=== PATIENT | male | born 1950 | race Caucasian/White ===

== ENCOUNTER 2016-12-24 16:57 | Outpatient (CLI) | payer MEDICARE, BC ==
[~2016-12-24] VITALS: Ht 182.9 cm; Wt 68.1 kg
[~2016-12-24 16:57] MED LIST: ACHD5005 PO; AMOX500C2 PO; AMT10T PO; ASP81TEC PO; ATRV10T PO; BIMA2.5D3 OS; BRIM5DRO12 OS; BUDE3CAP5 PO; CARB10DR OP; CARB10DR OS; CHOL100011 PO; CLD600T PO; CPR500T PO; CYAN100053 IJ; CYAN100053 INJ; DCS100C; DIAZ-345 PO; ENDOCORT PO; FLC1T; FLC1T PO; FNT25TD; FOLI1TAB24 PO; FOLI1TAB6 PO; HCTZ12.5T PO; HYDR-229 PO; HYDR-2890 PO; HYDR-3063 PO; HYDR-31; HYDR25TA4 PO; HYOS0.1283 SL; KCL20TCR PO; KETO-22 PO; LORA0.5T PO; MAGN400C PO; METH2.5T PO; METO100T2 PO; METR500T PO; MSL250CCR; MSL250CCR PO; MTP50T PO; MTX2.5T; MULT-608 PO; MULT-974 PO; NORVASC; OLME20TA5; OLME20TA5 PO; OLME40TA14; OMEP20TA2 PO; ONDA4TAB8 PO; ONDAN4ODT PO; PENTASA; PENTASA 500 MG PO; PHEN100T17; PHEN200T27 PO; POTA99TA25 PO; PRED20TA PO; PREG50C PO; PRX10T; PYRI100T59 PO; SERT100T PO; SERT50TA2 PO; SERT50TA9 PO; SUMA100T2 PO; Terazosin Hcl PO; VALTREX; VERA100C4 PO; VERA240C2 PO; VERA240T98 PO; ZLP10T; ZLP5T PO; ZOLP10TA5 PO; ZOLP5TAB6 PO; [UNRECOGNIZED DRUG - OTHER]
--- OUTSIDE RECORDS SUMMARY | 2016-12-24 17:01 | XMS REPORT ---
Author Author FELICIA CERVANTES Organization [employer] Address Unknown Phone Unavailable Care Team Providers Care Electronic Prepress Technician Name Role Phone FELICIA CERVANTES CP Unavailable Allergies, Adverse Reactions, Alerts Substance Reaction Event Type raglan Info Not Available Non Drug Allergy Problems Problem Type Condition Code Onset Dates Condition Status Assessment Dental caries K02.9 Active Assessment Dental examination Z01.20 Active Medications Medication Code System Code Instructions Start Date End Date Status Dosage Restasis [facility] [address]-78 not defined Lumigan [facility] [address]-80 not defined Verapamil HCl [facility] [address]-15 not defined Dexilant [facility] [address]-85 not defined Folic Acid [facility] [address]-18 not defined Alphagan P [facility] [id number] not defined Benicar [facility] [id number] not defined Procedures Procedure Coding System Code Date INTRAORL-PERIAPICAL 1 FILM 44613 CPT-4 D0220 June 04, 2016 EXTRAC ERUPTED TOOTH/EXPOSED ROOT CPT-4 D7140 June 04, 2016 LTD ORAL EVALUATION - PROBLEM FOCUS CPT-4 D0140 June 04, 2016 Vital Signs Date/Time: June 04, 2016 Blood Pressure Diastolic 63 mmHg Blood Pressure Systolic 117 mmHg Results No Known Results Summary Purpose [employer] Submission
[2016-12-24 17:20] VITALS: BP 158/93
[2016-12-24 17:45] LABS: BILIRUBIN,URINE NEGATIVE (NEGATIVE); KETONES,URINE 1+ (NEGATIVE); LEUKOCYTE ESTERASE ,URINE 1+ (NEGATIVE); NITRITE,URINE NEGATIVE (NEGATIVE); PH,URINE 5 (5-9); PROTEIN,URINE 3+ (NEGATIVE); UROBILINOGEN,URINE NORMAL (NORMAL)
[2016-12-24] MEDS ORDERED: NS IV 1000 ML 1,000 ML ONE (17:46)
[2016-12-24] MEDS ORDERED: NS IV 1000 ML 1,000 ML IV NR (18:00)
[2016-12-24] MEDS ORDERED: ONDANSETRON 4 MG/2 ML (SDV) Z0FRAN IV PRN (18:00)
[2016-12-24 18:25] LABS: HYALINE CASTS, URINE >50 /LPF
== END 2016-12-24 19:15 | disposition home or self-care (01) ==
LOC: 4THo 16:57 → SDC 19:15
PROVIDERS: ATTEND Nurse Practitioner Family
DX: E86.0 Dehydration (principal); K50.90 Crohn's disease, unspecified, without complications
CPT/HCPCS: 81000; 87088; 96365; 96374

== ENCOUNTER 2017-02-22 00:36 | Observation (INO) | payer MEDICARE, BC ==
[~2017-02-22] VITALS: Ht 177.8 cm; Wt 69.2 kg
[2017-02-22] VITALS (13 sets, daily range): BP systolic 127–152; BP diastolic 69–90
[2017-02-22 00:50] LABS: BASOPHILS % (AUTO) 0 % (0-10); EOSINOPHILS # (AUTO) 0.1 10^3/uL (0.0-0.3); EOSINOPHILS % (AUTO) 1 % (0-10); LYMPHOCYTES # (AUTO) 1.7 X 10^3 (1.0-4.0); LYMPHOCYTES % (AUTO) 21 % (12-44); MEAN CORPUSCULAR HEMOGLOBIN 32 PG (25-34); MEAN CORPUSCULAR HGB CONC 34 G/DL (32-36); MEAN CORPUSCULAR VOLUME 95 FL (80-99); MEAN PLATELET VOLUME 10.3 FL (7.4-10.4); MONOCYTES # (AUTO) 1.1 X 10^3 (0.0-1.0); MONOCYTES % (AUTO) 14 % (0-12); NEUTROPHILS % (AUTO) 64 % (42-75); PLATELET COUNT 152 10^3/uL (130-400); RED BLOOD COUNT 3.66 10^6/uL (4.35-5.85); RED CELL DISTRIBUTION WIDTH 13.1 % (10.0-14.5); WHITE BLOOD COUNT 7.8 10^3/uL (4.3-11.0)
[2017-02-22 01:00] LABS: INR 1.1 (0.8-1.4); PROTHROMBIN TIME PATIENT 13.6 SEC (12.2-14.7)
[2017-02-22 01:09] LABS: ALANINE AMINOTRANSFERASE 42 U/L (0-55); ALBUMIN 3.3 G/DL (3.2-4.5); ANION GAP 9 MMOL/L (5-14); ASPARTATE AMINO TRANSFERASE 45 U/L (5-34); BILIRUBIN,TOTAL 0.6 MG/DL (0.1-1.0); BLOOD UREA NITROGEN 22 MG/DL (7-18); BUN/CREATININE RATIO 14; CALCIUM 8.4 MG/DL (8.5-10.1); CARBON DIOXIDE 21 MMOL/L (21-32); CHLORIDE 109 MMOL/L (98-107); CREATININE SERUM 1.58 MG/DL (0.60-1.30); GFR ESTIMATED 44; GLUCOSE 111 MG/DL (70-105); SODIUM 139 MMOL/L (135-145); TOTAL PROTEIN 6.2 G/DL (6.4-8.2)
[2017-02-22 01:15] LABS: TROPONIN I < 0.30 NG/ML (<0.30)
[2017-02-22] MEDS ORDERED: NALOXONE 0.4 MG/ML 1 ML (NARCAN) VIAL IV ONE (01:15)
[2017-02-22] MEDS ORDERED: NS IV 1000 ML 1,000 ML IV ONE (01:31)
[2017-02-22] MEDS ORDERED: NALOXONE 2 MG/2 ML (NARCAN) SYR IV ONE (01:45)
--- NOTE | 2017-02-22 02:03 | ED Neurological Problem ---
General Chief Complaint: Neuro-Stroke Like Symptoms Stated Complaint: POSS STROKE Nursing Triage Note: BROUGHT IN BY [facility] FOR ALTERED MENTAL STATUS. LAST KNOWN WELL TIME PER FAMILY 2330. EMS REPORTS FAMILY STATED PT UNABLE TO WALK ET. CONFUSED AT APPROX. 0015. PT REPORTS FALLING APPROX. 3 DAYS AGO FROM STANDING POSITION. Nursing Sepsis Screen: No Definite Risk Source: patient, family, EMS Exam Limitations: clinical condition History of Present Illness Time seen by provider: 00:38 Initial Comments This 66-year-old man is brought to the emergency room via EMS for reasons of altered mental status. EMS initially reported last known well time was at 23: 30. However, when his provided further history she stated he actually started becoming less responsive at 19:00. Stroke activation had been paged upon his arrival. EMS reported fingerstick blood sugar was 190. They also report his mental status has improved somewhat since they arrived at the house. Patient denied pain but he is grabbing his neck and head. His reports he has been having left-sided neck pain. Patient is normally ambulatory and talkative at baseline. Patient eventually admits to taking multiple types of narcotic pain medications in addition to Ambien and benzodiazepines. NIH stroke score was 3 as obtained by nursing staff. No focal deficits were found on exam. Patient also reportedly had a fall a few days ago. He cannot remember if he struck his head. Allergies and Home Medications Allergies Coded Allergies: adalimumab (Verified Allergy, Unknown, 03/07/14) infliximab (Verified Allergy, Unknown, NEAR , 03/07/14) meloxicam (Unverified Allergy, Unknown, 12/24/16) metoclopramide (Verified Allergy, Unknown, 03/07/14) aspirin (Verified Adverse Reaction, Unknown, 03/07/14) Was told by his physician not to take it due to his Crohn's disease. Home Medications Alprazolam 0.5 Mg Tablet, 1 TAB PO TID, #90 (Reported) Bimatoprost 2.5 Ml Drops, 1 DROP OS HS, (Reported) Brimonidine Tartrate 10 Ml Drops, 1 DROP OS BID, (Reported) Cholecalciferol 1,000 Unit Capsule, 1,000 UNIT PO DAILY, (Reported) Cyanocobalamin 1,000 Mcg/Ml Vial, 1,000 MCG INJ MONTHLY , (Reported) Cyanocobalamin 1,000 Mcg/Ml Inj, 1, #2 (Reported) Folic Acid 1 Mg Tablet, 2 MG PO DAILY, (Reported) TAKES 2 (1MG) TABLETS Folic Acid/Mv,Fe,Other Min 1 Each Tablet, 1 TAB PO DAILY, (Reported) Hydrocodone Bit/Acetaminophen 1 Each Tablet, 1-2 EACH PO Q6H PRN for PAIN, ( Reported) Hyoscyamine Sulfate 0.125 Mg Tab.subl, 1-2 TAB SL Q4H, #15 Prescribed by: CHIRAG PONCE on 03/21/162149 Lorazepam 0.5 Mg Tablet, 0.5 MG PO Q8H PRN for ANXIETY, (Reported) Olmesartan Medoxomil 20 Mg Tablet, 40 MG PO DAILY, (Reported) Omeprazole 20 Mg Tablet.dr, 20 MG PO DAILY, (Reported) Ondansetron 4 Mg Tab.rapdis, 4 MG PO Q4H, #10 Prescribed by: CHIRAG PONCE on 03/21/162149 Oxycodone HCl 30 Mg Tab.er.12h, 1 TAB PO BID, #60 (Reported) Prednisone 20 Mg Tablet, 20 MG PO DAILY, #10 Prescribed by: AMISHA RIGGS on 12/27/14 0712 Sertraline Hcl 50 Mg Tablet, 50 MG PO DAILY, (Reported) Verapamil Hcl 240 Mg Tablet.sa, 240 MG PO DAILY, (Reported) Zolpidem Tartrate 10 Mg Tablet, 5-10 MG PO HS, (Reported) TAKES 1/2 TO 1 (10MG) TABLET [Terazosin Hcl] 2 MG CAP, 2 MG PO HS, #30 Prescribed by: AMISHA RIGGS on 12/27/1412 Constitutional: see HPI Eyes: No Symptoms Reported Ears, Nose, Mouth, Throat: no symptoms reported Respiratory: no symptoms reported Cardiovascular: no symptoms reported Gastrointestinal: no symptoms reported Genitourinary: no symptoms reported Musculoskeletal: see HPI Skin: no symptoms reported Psychiatric/Neurological: See HPI Endocrine: No Symptoms Reported Past Ltbtsaf-Zfbxmx-Mwuzwg Hx Patient Social History Alcohol Use: Denies Use Recreational Drug Use: No Smoking Status: Never a Smoker Recent Foreign Travel: No Contact w/Someone Who Travel: No Recent Infectious Disease Expo: No Recent Hopitalizations: No Immunizations Up To Date Tetanus Booster (TDap): Unknown Date of Pneumonia Vaccine: Nov 26, 2009 Date of Influenza Vaccine: Aug 24, 2016 Seasonal Allergies Seasonal Allergies: No Surgeries HX Surgeries: Yes (HEART CATH, 2015, ESWL AND STONEBASKETING, L KNEE SCOPE X2 ) Surgeries: Abdominal (bowel resection), Eye Surgery, Gallbladder Respiratory Hx Respiratory Disorders: No Cardiovascular Hx Cardiac Disorders: Yes Cardiac Disorders: Hypertension Neurological Hx Neurological Disorders: Yes (STROKE LAST 12/2014) Neurological Disorders: Stroke, TIA Reproductive System Hx Reproductive Disorders: No Sexually Transmitted Disease: No Genitourinary Hx Genitourinary Disorders: Yes Genitourinary Disorders: Kidney Stones Gastrointestinal Hx Gastrointestinal Disorders: Yes (HEARTBURN) Gastrointestinal Disorders: Crohns Disease, Ulcer Musculoskeletal Hx Musculoskeletal Disorders: Yes Musculoskeletal Disorders: Arthritis Endocrine Hx 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) HEENT HX ENT Disorders: Yes HEENT Disorders: Cataract, Glaucoma Hearing Impairment: Denies Cancer Hx Cancer: No Psychosocial Hx Psychiatric Problems: Yes Behavioral Health Disorders: Sleep Difficulties, Anxiety Integumentary HX Skin/Integumentary Disorder: No Blood Transfusions Hx Blood Disorders: No Adverse Reaction to a Blood Tr: No Family Medical History Family Medial History: Family history: Cardiovascular disease 03 FATHER 03 MOTHER 09 BROTHER 09 BROTHER 09 BROTHER 09 BROTHER Family history: Coronary thrombosis 09 BROTHER 09 BROTHER 09 BROTHER 09 BROTHER Family history: Diabetes mellitus 03 FATHER Family history: Hypertension 09 SISTER History of - respiratory disease 03 MOTHER Myocardial infarction 09 BROTHER 09 BROTHER 09 BROTHER 09 BROTHER Physical Exam Vital Signs Vital Sign - Last 12Hours 02/22/17 00:45 Temp 98.5 Pulse 81 Resp 13 B/P (MAP) 123/80 Pulse Ox 97 O2 Delivery Room Air FiO2 97 Capillary Refill : Less Than 3 Seconds General Appearance: WD/WN, no apparent distress, other (hypersomnolent) HEENT: PERRL/EOMI, normal ENT inspection, pharynx normal Neck: normal inspection, tender lateral (left) Respiratory: lungs clear, normal breath sounds, no respiratory distress, no accessory muscle use Cardiovascular: regular rate, rhythm, no edema, no murmur Gastrointestinal: normal bowel sounds, non tender, soft Extremities: normal inspection, no pedal edema Neurologic/Psychiatric: 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 Hypersomnolent.) Crainal Nerves: normal hearing, PERRL, other (sluggish speech) Motor/Sensory: no motor deficit, no sensory deficit Skin: normal color, warm/dry Stroke NIH Stroke Scale Assessment Select: Initial Level of Consciousness: 1=Aroused by mild stimuli Level of Consciousness-Questio: 1=Answers one question LOC Commands: 0=Performs both tasks Gaze: 1=Partial Gaze Palsy Visual Machado: 0=No visual loss Facial Movement (Facial Paresi: 0=Normal symmetrical mnt Motor Function-Arms Right: 0=No drift Motor Function-Arms Left: 0=No drift Motor Function-Legs Right: 0=No drift Motor Function-Legs Left: 0=No drift Limb Ataxia: 0=Absent Sensory: 0=Normal:no loss Best Language: 0=No aphasia Dysarthria: 0=Normal Extinction & Inattention: 0=No abnormality NIH Stroke Scale Score: 3 Stroke Thrombolytic Exclusion Age 18 or Over: Yes Progress/Results/Core Measures Results/Orders Lab Results Laboratory Tests Test 02/22/17 00:45 Range/Units White Blood Count 7.8 4.3-11.0 10^3/uL Red Blood Count 3.66 L 4.35-5.85 10^6/uL Hemoglobin 11.7 L 13.3-17.7 G/DL Hematocrit 35 L 40-54 % Mean Corpuscular Volume 95 80-99 FL Mean Corpuscular Hemoglobin 32 25-34 PG Mean Corpuscular Hemoglobin Concent 34 32-36 G/DL Red Cell Distribution Width 13.1 10.0-14.5 % Platelet Count 152 130-400 10^3/uL Mean Platelet Volume 10.3 7.4-10.4 FL Neutrophils (%) (Auto) 64 42-75 % Lymphocytes (%) (Auto) 21 12-44 % Monocytes (%) (Auto) 14 H 0-12 % Eosinophils (%) (Auto) 1 0-10 % Basophils (%) (Auto) 0 0-10 % Neutrophils # (Auto) 5.0 1.8-7.8 X 10^3 Lymphocytes # (Auto) 1.7 1.0-4.0 X 10^3 Monocytes # (Auto) 1.1 H 0.0-1.0 X 10^3 Eosinophils # (Auto) 0.1 0.0-0.3 10^3/uL Basophils # (Auto) 0.0 0.0-0.1 10^3/uL Prothrombin Time 13.6 12.2-14.7 SEC INR Comment 1.1 0.8-1.4 Activated Partial Thromboplast Time 29 24-35 SEC D-Dimer 1.09 H 0.00-0.49 UG/ML Sodium Level 139 135-145 MMOL/L Potassium Level 4.0 3.6-5.0 MMOL/L Chloride Level 109 H 98-107 MMOL/L Carbon Dioxide Level 21 21-32 MMOL/L Anion Gap 9 5-14 MMOL/L Blood Urea Nitrogen 22 H 7-18 MG/DL Creatinine 1.58 H 0.60-1.30 MG/DL Estimat Glomerular Filtration Rate 44 BUN/Creatinine Ratio 14 Glucose Level 111 H 70-105 MG/DL Calcium Level 8.4 L 8.5-10.1 MG/DL Total Bilirubin 0.6 0.1-1.0 MG/DL Aspartate Amino Transf (AST/SGOT) 45 H 5-34 U/L Alanine Aminotransferase (ALT/SGPT) 42 0-55 U/L Alkaline Phosphatase 96 40-136 U/L Troponin I < 0.30 <0.30 NG/ML Total Protein 6.2 L 6.4-8.2 G/DL Albumin 3.3 3.2-4.5 G/DL My Orders Orders - KADEEM COTTON MD Cbc With Automated Diff (02/22/17 00:42) Protime With Inr (02/22/17 00:42) Partial Thromboplastin Time (02/22/17 00:42) Comprehensive Metabolic Panel (02/22/17 00:42) Fibrin Degradation Products (02/22/17 00:42) Troponin I (02/22/17 00:42) Ua Culture If Indicated (02/22/17 00:42) Chest 1 View, Ap/Pa Only (02/22/17 00:42) Ekg Tracing (02/22/17 00:42) Accucheck Stat ONCE (02/22/17 00:42) Saline Lock/Iv-Start (02/22/17 00:42) Saline Lock/Iv-Start (02/22/17 00:42) Vital Signs-Stroke Q1H (02/22/17 00:42) Ct Head Wo-R/O Stroke (02/22/17 00:42) O2 (02/22/17 00:42) Intake & Output 06,14,22 (02/22/17 00:42) Monitor-Rhythm Ecg Trace Only (02/22/17 00:42) Dysphagia Screening Tool (02/22/17 00:42) Naloxone Injection (Narcan Injection) (02/22/17 01:15) Ns Iv 1000 Ml (Sodium Chloride 0.9%) (02/22/17 01:31) Naloxone Injection (Narcan Injection) (02/22/17 01:45) Medications Given in ED Current Medications Medications Dose Ordered Sig/Chinedu Route Start Time Stop Time Status Last Admin Dose Admin Naloxone HCl 0.4 mg ONCE ONCE IV 02/22/17 01:15 02/22/17 01:16 DC 02/22/17 01:15 0.4 MG Naloxone HCl 1 mg ONCE ONCE IV 02/22/17 01:45 02/22/17 01:46 DC 02/22/17 01:35 1 MG Sodium Chloride 1,000 ml @ 0 mls/hr Q0M ONCE IV 02/22/17 01:31 02/22/17 01:32 DC 02/22/17 01:35 0 MLS/HR Vital Signs/I&O Vital Sign - Last 12Hours 02/22/17 02/22/17 02/22/17 00:45 00:45 01:17 Temp 98.5 Pulse 81 88 Resp 13 24 B/P (MAP) 123/80 144/82 Pulse Ox 97 100 O2 Delivery Room Air Room Air FiO2 97 Blood Pressure Mean: 94 Progress Note : Progress Note Stroke activation was paged out. However, patient was not a TPA candidate due to time of onset being greater than 4.5 hours. He also is lacking definite focal neurologic deficits that would suggest stroke. Patient's medication history suggests this hypersomnolence is related to narcotic overdose or other medication effects. Patient was given Narcan 0.4 mg with slight improvement. An additional 1 mg was administered and patient suddenly developed narcotic withdraw. He became agitated and started hallucinating. ECG Initial ECG Impression Date: Feb 22, 2017 Initial ECG Impression Time: 01:07 Initial ECG Rate: 82 Initial ECG Rhythm: Normal Sinus Initial ECG Intervals: Normal Initial ECG Impression: Normal Comment Normal sinus rhythm with no ST elevation or depression. No abnormal intervals or axis deviation. Diagnostic Imaging Diagonstic Imaging: Xray Plain Films/CT/US/NM/MRI: chest Comments Chest x-ray viewed by me. Report not yet available. No acute abnormalities appreciated. Diagonstic Imaging: CT Plain Films/CT/US/NM/MRI: head Comments CT head viewed by me and discussed with the radiologist. Stat Rad report reviewed. No evidence of acute intracranial abnormalities. Departure Communication Time/Spoke to Admitting Phy: 02:00 Communication Case reviewed with Dr. Mustafa who is agreeable to admission for observation. Impression Impression: Primary Impression: Narcotic overdose Qualified Codes: T40.601A - Poisoning by unspecified narcotics, accidental ( unintentional), initial encounter Additional Impressions: Altered mental status Qualified Codes: R41.82 - Altered mental status, unspecified Renal insufficiency Disposition: ADMITTED INPATIENT Condition: Stable Departure-Patient Inst. Referrals: RED HERNDON MD (PCP/Family) Primary Care Physician KADEEM COTTON MD Feb 22, 2017 02:03
[2017-02-22] MEDS ORDERED: CNC1KV (02:17)
[2017-02-22] MEDS ORDERED: OXYC30TA77 PO (02:17)
[2017-02-22] MEDS ORDERED: ALPR0.5T7 PO (02:17)
[2017-02-22] MEDS ORDERED: ONDANSETRON 4 MG/2 ML (SDV) Z0FRAN IVP PRN (04:30)
[2017-02-22] MEDS ORDERED: NS IV 1000 ML 1,000 ML IV SCH (04:30)
[2017-02-22] MEDS ORDERED: NALOXONE 0.4 MG/ML 1 ML (NARCAN) VIAL IV PRN (05:00)
[2017-02-22] MEDS ORDERED: CATHETER FLUSH 10 ML SYR IV PRN (05:15)
[2017-02-22] MEDS ORDERED: POTASSIUM CL 10MEQ/50ML IVPB 50 ML IV SCH (06:00)
[2017-02-22] MEDS ORDERED: CATHETER FLUSH 10 ML SYR IV SCH (06:00)
[2017-02-22] MEDS ORDERED: KCL 20 MEQ TAB (K-DUR) PO SCH (06:00)
[2017-02-22] MEDS ORDERED: MAGNESIUM 1 GM/100 ML IVPB 100 ML IV SCH (06:00)
[2017-02-22 06:22] LABS: BASOPHILS % (AUTO) 0 % (0-10); EOSINOPHILS % (AUTO) 0 % (0-10); LYMPHOCYTES # (AUTO) 0.9 X 10^3 (1.0-4.0); LYMPHOCYTES % (AUTO) 15 % (12-44); MEAN CORPUSCULAR HEMOGLOBIN 32 PG (25-34); MEAN CORPUSCULAR HGB CONC 33 G/DL (32-36); MEAN CORPUSCULAR VOLUME 96 FL (80-99); MEAN PLATELET VOLUME 10.3 FL (7.4-10.4); MONOCYTES # (AUTO) 0.6 X 10^3 (0.0-1.0); MONOCYTES % (AUTO) 9 % (0-12); NEUTROPHILS # (AUTO) 4.9 X 10^3 (1.8-7.8); NEUTROPHILS % (AUTO) 76 % (42-75); PLATELET COUNT 120 10^3/uL (130-400); RED BLOOD COUNT 2.95 10^6/uL (4.35-5.85); RED CELL DISTRIBUTION WIDTH 12.9 % (10.0-14.5); WHITE BLOOD COUNT 6.5 10^3/uL (4.3-11.0)
--- NOTE | 2017-02-22 06:25 | Diagnostic Imaging Report ---
INDICATION: Weakness. Comparison is made with prior examination from 03/21/16. FINDINGS: There is mild prominence of the ventricles and sulci. There is mild chronic microvascular ischemic disease. There is no hydrocephalus. There is no midline shift. There is no intracranial mass, hemorrhage or extra-axial fluid collection. Sinuses and mastoid air cells are clear. IMPRESSION: No acute intracranial abnormality. Atrophy and mild chronic microvascular ischemic disease Dictated by: Dictated on workstation # [id number]
[2017-02-22 07:03] LABS: ALANINE AMINOTRANSFERASE 29 U/L (0-55); ALBUMIN 2.4 G/DL (3.2-4.5); ANION GAP 6 MMOL/L (5-14); ASPARTATE AMINO TRANSFERASE 31 U/L (5-34); BILIRUBIN,TOTAL 0.5 MG/DL (0.1-1.0); BLOOD UREA NITROGEN 15 MG/DL (7-18); BUN/CREATININE RATIO 15; CALCIUM 6.7 MG/DL (8.5-10.1); CARBON DIOXIDE 17 MMOL/L (21-32); CHLORIDE 117 MMOL/L (98-107); CREATININE SERUM 0.98 MG/DL (0.60-1.30); GFR ESTIMATED > 60; GLUCOSE 113 MG/DL (70-105); MAGNESIUM 1.5 MG/DL (1.8-2.4); PHOSPHORUS 1.9 MG/DL (2.3-4.7); POTASSIUM 3.4 MMOL/L (3.6-5.0); SODIUM 140 MMOL/L (135-145); TOTAL PROTEIN 4.6 G/DL (6.4-8.2)
[2017-02-22] MEDS: POTASSIUM CL 10MEQ/50ML IVPB 50 ML IV SCH ×2 (07:55→08:48)
[2017-02-22] MEDS: MAGNESIUM 1 GM/100 ML IVPB 100 ML IV SCH ×2 (07:55→08:48)
--- NOTE | 2017-02-22 08:25 | Diagnostic Imaging Report ---
INDICATION: Weakness. COMPARISON: March 21, 2016 TECHNIQUE: A single frontal radiograph of the chest dated February 22, 2017. FINDINGS: The cardiac silhouette is within normal limits. No significant pulmonary vascular congestion. Surgical changes are noted at the expected location of the GE junction. Additional surgical clips are seen within the right upper quadrant of the abdomen. The lungs are clear of focal pulmonary opacity. No pleural effusion. No pneumothorax. Mild elevation of the left hemidiaphragm. Mild patient rotation is present. No acute osseous abnormality. IMPRESSION: Postsurgical and chronic findings, as described above, without acute cardiopulmonary abnormality. Dictated by: Dictated on workstation # [id number]
[2017-02-22] MEDS ORDERED: KETOROLAC 30 MG/ML VIAL IVP NR (10:42)
[2017-02-22] MEDS ORDERED: CYCLOBENZAPRINE 10 MG (FLEXERIL) TAB PO NR (10:43)
--- NOTE | 2017-02-22 10:48 | Short Stay Summary ---
History of Present Illness History of Present Illness Reason for visit/HPI PT IS A 66 Y/O MALE WHO IS KNOWN TO ME FROM CLINIC. THE PATIENT REPORTS THAT HE HAS BEEN WORKING IN THE YARD, LIFTING BAGS OF CONCRETE - AND THINKS THAT HE MAY HAVE TWISTED HIS KNEE CAUSING PAIN IN THE KNEE ON THE RIGHT. HE ALSO REPORTS THAT HE HAS HAD A STIFF NECK FOR ABOUT 2-3 DAYS - WORSE ON LEFT THAN RIGHT. THE PATIENT REPORTS THAT HE TOOK TWO BENADRYL LAST NIGHT, TWO HYDROCODONE, HIS USUAL OXYCONTIN AND AN AMBIEN TO "HELP ME GET TO SLEEP" BECAUSE THE PAIN HIS HIS NECK WAS TOO INTENSE TO ALLOW HIM TO GET COMFORTABLE TO GO TO SLEEP. HE DENIES INTENTIONAL OVERDOSE OF MEDICATIONS Date of Admission Feb 22, 2017 at 02:02 Date of Discharge Attending Physician Red Becerra MD Admitting Physician Red Becerra MD Consult Allergies and Home Medications Allergies Coded Allergies: adalimumab (Verified Allergy, Unknown, 03/07/14) infliximab (Verified Allergy, Unknown, NEAR , 03/07/14) meloxicam (Unverified Allergy, Unknown, 12/24/16) metoclopramide (Verified Allergy, Unknown, 03/07/14) aspirin (Verified Adverse Reaction, Unknown, 03/07/14) Was told by his physician not to take it due to his Crohn's disease. Home Medications Alprazolam 0.5 Mg Tablet, 1 TAB PO TID, #90 (Reported) Bimatoprost 2.5 Ml Drops, 1 DROP OS HS, (Reported) Brimonidine Tartrate 10 Ml Drops, 1 DROP OS BID, (Reported) Cholecalciferol 1,000 Unit Capsule, 1,000 UNIT PO DAILY, (Reported) Cyanocobalamin 1,000 Mcg/Ml Vial, 1,000 MCG INJ MONTHLY , (Reported) Cyanocobalamin 1,000 Mcg/Ml Inj, 1, #2 (Reported) Folic Acid 1 Mg Tablet, 2 MG PO DAILY, (Reported) TAKES 2 (1MG) TABLETS Folic Acid/Mv,Fe,Other Min 1 Each Tablet, 1 TAB PO DAILY, (Reported) Hydrocodone Bit/Acetaminophen 1 Each Tablet, 1-2 EACH PO Q6H PRN for PAIN, ( Reported) Hyoscyamine Sulfate 0.125 Mg Tab.subl, 1-2 TAB SL Q4H, #15 Prescribed by: CHIRAG PONCE on 03/21/162149 Lorazepam 0.5 Mg Tablet, 0.5 MG PO Q8H PRN for ANXIETY, (Reported) Olmesartan Medoxomil 20 Mg Tablet, 40 MG PO DAILY, (Reported) Omeprazole 20 Mg Tablet.dr, 20 MG PO DAILY, (Reported) Ondansetron 4 Mg Tab.rapdis, 4 MG PO Q4H, #10 Prescribed by: CHIRAG PONCE on 03/21/162149 Oxycodone HCl 30 Mg Tab.er.12h, 1 TAB PO BID, #60 (Reported) Prednisone 20 Mg Tablet, 20 MG PO DAILY, #10 Prescribed by: AMISHA RIGGS on 12/27/1412 Sertraline Hcl 50 Mg Tablet, 50 MG PO DAILY, (Reported) Verapamil Hcl 240 Mg Tablet.sa, 240 MG PO DAILY, (Reported) Zolpidem Tartrate 10 Mg Tablet, 5-10 MG PO HS, (Reported) TAKES 1/2 TO 1 (10MG) TABLET [Terazosin Hcl] 2 MG CAP, 2 MG PO HS, #30 Prescribed by: AMISHA RIGGS on 12/27/1412 Past Xefaxoj-Zuhuhb-Allbaq Hx Patient Social History Marrital Status: Living Status: LIVES AT HOME WITH Employed/Student: retired Alcohol Use: Denies Use Recreational Drug Use: No Smoking Status: Never a Smoker Physical Abuse Screen: No Sexual Abuse: No Recent Foreign Travel: No Contact w/other who traveled: No Recent Hopitalizations: No Recent Infectious Disease Expo: No Immunizations Up To Date Tetanus Booster (TDap): Unknown Date of Pneumonia Vaccine: Nov 26, 2009 Date of Influenza Vaccine: Aug 24, 2016 Seasonal Allergies Seasonal Allergies: No Surgeries HX Surgeries: Yes (HEART CATH, 2015, ESWL AND STONEBASKETING, L KNEE SCOPE X2 ) Surgeries: Abdominal (bowel resection), Eye Surgery, Gallbladder Respiratory Hx Respiratory Disorders: No Cardiovascular Hx Cardiovascular Disorders: Yes Cardiac Disorders: Hypertension Neurological Hx Neurological Disorders: Yes (STROKE LAST 12/2014) Neurological Disorders: Stroke, TIA Reproductive System Hx Reproductive Disorders: No Sexually Transmitted Disease: No Genitourinary Hx Genitourinary Disorders: Yes Genitourinary Disorders: Kidney Stones Gastrointestinal Hx Gastrointestinal Disorders: Yes (HEARTBURN) Gastrointestinal Disorders: Gastroesophageal Reflux, Crohns Disease, Ulcer Musculoskeletal Hx Musculoskeletal Disorders: Yes Musculoskeletal Disorders: Arthritis Endocrine Hx 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) HEENT HX ENT Disorders: Yes HEENT Disorders: Cataract, Glaucoma Loss of Vision: Denies Hearing Impairment: Denies Cancer Hx Cancer: No Psychosocial Hx Psychiatric Problems: Yes Behavioral Health Disorders: Sleep Difficulties, Anxiety Integumentary HX Skin/Integumentary Disorder: No Blood Transfusions Hx Blood Disorders: No Adverse Reaction to a Blood Tr: No Reviewed Nursing Assessment Reviewed/Agree w Nursing PMH: Yes Family Medical History Significant Family History: Heart Disease, COPD, Diabetes, Hypertension Family Hx: Family history: Cardiovascular disease 03 FATHER 03 MOTHER 09 BROTHER 09 BROTHER 09 BROTHER 09 BROTHER Family history: Coronary thrombosis 09 BROTHER 09 BROTHER 09 BROTHER 09 BROTHER Family history: Diabetes mellitus 03 FATHER Family history: Hypertension 09 SISTER History of - respiratory disease 03 MOTHER Myocardial infarction 09 BROTHER 09 BROTHER 09 BROTHER 09 BROTHER Constitutional: no symptoms reported, No fever, No malaise, No weakness EENTM: No hoarseness, No throat swelling Respiratory: No cough, No dyspnea on exertion, No short of breath Cardiovascular: No chest pain, No palpitations Gastrointestinal: No abdominal pain, No constipation, No diarrhea, No nausea, No vomiting Genitourinary: no symptoms reported Musculoskeletal: joint pain (RIGHT KNEE), joint swelling (RIGHT KNEE), neck pain (STIFF NECK ON RIGHT AND LEFT, WORSE ON LEFT) Skin: No lesions Psychiatric/Neurological: Anxiety, Denies Depressed Physical Exam Vital Signs Vital Sign - Last 12Hours 02/22/17 00:45 Temp 98.5 Pulse 81 Resp 13 B/P (MAP) 123/80 Pulse Ox 97 O2 Delivery Room Air FiO2 97 Capillary Refill : Less Than 3 Seconds General Appearance: No Apparent Distress, WD/WN Eyes: Bilateral Eye EOMI, Bilateral Eye Normal Inspection, Bilateral Eye PERRL HEENT: PERRL/EOMI, Pharynx Normal Neck: Limited Range of Motion (DECREASED ROM WITH TENDERNESS ON LEFT AT SCALENES) Respiratory: Chest Non Tender, Lungs Clear, Normal Breath Sounds, No Accessory Muscle Use, No Respiratory Distress Cardiovascular: Regular Rate, Rhythm, No Edema, No Gallop, Normal Peripheral Pulses Gastrointestinal: Normal Bowel Sounds, No Organomegaly, No Pulsatile Mass, Non Tender, Soft Rectal: Deferred Back: Normal Inspection Extremity: Normal Capillary Refill, Normal Inspection, No Calf Tenderness, No Pedal Edema, Other (SWELLING OF RIGHT KNEE - EFFUSION AROUND ENTIRE KNEE ON RIGHT, NO ERYTHEMA) Neurologic/Psychiatric: Alert, Oriented x3, No Motor/Sensory Deficits, Normal Mood/Affect, vegetable farmworker II-XII Norm as Tested Skin: Normal Color, Warm/Dry Lymphatic: No Adenopathy Clinical Quality Measures DVT/VTE Risk/Contraindication: Risk Factor Score Per Nursin RFS Level Per Nursing on Admit: 2=Moderate Contraindications-Pharm: Other *list below* Contraindications-Mechi: Other *list below* Other: PT BEING DISCHARGED TO HOME, NO NEED FOR SCD'S OR LOVENOX DUE TO SHORT STAY Stroke: Date of last known well: Feb 21, 2017 Short Stay Diagnosis Discharge Diagnosis-Short Stay Admission Diagnosis: ACCIDENTAL MEDICATION OVERDOSE SEVERE NECK PAIN ON LEFT RIGHT KNEE EFFUSION CHRONIC ANXIETY HYPERTENSION CHRONIC OSTEOARTHRITIS Final Discharge Diagnosis: ACCIDENTAL MEDICATION OVERDOSE SEVERE NECK PAIN ON LEFT RIGHT KNEE EFFUSION CHRONIC ANXIETY HYPERTENSION CHRONIC OSTEOARTHRITIS Conclusion Labs Laboratory Tests 02/22/17 00:45: White Blood Count 7.8, Red Blood Count 3.66L, Hemoglobin 11.7L, Hematocrit 35L, Mean Corpuscular Volume 95, Mean Corpuscular Hemoglobin 32, Mean Corpuscular Hemoglobin Concent 34, Red Cell Distribution Width 13.1, Platelet Count 152, Mean Platelet Volume 10.3, Neutrophils (%) (Auto) 64, Lymphocytes (%) (Auto) 21 , Monocytes (%) (Auto) 14H, Eosinophils (%) (Auto) 1, Basophils (%) (Auto) 0, Neutrophils # (Auto) 5.0, Lymphocytes # (Auto) 1.7, Monocytes # (Auto) 1.1H, Eosinophils # (Auto) 0.1, Basophils # (Auto) 0.0, Prothrombin Time 13.6, INR Comment 1.1, Activated Partial Thromboplast Time 29, D-Dimer 1.09H, Sodium Level 139, Potassium Level 4.0, Chloride Level 109H, Carbon Dioxide Level 21, Anion Gap 9, Blood Urea Nitrogen 22H, Creatinine 1.58H, Estimat Glomerular Filtration Rate 44, BUN/Creatinine Ratio 14, Glucose Level 111H, Calcium Level 8.4L, Total Bilirubin 0.6, Aspartate Amino Transf (AST/SGOT) 45H, Alanine Aminotransferase (ALT/SGPT) 42, Alkaline Phosphatase 96, Troponin I < 0.30, Total Protein 6.2L, Albumin 3.3 02/22/17 06:14: White Blood Count 6.5, Red Blood Count 2.95L, Hemoglobin 9.3#L, Hematocrit 28L, Mean Corpuscular Volume 96, Mean Corpuscular Hemoglobin 32, Mean Corpuscular Hemoglobin Concent 33, Red Cell Distribution Width 12.9, Platelet Count 120L, Mean Platelet Volume 10.3, Neutrophils (%) (Auto) 76H, Lymphocytes (%) (Auto) 15 , Monocytes (%) (Auto) 9, Eosinophils (%) (Auto) 0, Basophils (%) (Auto) 0, Neutrophils # (Auto) 4.9, Lymphocytes # (Auto) 0.9L, Monocytes # (Auto) 0.6, Eosinophils # (Auto) 0.0, Basophils # (Auto) 0.0, Sodium Level 140, Potassium Level 3.4L, Chloride Level 117H, Carbon Dioxide Level 17L, Anion Gap 6, Blood Urea Nitrogen 15, Creatinine 0.98, Estimat Glomerular Filtration Rate > 60, BUN/ Creatinine Ratio 15, Glucose Level 113H, Calcium Level 6.7L, Total Bilirubin 0.5 , Aspartate Amino Transf (AST/SGOT) 31, Alanine Aminotransferase (ALT/SGPT) 29, Alkaline Phosphatase 72, Total Protein 4.6L, Albumin 2.4L, Phosphorus Level 1.9L , Magnesium Level 1.5L Conclusion/Plan ACCIDENTAL MEDICATION OVERDOSE SEVERE NECK PAIN ON LEFT RIGHT KNEE EFFUSION CHRONIC ANXIETY HYPERTENSION CHRONIC OSTEOARTHRITIS PT ADMITTED TO THE HOSPITAL AFTER [facility] DOSING IN THE EMERGENCY DEPT - PT HAS CHRONIC ARTHRITIS PAIN THAT HE TAKES PREDNISONE FOR INSTEAD OF ANTI- INFLAMMATORIES DUE TO HX OF ALLERGY TO NSAID. DOSE OF IV STEROID X 1, RESUME HOME STEROID. NECK PAIN AND KNEE PAIN LED TO PT TAKING EXTRA MEDICATION LAST NIGHT - SPECIFICALLY BENADRYL, HYDROCODONE AND AMBIEN WHICH CAUSED CONFUSION. PT CAME TO AFTER NARCAN. - WE WILL TREAT HIS NECK PAIN WITH STEROID AND A DOSE OF MUSCLE RELAXER. MONITOR SYMPTOMS, DISCHARGE TO HOME. KNEE EFFUSION - MELISSA-WRAP, USE HOME STEROIDS. - AVOID HEAVY ACTIVITY OVER THE NEXT WEEK - PT TO NOT LIFT/CARRY THE CONCRETE BAGS THEY WEIGH ABOUT 50 POUNDS EACH. CHRONIC ANXIETY - RESUME HOME MEDS HTN - RESUME HOME MEDS CHRONIC OA - ON STEROIDS CHRONICALLY - RESUME HOME STEROID - ONE TIME DOSE OF STEROID IN HOSPITAL. PT HAS APPT ON FRIDAY AT THE OFFICE - TO KEEP APPT, MAY NEED TO SEE ORTHOPEDIC SURGEON FOR KNEE INFLAMMATION IF IT DOES NOT IMPROVE WITH REST AND STEROID. RED BECERRA MD Feb 22, 2017 10:48
[2017-02-22] MEDS ORDERED: methylPREDNISolone 125 MG (Solu-MEDROL) VIAL IV NR (10:55)
[2017-02-22] MEDS ORDERED: CYCL5TAB PO (11:09)
--- NOTE | 2017-02-22 11:11 | Discharge Inst-Complex ---
PDI Med Rec & Follow Up Appt. New Medications: Cyclobenzaprine HCl (Cyclobenzaprine HCl) 5 Mg Tablet 5 MG PO BID PRN for MUSCLE SPASMS, #10 TAB Continued Medications: Alprazolam (Alprazolam) 0.5 Mg Tablet 1 TAB PO TID, #90 Bimatoprost (Lumigan) 2.5 Ml Drops 1 DROP OS HS Brimonidine Tartrate (Alphagan P) 10 Ml Drops 1 DROP OS BID Cholecalciferol (Vitamin D3) 1,000 Unit Capsule 1000 UNIT PO DAILY Cyanocobalamin (Cyanocobalamin) 1,000 Mcg/Ml Vial 1000 MCG INJ MONTHLY Cyanocobalamin (Cyanocobalamin Injection) 1,000 Mcg/Ml Inj 1, #2 Folic Acid (Folic Acid) 1 Mg Tablet 2 MG PO DAILY TAKES 2 (1MG) TABLETS Folic Acid/Mv,Fe,Other Min (Centrum Complete Multivit Tab) 1 Each Tablet 1 TAB PO DAILY Hydrocodone Bit/Acetaminophen (Hydrocodon-Acetaminophn 10-325) 1 Each Tablet 1-2 EACH PO Q6H PRN for PAIN, TAB Hyoscyamine Sulfate (Levsin-Sl) 0.125 Mg Tab.subl 1-2 TAB SL Q4H for Abdominal Pain, #15 TAB Lorazepam (Ativan) 0.5 Mg Tablet 0.5 MG PO Q8H PRN for ANXIETY, TAB Olmesartan Medoxomil (Benicar) 20 Mg Tablet 40 MG PO DAILY Omeprazole (Omeprazole) 20 Mg Tablet.dr 20 MG PO DAILY Ondansetron (Zofran Odt) 4 Mg Tab.rapdis 4 MG PO Q4H for Nausea/Vomiting, #10 TAB Oxycodone HCl (Oxycontin) 30 Mg Tab.er.12h 1 TAB PO BID, #60 Prednisone (Prednisone) 20 Mg Tablet 20 MG PO DAILY, #10 TAB Sertraline Hcl (Sertraline Hcl) 50 Mg Tablet 50 MG PO DAILY Verapamil Hcl (Verapamil Er) 240 Mg Tablet.sa 240 MG PO DAILY [Terazosin Hcl] () 2 MG CAP 2 MG PO HS, #30 CAP Discontinued Medications: Zolpidem Tartrate (Zolpidem Tartrate) 10 Mg Tablet 5-10 MG PO HS TAKES 1/2 TO 1 (10MG) TABLET Prescription: Transmitted to Pharmacy Activity, Diet and PDI Resume Normal Activity: No (DO NOT LIFT MORE THAN 25 POUNDS) Discharge Diet: Regular Diet Driving Instructions: No Driving for 24 Hours Symptoms to Reoprt to : Appetite Changes, Fever Over 101 Degrees F, Pain/ Pressure in Chest, Shortness of Breath For Problems or Questions: Contact Your Physician, Go to Emergency Room RED HERNDON MD Feb 22, 2017 11:11
--- OUTSIDE RECORDS SUMMARY | 2017-03-18 09:07 | XMS REPORT ---
Author Author FELICIA CERVANTES Organization [employer] Address Unknown Phone Unavailable Care Team Providers Care Investigation Manager Name Role Phone FELICIA CERVANTES CP Unavailable Allergies, Adverse Reactions, Alerts Substance Reaction Event Type raglan Info Not Available Non Drug Allergy Problems Problem Type Condition Code Onset Dates Condition Status Assessment Dental caries K02.9 Active Assessment Dental examination Z01.20 Active Medications Medication Code System Code Instructions Start Date End Date Status Dosage Restasis [facility] [id number] not defined Lumigan FOR[facility] NAMED [facility] [id number] not defined Verapamil HCl FOR[facility] NAMED [facility] [id number] not defined Dexilant FOR[facility] NAMED [facility] [id number] not defined Folic Acid FORMER[facility] NAMED [facility] [id number] not defined Alphagan P FORMER[facility] NAMED [facility] [id number] not defined Benicar FORMER[facility] NAMED [facility] [id number] not defined Procedures Procedure Coding System Code Date INTRAORL-PERIAPICAL 1 FILM 53316 CPT-4 D0220 June 04, 2016 EXTRAC ERUPTED TOOTH/EXPOSED ROOT CPT-4 D7140 June 04, 2016 LTD ORAL EVALUATION - PROBLEM FOCUS CPT-4 D0140 June 04, 2016 Vital Signs Date/Time: June 04, 2016 Blood Pressure Diastolic 63 mmHg Blood Pressure Systolic 117 mmHg Results No Known Results Summary Purpose [employer] Submission
--- OUTSIDE RECORDS SUMMARY | 2017-03-18 09:08 | XMS REPORT ---
Author Author FELICIA CERVANTES Organization [employer] Address Unknown Phone Unavailable Care Team Providers Care Residue Furnace Operator Name Role Phone FELICIA CERVANTES Unavailable Allergies, Adverse Reactions, Alerts Substance Reaction Event Type raglan Info Not Available Non Drug Allergy Problems Problem Type Condition Code Onset Dates Condition Status Assessment Dental examination Z01.20 Active Medications Medication Code System Code Instructions Start Date End Date Status Dosage Dalia [facility] [place] [id number] not defined Procedures Procedure Coding System Code Date TX COMPS - UNUSUL CIRCUMSTANCES RPT CPT-4 D9930 June 12, 2016 Vital Signs Date/Time: June 12, 2016 Blood Pressure Diastolic 78 mmHg Blood Pressure Systolic 130 mmHg Results No Known Results Summary Purpose [employer] Submission
--- OUTSIDE RECORDS SUMMARY | 2017-03-18 09:09 | XMS REPORT | Continuity of Care Document ---
Author Author [facility] Organization [facility] Address Unknown Phone Unavailable Allergies Active Description Code Type Severity Reaction Onset Reported/Identified Relationship to Patient Clinical Status Yes adalimumab [id number] Drug Allergy Unknown N/A 03/07/2014 Yes aspirin [id number] Drug Allergy Unknown N/A 03/07/2014 Yes infliximab [id number] Drug Allergy Unknown NEAR 03/07/2014 Yes metoclopramide [id number] Drug Allergy Unknown N/A 03/07/2014 Yes meloxicam [id number] Drug Allergy Unknown N/A 12/24/2016 Medications Problems Date Dx Coded Attending Type Code Diagnosis Diagnosed By 09/25/2009 Ot 592.0 05/17/2011 Ot 250.00 DIAB CORAZON WO COMPL, TYPE II OR UNSPEC TY 05/17/2011 Ot 263.9 PROTEIN-LAURA MALNUTR NOS 05/17/2011 Ot 266.2 B-COMPLEX DEFIC NEC 05/17/2011 Ot 276.51 DEHYDRATION 05/17/2011 Ot 346.90 MIGRAINE UNSPECIFIED W/O INTRACT MGRN W/ 05/17/2011 Ot 365.9 GLAUCOMA NOS 05/17/2011 Ot 401.9 HYPERTENSION NOS 05/17/2011 Ot 555.9 REGIONAL ENTERITIS NOS 05/17/2011 Ot 560.9 INTESTINAL OBSTRUCT NOS 05/17/2011 Ot 565.1 ANAL FISTULA 05/17/2011 Ot 733.00 OSTEOPOROSIS NOS 05/17/2011 Ot V12.79 PERSONAL HISTORY OTH SPEC DIGESTIVE SYST 06/30/2011 Ot 592.0 CALCULUS OF KIDNEY 10/21/2011 Ot 041.04 STREPTOCOCCUS INFECTION NOS, GROUP D (EN 10/21/2011 Ot 041.49 OTHER AND UNSPECIFIED ESCHERICHIA COLI [ 10/21/2011 Ot 346.90 MIGRAINE UNSPECIFIED W/O INTRACT MGRN W/ 10/21/2011 Ot 365.9 GLAUCOMA NOS 10/21/2011 Ot 401.9 HYPERTENSION NOS 10/21/2011 Ot 555.9 REGIONAL ENTERITIS NOS 10/21/2011 Ot 566 ANAL RECTAL ABSCESS 10/21/2011 Ot V58.69 OTH MED,LT,CURRENT USE 10/24/2011 Ot 555.9 REGIONAL ENTERITIS NOS 10/24/2011 Ot 787.91 DIARRHEA 10/24/2011 Ot V58.69 OTH MED,LT,CURRENT USE 02/03/2012 Ot 724.5 BACKACHE NOS 02/03/2012 Ot V57.1 PHYSICAL THERAPY NEC 03/06/2012 Ot 592.0 CALCULUS OF KIDNEY 03/06/2012 Ot 789.00 ABDOMINAL PAIN, UNSPECIFIED SITE 11/27/2012 Ot 250.00 DIAB CORAZON WO COMPL, TYPE II OR UNSPEC TY 11/27/2012 Ot 275.2 DIS MAGNESIUM METABOLISM 11/27/2012 Ot 401.9 HYPERTENSION NOS 11/27/2012 Ot 555.9 REGIONAL ENTERITIS NOS 11/27/2012 Ot 584.9 ACUTE RENAL FAILURE, UNSPECIFIED 11/27/2012 Ot 590.80 PYELONEPHRITIS NOS 11/27/2012 Ot 591 HYDRONEPHROSIS 11/27/2012 Ot 592.0 CALCULUS OF KIDNEY 11/27/2012 Ot 592.1 CALCULUS OF URETER 11/27/2012 Ot 733.00 OSTEOPOROSIS NOS 03/05/2014 LAMONT CHIANG MD Ot 300.00 ANXIETY STATE NOS 03/05/2014 LAMONT CHIANG MD Ot 365.9 GLAUCOMA NOS 03/05/2014 LAMONT CHIANG MD Ot 366.9 CATARACT NOS 03/05/2014 LAMONT CHIANG MD Ot 403.90 HYPTNSV CHR KID DIS, UNSPEC, W CHR KD ST 03/05/2014 LAMONT CHIANG MD Ot 426.11 ATRIOVENT BLOCK-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 03/05/2014 LAMONT CHIANG MD Ot 555.9 REGIONAL ENTERITIS NOS 03/05/2014 LAMONT CHIANG MD Ot 585.3 CHRONIC KIDNEY DISEASE, STAGE III (MODER 03/05/2014 LAMONT CHIANG MD Ot 780.2 SYNCOPE AND COLLAPSE 03/05/2014 LAMONT CHIANG MD Ot 780.52 INSOMNIA, UNSPECIFIED 03/05/2014 LAMONT CHIANG MD Ot 780.79 OTH MALAISE FATIGUE 03/05/2014 LAMONT CHIANG MD Ot 786.2 COUGH 03/05/2014 LAMONT CHIANG MD Ot 786.59 CHEST PAIN NEC 03/05/2014 LAMONT CHIANG MD Ot V13.01 PERSONAL HISTORY OF URINARY CALCULI 03/05/2014 LAMONT CHIANG MD Ot V17.3 FAM HX-ISCHEM HEART DIS 03/05/2014 LAMONT CHIANG MD Ot V58.69 OTH MED,LT,CURRENT USE 03/10/2014 AMISHA RIGGS MD Ot 298.9 PSYCHOSIS NOS 03/10/2014 AMISHA RIGGS MD Ot 300.00 ANXIETY STATE NOS 03/10/2014 AMISHA RIGGS MD Ot 311 DEPRESSIVE DISORDER NEC 03/10/2014 AMISHA RIGGS MD Ot 346.90 MIGRAINE UNSPECIFIED W/O INTRACT MGRN W/ 03/10/2014 AMISHA RIGGS MD Ot 401.9 HYPERTENSION NOS 03/10/2014 AMISHA RIGGS MD Ot 434.91 CEREBRAL ART OCCLUSION NOS W CEREBRAL IN 03/10/2014 AMISHA RIGGS MD Ot 555.9 REGIONAL ENTERITIS NOS 03/10/2014 AMISHA RIGGS MD Ot 715.90 OSTEOARTHROS NOS-UNSPEC 03/10/2014 AMISHA RIGGS MD Ot 780.1 HALLUCINATIONS 03/10/2014 AMISHA RIGGS MD Ot 782.0 SKIN SENSATION DISTURB 03/10/2014 AMISHA RIGGS MD Ot 785.0 TACHYCARDIA NOS 03/10/2014 AMISHA RIGGS MD Ot V12.71 PERSONAL HISTORY OF PEPTIC ULCER DISEASE 03/10/2014 AMISHA RIGGS MD Ot V58.69 OTH MED,LT,CURRENT USE 05/11/2014 AMISHA RIGGS MD Ot 434.91 CEREBRAL ART OCCLUSION NOS W CEREBRAL IN 05/11/2014 AMISHA RIGGS MD Ot V57.1 PHYSICAL THERAPY NEC 05/11/2014 AMISHA RIGGS MD Ot V57.21 ENCOUNTER FOR OCCUPATIONAL THERAPY 12/27/2014 AMISHA RIGGS MD Ot 276.51 DEHYDRATION 12/27/2014 AMISHA RIGGS MD Ot 311 DEPRESSIVE DISORDER NEC 12/27/2014 AMISHA RIGGS MD Ot 338.29 OTHER CHRONIC PAIN 12/27/2014 AMISHA RIGGS MD Ot 365.9 GLAUCOMA NOS 12/27/2014 AMISHA RIGGS MD Ot 401.9 HYPERTENSION NOS 12/27/2014 AMISHA RIGGS MD Ot 437.8 CEREBROVASC DISEASE NEC 12/27/2014 AMISHA RIGGS MD Ot 555.0 REG ENTERITIS, SM INTEST 12/27/2014 AMISHA RIGGS MD Ot 564.00 UNSPEC CONSTIPATION 12/27/2014 AMISHA RIGGS MD Ot 592.0 CALCULUS OF KIDNEY 12/27/2014 AMISHA RIGGS MD Ot 721.0 CERVICAL SPONDYLOSIS 12/27/2014 AMISHA RIGGS MD Ot 780.52 INSOMNIA, UNSPECIFIED 12/27/2014 AMISHA RIGGS MD Ot 787.20 DYSPHAGIA, UNSPECIFIED 12/27/2014 AMISHA RIGGS MD Ot V12.54 PERSONAL HX OF TIA, CEREBRAL INFARCTION 12/27/2014 AMISHA RIGGS MD Ot V12.71 PERSONAL HISTORY OF PEPTIC ULCER DISEASE 01/16/2015 Ot 592.1 01/16/2015 Ot V67.09 01/16/2015 Ot 555.9 01/16/2015 Ot 733.00 01/16/2015 Ot V82.81 01/16/2015 Ot 719.05 01/16/2015 Ot 722.10 01/16/2015 Ot 826.0 01/16/2015 Ot E000.8 01/16/2015 Ot E030 01/16/2015 Ot E849.0 01/16/2015 Ot E928.9 01/16/2015 Ot 555.0 01/16/2015 Ot 565.1 01/16/2015 Ot 592.0 01/16/2015 Ot 555.9 01/16/2015 Ot 566 01/16/2015 Ot 592.0 01/16/2015 Ot 789.09 01/16/2015 AMISHA RIGGS MD Ot 401.9 01/16/2015 AMISHA RIGGS MD Ot 424.0 01/16/2015 AMISHA RIGGS MD Ot 443.9 01/16/2015 AMISHA RIGGS MD Ot 786.50 01/16/2015 AMISHA RIGGS MD Ot 401.1 01/16/2015 ONEIL KEANE, AMISHA Kennedy Ot 555.9 01/16/2015 ONEIL KEANE, AMISHA Kennedy Ot 787.01 01/16/2015 ONEIL KEANE, AMISHA M Ot 729.5 01/16/2015 ONEIL KEANE, AMISHA M Ot 924.20 01/16/2015 ONEIL KEANE, AMISHA Kennedy Ot E928.9 03/16/2015 Ot 555.9 03/16/2015 Ot 733.00 03/16/2015 Ot V82.81 03/16/2015 Ot 719.05 03/16/2015 Ot 722.10 03/16/2015 Ot 826.0 03/16/2015 Ot E000.8 03/16/2015 Ot E030 03/16/2015 Ot E849.0 03/16/2015 Ot E928.9 03/16/2015 Ot 555.0 03/16/2015 Ot 565.1 03/16/2015 Ot 592.0 03/16/2015 Ot 555.9 03/16/2015 Ot 566 03/16/2015 Ot 592.0 03/16/2015 Ot 789.09 03/16/2015 ONEIL KEANE, AMISHA Kennedy Ot 401.9 03/16/2015 ONEIL KEANE, AMISHA M Ot 424.0 03/16/2015 ONEIL KEANE, AMISHA M Ot 443.9 03/16/2015 ONEIL KEANE, AMISHA M Ot 786.50 03/16/2015 ONEIL KEANE, AMISHA M Ot 401.1 03/16/2015 ONEIL KEANE, AMISHA M Ot 555.9 03/16/2015 ONEIL KEANE, AMISHA M Ot 787.01 03/16/2015 ONEIL KEANE, AMISHA M Ot 729.5 03/16/2015 ONEIL KEANE, AMISHA M Ot 924.20 03/16/2015 ONEIL KEANE, AMISHA Kennedy Ot E928.9 03/16/2015 Ot 780.60 04/22/2015 ONEIL KEANE, AMISHA M Ot 719.45 04/22/2015 ONEIL KEANE, AMISHA M Ot 719.46 05/20/2015 ONEIL KEANE, AMISHA Kennedy Ot 719.45 05/20/2015 ONEIL KEANE, AMISHA M Ot 719.46 12/03/2015 Ot 555.9 12/03/2015 Ot 566 12/03/2015 Ot 592.0 12/03/2015 Ot 789.09 12/03/2015 ONEIL KEANE, AMISHA Kennedy Ot 401.9 12/03/2015 ONEIL KEANE, AMISHA M Ot 424.0 12/03/2015 ONEIL KEANE, AMISHA M Ot 443.9 12/03/2015 ONEIL KEANE, AMISHA M Ot 786.50 12/03/2015 ONEIL KEANE, AMISHA M Ot 401.1 12/03/2015 ONEIL KEANE, AMISHA M Ot 555.9 12/03/2015 ONEIL KEANE, AMISHA Kennedy Ot 787.01 12/03/2015 ONEIL KEANE, AMISHA Kennedy Ot 729.5 12/03/2015 ONEIL KEANE, AMISHA M Ot 924.20 12/03/2015 ONEIL KEANE, AMISHA M Ot E928.9 12/03/2015 Ot 780.60 12/03/2015 ONEIL KEANE, AMISHA Kennedy Ot 719.45 12/03/2015 ONEIL KEANE, AMISHA Kennedy Ot 719.46 01/01/2016 MICHELLE KEANE, MELISA Lozano Ot R10.11 01/10/2016 MELISA MARTINEZ MD Ot R10.11 03/13/2016 Ot 555.9 REGIONAL ENTERITIS NOS 03/13/2016 Ot 566 ANAL RECTAL ABSCESS 03/13/2016 Ot 592.0 CALCULUS OF KIDNEY 03/13/2016 Ot 789.09 ABDOMINAL PAIN, OTHER SPECIFIED SITE 03/13/2016 ONEIL KEANE, AMISHA Kennedy Ot 401.9 HYPERTENSION NOS 03/13/2016 ONEIL KEANE, AMISHA Kennedy Ot 424.0 MITRAL VALVE DISORDER 03/13/2016 ONEIL KEANE, AMISHA Kennedy Ot 443.9 PERIPH VASCULAR DIS NOS 03/13/2016 ONEIL KEANE, AMISHA Kennedy Ot 786.50 CHEST PAIN NOS 03/13/2016 AMISHA RIGGS MD Ot 401.1 BENIGN HYPERTENSION 03/13/2016 ONEIL KEANE, AMISHA Kennedy Ot 555.9 REGIONAL ENTERITIS NOS 03/13/2016 ONEIL KEANE, AMISHA Kennedy Ot 787.01 NAUSEA WITH VOMITING 03/13/2016 AMISHA RIGGS MD Ot 729.5 PAIN IN LIMB 03/13/2016 AMISHA RIGGS MD Ot 924.20 CONTUSION OF FOOT 03/13/2016 AMISHA RIGGS MD Ot E928.9 ACCIDENT NOS 03/13/2016 Ot 780.60 FEVER, UNSPECIFIED 03/13/2016 AMISHA RIGGS MD Ot 719.45 JOINT PAIN-PELVIS 03/13/2016 AMISHA RIGGS MD Ot 719.46 JOINT PAIN-L/LEG 03/13/2016 MELISA MARTINEZ MD Ot R10.11 RIGHT UPPER QUADRANT PAIN 03/18/2016 Ot 555.9 REGIONAL ENTERITIS NOS 03/18/2016 Ot 566 ANAL RECTAL ABSCESS 03/18/2016 Ot 592.0 CALCULUS OF KIDNEY 03/18/2016 Ot 789.09 ABDOMINAL PAIN, OTHER SPECIFIED SITE 03/18/2016 AMISHA RIGGS MD Ot 401.9 HYPERTENSION NOS 03/18/2016 AMISHA RIGGS MD Ot 424.0 MITRAL VALVE DISORDER 03/18/2016 AMISHA RIGGS MD Ot 443.9 PERIPH VASCULAR DIS NOS 03/18/2016 AMISHA RIGGS MD Ot 786.50 CHEST PAIN NOS 03/18/2016 AMISHA RIGGS MD Ot 401.1 BENIGN HYPERTENSION 03/18/2016 AMISHA RIGGS MD Ot 555.9 REGIONAL ENTERITIS NOS 03/18/2016 AMISHA RIGGS MD Ot 787.01 NAUSEA WITH VOMITING 03/18/2016 AMISHA RIGGS MD Ot 729.5 PAIN IN LIMB 03/18/2016 AMISHA RIGGS MD Ot 924.20 CONTUSION OF FOOT 03/18/2016 AMISHA RIGGS MD Ot E928.9 ACCIDENT NOS 03/18/2016 Ot 780.60 FEVER, UNSPECIFIED 03/18/2016 AMISHA RIGGS MD Ot 719.45 JOINT PAIN-PELVIS 03/18/2016 AMISHA RIGGS MD Ot 719.46 JOINT PAIN-L/LEG 03/18/2016 MELISA MARTINEZ MD Ot R10.11 RIGHT UPPER QUADRANT PAIN 03/19/2016 ASHLEY ASIF APRN Ot R07.81 PLEURODYNIA 03/19/2016 ASHLEY ASIF APRN Ot R07.81 PLEURODYNIA 03/21/2016 KRIS , CHIRAG Mera Ot E83.42 HYPOMAGNESEMIA 03/21/2016 KRIS , CHIRAG Mera Ot K50.90 CROHN'S DISEASE, UNSPECIFIED, WITHOUT CO 03/22/2016 KRIS DO, HCIRAG Mera Ot E83.42 HYPOMAGNESEMIA 03/22/2016 KRIS DO, CHIRAG Mera Ot K50.90 CROHN'S DISEASE, UNSPECIFIED, WITHOUT CO 03/24/2016 KRIS DO, CHIRAG Mera Ot E83.42 HYPOMAGNESEMIA 03/24/2016 KRIS , CHIRAG Mera Ot K50.90 CROHN'S DISEASE, UNSPECIFIED, WITHOUT CO 03/25/2016 Ot 555.9 REGIONAL ENTERITIS NOS 03/25/2016 Ot 566 ANAL RECTAL ABSCESS 03/25/2016 Ot 592.0 CALCULUS OF KIDNEY 03/25/2016 Ot 789.09 ABDOMINAL PAIN, OTHER SPECIFIED SITE 03/25/2016 AMISHA RIGGS MD Ot 401.9 HYPERTENSION NOS 03/25/2016 AMISHA RIGGS MD Ot 424.0 MITRAL VALVE DISORDER 03/25/2016 AMISHA RGIGS MD Ot 443.9 PERIPH VASCULAR DIS NOS 03/25/2016 AMISHA RIGGS MD Ot 786.50 CHEST PAIN NOS 03/25/2016 AMISHA RIGGS MD Ot 401.1 BENIGN HYPERTENSION 03/25/2016 AMISHA RIGGS MD Ot 555.9 REGIONAL ENTERITIS NOS 03/25/2016 AMISHA RIGGS MD Ot 787.01 NAUSEA WITH VOMITING 03/25/2016 AMISHA RIGGS MD Ot 729.5 PAIN IN LIMB 03/25/2016 AMISHA RIGGS MD Ot 924.20 CONTUSION OF FOOT 03/25/2016 AMISHA RIGGS MD Ot E928.9 ACCIDENT NOS 03/25/2016 Ot 780.60 FEVER, UNSPECIFIED 03/25/2016 AMISHA RIGGS MD Ot 719.45 JOINT PAIN-PELVIS 03/25/2016 AMISHA RIGGS MD Ot 719.46 JOINT PAIN-L/LEG 03/25/2016 MICHELLE KEANE, MELISA Lozano Ot R10.11 RIGHT UPPER QUADRANT PAIN 03/25/2016 ASHLEY ASIF APRN Ot R07.81 PLEURODYNIA 03/28/2016 MELISA MARTINEZ MD Ot K86.1 OTHER CHRONIC PANCREATITIS 04/10/2016 ASHLEY ASIF APRN Ot R07.81 PLEURODYNIA 04/16/2016 MELISA MARTINEZ MD Ot K86.1 OTHER CHRONIC PANCREATITIS 04/17/2016 ASHLEY ASIF APRN Ot R07.81 PLEURODYNIA 07/10/2016 Ot 555.9 REGIONAL ENTERITIS NOS 07/10/2016 Ot 566 ANAL RECTAL ABSCESS 07/10/2016 Ot 592.0 CALCULUS OF KIDNEY 07/10/2016 Ot 789.09 ABDOMINAL PAIN, OTHER SPECIFIED SITE 07/10/2016 AMISHA RIGGS MD Ot 401.9 HYPERTENSION NOS 07/10/2016 AMISHA RIGGS MD Ot 424.0 MITRAL VALVE DISORDER 07/10/2016 AMISHA RIGGS MD Ot 443.9 PERIPH VASCULAR DIS NOS 07/10/2016 AMISHA RIGGS MD Ot 786.50 CHEST PAIN NOS 07/10/2016 AMISHA RIGGS MD Ot 401.1 BENIGN HYPERTENSION 07/10/2016 AMISHA RIGGS MD Ot 555.9 REGIONAL ENTERITIS NOS 07/10/2016 AMISHA RIGGS MD Ot 787.01 NAUSEA WITH VOMITING 07/10/2016 AMISHA RIGGS MD Ot 729.5 PAIN IN LIMB 07/10/2016 AMISHA RIGGS MD Ot 924.20 CONTUSION OF FOOT 07/10/2016 AMISHA RIGGS MD Ot E928.9 ACCIDENT NOS 07/10/2016 Ot 780.60 FEVER, UNSPECIFIED 07/10/2016 AMISHA RIGGS MD Ot 719.45 JOINT PAIN-PELVIS 07/10/2016 AMISHA RIGGS MD Ot 719.46 JOINT PAIN-L/LEG 07/10/2016 MELISA MARTINEZ MD Ot R10.11 RIGHT UPPER QUADRANT PAIN 07/10/2016 ASHLEY ASIF APRN Ot R07.81 PLEURODYNIA 07/10/2016 MELISA MARTINEZ MD Ot K86.1 OTHER CHRONIC PANCREATITIS 07/17/2016 Ot 555.9 REGIONAL ENTERITIS NOS 07/17/2016 Ot 566 ANAL RECTAL ABSCESS 07/17/2016 Ot 592.0 CALCULUS OF KIDNEY 07/17/2016 Ot 789.09 ABDOMINAL PAIN, OTHER SPECIFIED SITE 07/17/2016 AMISHA RIGGS MD Ot 401.9 HYPERTENSION NOS 07/17/2016 AMISHA RIGGS MD Ot 424.0 MITRAL VALVE DISORDER 07/17/2016 AMISHA RIGGS MD Ot 443.9 PERIPH VASCULAR DIS NOS 07/17/2016 AMISHA RIGGS MD Ot 786.50 CHEST PAIN NOS 07/17/2016 AMISHA RIGGS MD Ot 401.1 BENIGN HYPERTENSION 07/17/2016 AMISHA RIGGS MD Ot 555.9 REGIONAL ENTERITIS NOS 07/17/2016 AMISHA RIGGS MD Ot 787.01 NAUSEA WITH VOMITING 07/17/2016 AMISHA RIGGS MD Ot 729.5 PAIN IN LIMB 07/17/2016 AMISHA RIGGS MD Ot 924.20 CONTUSION OF FOOT 07/17/2016 AMISHA RIGGS MD Ot E928.9 ACCIDENT NOS 07/17/2016 Ot 780.60 FEVER, UNSPECIFIED 07/17/2016 AMISHA RIGGS MD Ot 719.45 JOINT PAIN-PELVIS 07/17/2016 AMISHA RIGGS MD Ot 719.46 JOINT PAIN-L/LEG 07/17/2016 MELISA MARTINEZ MD Ot R10.11 RIGHT UPPER QUADRANT PAIN 07/17/2016 ASHLEY ASIF APRN Ot R07.81 PLEURODYNIA 07/17/2016 MELISA MARTINEZ MD Ot K86.1 OTHER CHRONIC PANCREATITIS 07/18/2016 Ot 555.9 REGIONAL ENTERITIS NOS 07/18/2016 Ot 566 ANAL RECTAL ABSCESS 07/18/2016 Ot 592.0 CALCULUS OF KIDNEY 07/18/2016 Ot 789.09 ABDOMINAL PAIN, OTHER SPECIFIED SITE 07/18/2016 AMISHA RIGGS MD Ot 401.9 HYPERTENSION NOS 07/18/2016 AMISHA RIGGS MD Ot 424.0 MITRAL VALVE DISORDER 07/18/2016 AMISHA RIGGS MD Ot 443.9 PERIPH VASCULAR DIS NOS 07/18/2016 AMISHA RIGGS MD Ot 786.50 CHEST PAIN NOS 07/18/2016 AMISHA RIGGS MD Ot 401.1 BENIGN HYPERTENSION 07/18/2016 AMISHA RIGGS MD Ot 555.9 REGIONAL ENTERITIS NOS 07/18/2016 AMISHA RIGGS MD Ot 787.01 NAUSEA WITH VOMITING 07/18/2016 AMISHA RIGGS MD Ot 729.5 PAIN IN LIMB 07/18/2016 AMISHA RIGGS MD Ot 924.20 CONTUSION OF FOOT 07/18/2016 AMISHA RIGGS MD Ot E928.9 ACCIDENT NOS 07/18/2016 Ot 780.60 FEVER, UNSPECIFIED 07/18/2016 AMISHA RIGGS MD Ot 719.45 JOINT PAIN-PELVIS 07/18/2016 AMISHA RIGGS MD Ot 719.46 JOINT PAIN-L/LEG 07/18/2016 MELISA MARTINEZ MD Ot R10.11 RIGHT UPPER QUADRANT PAIN 07/18/2016 ASHLEY ASIF APRN Ot R07.81 PLEURODYNIA 07/18/2016 MELISA MARTINEZ MD Ot K86.1 OTHER CHRONIC PANCREATITIS 07/30/2016 Ot 555.9 REGIONAL ENTERITIS NOS 07/30/2016 Ot 566 ANAL RECTAL ABSCESS 07/30/2016 Ot 592.0 CALCULUS OF KIDNEY 07/30/2016 Ot 789.09 ABDOMINAL PAIN, OTHER SPECIFIED SITE 07/30/2016 AMISHA RIGGS MD Ot 401.9 HYPERTENSION NOS 07/30/2016 AMISHA RIGGS MD Ot 424.0 MITRAL VALVE DISORDER 07/30/2016 AMISHA RIGGS MD Ot 443.9 PERIPH VASCULAR DIS NOS 07/30/2016 AMISHA RIGGS MD Ot 786.50 CHEST PAIN NOS 07/30/2016 AMISHA RIGGS MD Ot 401.1 BENIGN HYPERTENSION 07/30/2016 AMISHA RIGGS MD Ot 555.9 REGIONAL ENTERITIS NOS 07/30/2016 AMISHA RIGGS MD Ot 787.01 NAUSEA WITH VOMITING 07/30/2016 AMISHA RIGGS MD Ot 729.5 PAIN IN LIMB 07/30/2016 AMISHA RIGGS MD Ot 924.20 CONTUSION OF FOOT 07/30/2016 AMISHA RIGGS MD Ot E928.9 ACCIDENT NOS 07/30/2016 Ot 780.60 FEVER, UNSPECIFIED 07/30/2016 AMISHA RIGGS MD Ot 719.45 JOINT PAIN-PELVIS 07/30/2016 AMISHA RIGGS MD Ot 719.46 JOINT PAIN-L/LEG 07/30/2016 MELISA MARTINEZ MD Ot R10.11 RIGHT UPPER QUADRANT PAIN 07/30/2016 ASHLEY ASIF APRN Ot R07.81 PLEURODYNIA 07/30/2016 MELISA MARTINEZ MD Ot K86.1 OTHER CHRONIC PANCREATITIS 12/24/2016 Ot 789.09 ABDOMINAL PAIN, OTHER SPECIFIED SITE 12/24/2016 AMISHA RIGGS MD Ot 401.9 HYPERTENSION NOS 12/24/2016 AMISHA RIGGS MD Ot 424.0 MITRAL VALVE DISORDER 12/24/2016 AMISHA RIGGS MD Ot 443.9 PERIPH VASCULAR DIS NOS 12/24/2016 AMISHA RIGGS MD Ot 786.50 CHEST PAIN NOS 12/24/2016 AMISHA RIGGS MD Ot 401.1 BENIGN HYPERTENSION 12/24/2016 AMISHA RIGGS MD Ot 555.9 REGIONAL ENTERITIS NOS 12/24/2016 AMISHA RIGGS MD Ot 787.01 NAUSEA WITH VOMITING 12/24/2016 AMISHA RIGGS MD Ot 729.5 PAIN IN LIMB 12/24/2016 AMISHA RIGGS MD Ot 924.20 CONTUSION OF FOOT 12/24/2016 AMISHA RIGGS MD Ot E928.9 ACCIDENT NOS 12/24/2016 Ot 780.60 FEVER, UNSPECIFIED 12/24/2016 AMISHA RIGGS MD Ot 719.45 JOINT PAIN-PELVIS 12/24/2016 AMISHA RIGGS MD Ot 719.46 JOINT PAIN-L/LEG 12/24/2016 MELISA MARTINEZ MD Ot R10.11 RIGHT UPPER QUADRANT PAIN 12/24/2016 ASHLEY ASIF APRN Ot R07.81 PLEURODYNIA 12/24/2016 MELISA MARTINEZ MD Ot K86.1 OTHER CHRONIC PANCREATITIS 12/24/2016 ASHLEY ASIF APRN Ot E86.0 DEHYDRATION 12/24/2016 ASHLEY ASIF APRN Ot K50.90 CROHN'S DISEASE, UNSPECIFIED, WITHOUT CO 02/22/2017 YANICK KEANE, RED Lozano Ot F41.9 ANXIETY DISORDER, UNSPECIFIED 02/22/2017 RED HERNDON MD Ot I10 ESSENTIAL (PRIMARY) HYPERTENSION 02/22/2017 RED HERNDON MD Ot M19.90 UNSPECIFIED OSTEOARTHRITIS, UNSPECIFIED 02/22/2017 RED HERNDON MD Ot M25.461 EFFUSION, RIGHT KNEE 02/22/2017 RED HERNDON MD Ot M54.2 CERVICALGIA 02/22/2017 RED HERNDON MD Ot N28.9 DISORDER OF KIDNEY AND URETER, UNSPECIFI 02/22/2017 RED HERNDON MD Ot R41.82 ALTERED MENTAL STATUS, UNSPECIFIED 02/22/2017 RED HERNDON MD Ot T40.2X1A POISONING BY OTH OPIOIDS, ACCIDENTAL ( UN 02/22/2017 RED HERNDON MD Ot T42.6X1A POISONING BY OTH ANTIEPLPTC AND SED- HYPN 02/22/2017 RED HERNDON MD Ot T45.0X1A POISONING BY ANTIALLERG/ANTIEMETIC, ACCI 02/22/2017 RED HERNDON MD Ot F41.9 ANXIETY DISORDER, UNSPECIFIED 02/22/2017 RED HERNDON MD Ot I10 ESSENTIAL (PRIMARY) HYPERTENSION 02/22/2017 RED HERNDON MD Ot M19.90 UNSPECIFIED OSTEOARTHRITIS, UNSPECIFIED 02/22/2017 RED HERNDON MD Ot M25.461 EFFUSION, RIGHT KNEE 02/22/2017 RED HERNDON MD Ot M54.2 CERVICALGIA 02/22/2017 RED HERNDON MD Ot N28.9 DISORDER OF KIDNEY AND URETER, UNSPECIFI 02/22/2017 RED HERNDON MD Ot R41.82 ALTERED MENTAL STATUS, UNSPECIFIED 02/22/2017 RED HERNDON MD Ot T40.2X1A POISONING BY OTH OPIOIDS, ACCIDENTAL ( UN 02/22/2017 RED HERNDON MD Ot T42.6X1A POISONING BY OTH ANTIEPLPTC AND SED- HYPN 02/22/2017 RED HERNDON MD Ot T45.0X1A POISONING BY ANTIALLERG/ANTIEMETIC, ACCI Procedures Code Description Performed By Performed On 56.0 TU REMOV URETER OBSTRUCT 11/26/2012 94.65 DRUG DETOXIFICATION 03/07/2014 Results Test Result Range Bacterial urine culture - 12/24/16 17:25 Bacterial urine culture NG NRG Complete urinalysis with reflex to culture - 12/24/16 17:40 Urine color determination YELLOW NRG Urine clarity determination SLIGHTLY CLOUDY NRG Urine pH measurement by test strip 5 5- 9 Specific gravity of urine by test strip 1.020 1.016-1.022 Urine protein assay by test strip, semi-quantitative 3+ NEGATIVE Urine glucose detection by automated test strip NEGATIVE NEGATIVE Erythrocytes detection in urine sediment by light microscopy 1+ NEGATIVE Urine ketones detection by automated test strip 1+ NEGATIVE Urine nitrite detection by test strip NEGATIVE NEGATIVE Urine total bilirubin detection by test strip NEGATIVE NEGATIVE Urine urobilinogen measurement by automated test strip (mass/volume) NORMAL NORMAL Urine leukocyte esterase detection by dipstick 1+ NEGATIVE Automated urine sediment erythrocyte count by microscopy (number/high power field) [HPF] NRG Automated urine sediment leukocyte count by microscopy (number/high power field ) [HPF] NRG Bacteria detection in urine sediment by light microscopy NONE NRG Crystals detection in urine sediment by light microscopy NONE NRG Casts detection in urine sediment by light microscopy PRESENT NRG Mucus detection in urine sediment by light microscopy MODERATE NRG Complete urinalysis with reflex to culture NO NRG Hyaline casts detection in urine sediment by light microscopy >50 NRG Complete blood count (CBC) with automated white blood cell (WBC) differential - 02/22/17 00:45 Blood leukocytes automated count (number/volume) 7.8 10*3/ uL 4.3-11.0 Blood erythrocytes automated count (number/volume) 3.66 10*6 /uL 4.35-5.85 Venous blood hemoglobin measurement (mass/volume) 11.7 g/dL 13.3-17.7 Blood hematocrit (volume fraction) 35 % 40-54 Automated erythrocyte mean corpuscular volume 95 [foz_us] 80-99 Automated erythrocyte mean corpuscular hemoglobin (mass per erythrocyte) 32 pg 25-34 Automated erythrocyte mean corpuscular hemoglobin concentration measurement ( mass/volume) 34 g/dL 32-36 Automated erythrocyte distribution width ratio 13.1 % 10.0-14.5 Automated blood platelet count (count/volume) 152 10*3/uL 130-400 Automated blood platelet mean volume measurement 10.3 [foz_ us] 7.4-10.4 Automated blood neutrophils/100 leukocytes 64 % 42-75 Automated blood lymphocytes/100 leukocytes 21 % 12-44 Blood monocytes/100 leukocytes 14 % 0-12 Automated blood eosinophils/100 leukocytes 1 % 0-10 Automated blood basophils/100 leukocytes 0 % 0-10 Blood neutrophils automated count (number/volume) 5.0 10*3 1.8-7.8 Blood lymphocytes automated count (number/volume) 1.7 10*3 1.0-4.0 Blood monocytes automated count (number/volume) 1.1 10*3 0.0-1.0 Automated eosinophil count 0.1 10*3/uL 0.0-0.3 Automated blood basophil count (count/volume) 0.0 10*3/uL 0.0-0.1 PT panel in platelet poor plasma by coagulation assay - 02/22/17 00:45 Prothrombin time (PT) in platelet poor plasma by coagulation assay 13.6 s 12.2-14.7 INR in platelet poor plasma or blood by coagulation assay 1.1 0.8-1.4 Activated partial thromboplastin time (aPTT) in platelet poor plasma bycoagulation assay - 02/22/17 00:45 Activated partial thromboplastin time (aPTT) in platelet poor plasma bycoagulation assay 29 s 24-35 Fibrin D-dimer FEU measurement in platelet poor plasma (mass/volume) - 00:45 Fibrin D-dimer FEU measurement in platelet poor plasma (mass/volume) 1.09 ug/mL 0.00-0.49 Comprehensive metabolic panel - 02/22/17 00:45 Serum or plasma sodium measurement (moles/volume) 139 mmol/ L 135-145 Serum or plasma potassium measurement (moles/volume) 4.0 mmol/L 3.6-5.0 Serum or plasma chloride measurement (moles/volume) 109 mmol /L 98-107 Carbon dioxide 21 mmol/L 21-32 Serum or plasma anion gap determination (moles/volume) 9 mmol/L 5-14 Serum or plasma urea nitrogen measurement (mass/volume) 22 mg/dL 7-18 Serum or plasma creatinine measurement (mass/volume) 1.58 mg /dL 0.60-1.30 Serum or plasma urea nitrogen/creatinine mass ratio 14 NRG Serum or plasma creatinine measurement with calculation of estimated glomerular filtration rate 44 NRG Serum or plasma glucose measurement (mass/volume) 111 mg/dL 70-105 Serum or plasma calcium measurement (mass/volume) 8.4 mg/dL 8.5-10.1 Serum or plasma total bilirubin measurement (mass/volume) 0.6 mg/dL 0.1-1.0 Serum or plasma alkaline phosphatase measurement (enzymatic activity/volume) 96 U/L 40-136 Serum or plasma aspartate aminotransferase measurement (enzymatic activity/ volume) 45 U/L 5-34 Serum or plasma alanine aminotransferase measurement (enzymatic activity/volume ) 42 U/L 0-55 Serum or plasma protein measurement (mass/volume) 6.2 g/dL 6.4-8.2 Serum or plasma albumin measurement (mass/volume) 3.3 g/dL 3.2-4.5 Serum or plasma troponin i.cardiac measurement (mass/volume) - 02/22/17 00:45 Serum or plasma troponin i.cardiac measurement (mass/volume) < ng/mL <0.30 Methicillin resistant Staphylococcus aureus (MRSA) screening culture - 03:00 Methicillin resistant Staphylococcus aureus (MRSA) screening culture NEG NR Complete blood count (CBC) with automated white blood cell (WBC) differential - 02/22/17 06:14 Blood leukocytes automated count (number/volume) 6.5 10*3/ uL 4.3-11.0 Blood erythrocytes automated count (number/volume) 2.95 10*6 /uL 4.35-5.85 Venous blood hemoglobin measurement (mass/volume) 9.3 g/dL 13.3-17.7 Blood hematocrit (volume fraction) 28 % 40-54 Automated erythrocyte mean corpuscular volume 96 [foz_us] 80-99 Automated erythrocyte mean corpuscular hemoglobin (mass per erythrocyte) 32 pg 25-34 Automated erythrocyte mean corpuscular hemoglobin concentration measurement ( mass/volume) 33 g/dL 32-36 Automated erythrocyte distribution width ratio 12.9 % 10.0-14.5 Automated blood platelet count (count/volume) 120 10*3/uL 130-400 Automated blood platelet mean volume measurement 10.3 [foz_ us] 7.4-10.4 Automated blood neutrophils/100 leukocytes 76 % 42-75 Automated blood lymphocytes/100 leukocytes 15 % 12-44 Blood monocytes/100 leukocytes 9 % 0-12 Automated blood eosinophils/100 leukocytes 0 % 0-10 Automated blood basophils/100 leukocytes 0 % 0-10 Blood neutrophils automated count (number/volume) 4.9 10*3 1.8-7.8 Blood lymphocytes automated count (number/volume) 0.9 10*3 1.0-4.0 Blood monocytes automated count (number/volume) 0.6 10*3 0.0-1.0 Automated eosinophil count 0.0 10*3/uL 0.0-0.3 Automated blood basophil count (count/volume) 0.0 10*3/uL 0.0-0.1 Comprehensive metabolic panel - 02/22/17 06:14 Serum or plasma sodium measurement (moles/volume) 140 mmol/ L 135-145 Serum or plasma potassium measurement (moles/volume) 3.4 mmol/L 3.6-5.0 Serum or plasma chloride measurement (moles/volume) 117 mmol /L 98-107 Carbon dioxide 17 mmol/L 21-32 Serum or plasma anion gap determination (moles/volume) 6 mmol/L 5-14 Serum or plasma urea nitrogen measurement (mass/volume) 15 mg/dL 7-18 Serum or plasma creatinine measurement (mass/volume) 0.98 mg /dL 0.60-1.30 Serum or plasma urea nitrogen/creatinine mass ratio 15 NRG Serum or plasma creatinine measurement with calculation of estimated glomerular filtration rate > NRG Serum or plasma glucose measurement (mass/volume) 113 mg/dL 70-105 Serum or plasma calcium measurement (mass/volume) 6.7 mg/dL 8.5-10.1 Serum or plasma total bilirubin measurement (mass/volume) 0.5 mg/dL 0.1-1.0 Serum or plasma alkaline phosphatase measurement (enzymatic activity/volume) 72 U/L 40-136 Serum or plasma aspartate aminotransferase measurement (enzymatic activity/ volume) 31 U/L 5-34 Serum or plasma alanine aminotransferase measurement (enzymatic activity/volume ) 29 U/L 0-55 Serum or plasma protein measurement (mass/volume) 4.6 g/dL 6.4-8.2 Serum or plasma albumin measurement (mass/volume) 2.4 g/dL 3.2-4.5 Serum or plasma phosphate measurement (mass/volume) - 02/22/17 06:14 Serum or plasma phosphate measurement (mass/volume) 1.9 mg/ dL 2.3-4.7 Magnesium - 02/22/17 06:14 Magnesium 1.5 mg/dL 1.8-2.4 Encounters ACCT No. Visit Date/Time Discharge Status Pt. Type Provider Facility Loc./Unit Complaint [id number] 02/22/2017 02:02:00 2016 14:15:00 DIS Outpatient RED HERNDON MD [facility] ICU NARCOTIC OVERDOSE,AMS [id number] 12/24/2016 16:57:00 2016 19:15:00 DIS Outpatient ASHLEY ASIF APRN [facility] SDC CROHN'S FLARE, DEHYDRATION,ABD PAIN [id number] 03/21/2016 18:15:00 2015 22:17:00 DIS Emergency KRIS DO, CHIRAG K [facility] ER CP,SOA [id number] 03/21/2016 18:03:00 2015 18:03:00 CAN Preadmit ASHLEY ASIF APRN [facility] RT [id number] 03/21/2016 11:45:00 2015 11:45:00 CAN Sinamit ASHLEY ASIF APRN [facility] RAD RT LOWER GROIN PAIN [id number] 03/16/2015 12:18:00 2014 23:59:59 CLS Outpatient AMISHA RIGGS MD [facility] RAD RT HIP AND KNEE PAIN [id number] 12/25/2014 12:22:00 2014 14:10:00 DIS Inpatient AMISHA RIGGS MD [facility] CSD TRANSIENT ISCHEMIC ATTACK, HYPERTENSION [id number] 06/29/2014 15:39:00 2013 23:59:59 CLS Outpatient AMISHA RIGGS MD [facility] RAD FOOT PAIN [id number] 04/14/2014 12:53:00 2013 10:07:00 DIS Outpatient AMISHA RIGGS MD [facility] REHAB CVA [id number] 03/16/2014 12:12:00 2013 23:59:59 CLS Outpatient AMISHA RIGGS MD [facility] LAB CHRON'S DISEASE,N/A [id number] 03/07/2014 16:04:00 2013 14:05:00 DIS Inpatient AMISHA RIGGS MD [facility] 4TH MENTAL STATUS CHANGES [id number] 03/04/2014 08:20:00 2013 12:50:00 DIS Outpatient LAMONT CHIANG MD [facility] CATH CHEST PAIN [id number] 11/23/2013 06:50:00 2012 23:59:59 CLS Outpatient AMISHA RIGGS MD [facility] RAD CP [id number] 11/04/2013 12:37:00 2012 23:59:59 CLS Outpatient AMISHA RIGGS MD [facility] CARD HTN [id number] 03/27/2016 16:59:00 ACT Outpatient MELISA MARTINEZ MD [facility] LAB chronic pancreatitis [id number] 03/18/2016 18:46:00 ACT Outpatient ASHLEY ASIF APRN [facility] RAD STERNAL PAIN PLEURITIC CHEST PAIN [id number] 12/01/2015 06:24:00 ACT Outpatient MELISA MARTINEZ MD [facility] RAD RIGHT UPPER QUAD PAIN [id number] 03/16/2015 12:19:00 Document Registration [id number] 03/16/2015 12:19:00 Document Registration [id number] 01/16/2015 15:45:00 Document Registration [id number] 01/16/2015 15:45:00 Document Registration [id number] 01/16/2015 15:45:00 Document Registration [id number] 11/25/2012 23:30:00 Document Registration [id number] 03/06/2012 13:42:00 Document Registration [id number] 01/24/2012 11:17:00 Document Registration [id number] 12/31/2011 14:20:00 Document Registration [id number] 10/24/2011 13:58:00 Document Registration [id number] 10/18/2011 22:15:00 Document Registration [id number] 07/01/2011 00:00:00 Document Registration [id number] 05/14/2011 18:18:00 Document Registration [id number] 04/01/2011 09:40:00 Document Registration [id number] 04/01/2011 09:33:00 Document Registration [id number] 05/24/2010 10:20:00 Document Registration [id number] 05/17/2010 14:11:00 Document Registration [id number] 05/02/2010 11:51:00 Document Registration [id number] 02/16/2010 13:40:00 Document Registration [id number] 09/15/2009 13:51:00 Document Registration [id number] 08/10/2009 14:38:00 Document Registration
--- OUTSIDE RECORDS SUMMARY | 2017-03-18 09:11 | XMS REPORT | Continuity of Care Document ---
Author Author [facility] Organization [facility] Address Unknown Phone Unavailable Allergies Active Description Code Type Severity Reaction Onset Reported/Identified Relationship to Patient Clinical Status Yes adalimumab [id number] Drug Allergy Unknown N/A 03/07/2014 Yes aspirin [id number] Drug Allergy Unknown N/A 03/07/2014 Yes infliximab [id number] Drug Allergy Unknown NEAR 03/07/2014 Yes metoclopramide [id number] Drug Allergy Unknown N/A 03/07/2014 Yes meloxicam [id number] Drug Allergy Unknown N/A 12/24/2016 Medications Problems [...] V13.01 PERSONAL HISTORY OF URINARY CALCULI 03/05/2014 ALMONT CHIANG MD Ot V17.3 FAM HX-[facility] HEART [...] ONEIL KEANE, AMISHA M Ot 555.9 03/16/2015 ONELI KEANE, AMISHA M Ot 787.01 03/16/2015 ONEIL KEANE, AMISHA M Ot 729.5 03/16/2015 ONEIL KEANE, AMISHA M Ot 924.20 03/16/2015 ONEIL KEANE, AMISHA Kennedy Ot E928.9 03/16/2015 Ot 780.60 04/22/2015 ONIEL KEANE, AMISHA M Ot 719.45 04/22/2015 ONEIL KEANE, AMISHA M Ot 719.46 05/20/2015 ONEIL KEANE, AMISHA Kennedy Ot 719.45 05/20/2015 ONEIL KEANE, AMISHA M Ot 719.46 12/03/2015 Ot 555.9 12/03/2015 Ot 566 12/03/2015 Ot 592.0 12/03/2015 Ot 789.09 12/03/2015 ONEIL KEANE, AMISHA Kennedy Ot 401.9 12/03/2015 ONEIL KEANE, AMISHA M Ot 424.0 12/03/2015 ONEIL KENAE, AMISHA M Ot 443.9 12/03/2015 ONEIL KEANE, [...] DISEASE, UNSPECIFIED, WITHOUT CO 03/22/2016 KRIS DO, CHIRAG Mera Ot E83.42 HYPOMAGNESEMIA 03/22/2016 KRIS DO, CHIRAG Mera Ot K50.90 CROHN'S DISEASE, UNSPECIFIED, WITHOUT CO 03/24/2016 KIRS DO, CHIRAG Mera Ot E83.42 HYPOMAGNESEMIA 03/24/2016 KRIS , CHIRAG Mera Ot K50.90 CROHN'S DISEASE, UNSPECIFIED, WITHOUT CO 03/25/2016 Ot 555.9 REGIONAL ENTERITIS NOS 03/25/2016 Ot 566 ANAL RECTAL ABSCESS 03/25/2016 Ot 592.0 CALCULUS OF KIDNEY 03/25/2016 Ot 789.09 ABDOMINAL PAIN, OTHER SPECIFIED SITE 03/25/2016 AMISHA RIGGS MD Ot 401.9 HYPERTENSION NOS 03/25/2016 AMISHA RIGGS MD Ot 424.0 MITRAL VALVE DISORDER 03/25/2016 AMISHA RIGGS MD Ot 443.9 PERIPH VASCULAR [...] Ot 555.9 REGIONAL ENTERITIS NOS 07/30/2016 AMISHA IRGGS MD Ot 787.01 NAUSEA WITH VOMITING 07/30/2016 [...] Status Pt. Type Provider Facility Loc./Unit Complaint [id number] 02/22/2017 02:02:00 2016 14:15:00 DIS Outpatient RED HERNDON MD [facility] ICU NARCOTIC OVERDOSE,AMS [id number] 12/24/2016 16:57:00 2016 19:15:00 DIS Outpatient ASHLEY ASIF APRN [facility] SDC CROHN'S FLARE, DEHYDRATION,ABD PAIN [id number] 03/21/2016 18:15:00 2015 22:17:00 DIS Emergency KRIS DO, CHIRAG K [facility] ER CP,SOA [id number] 03/21/2016 18:03:00 2015 18:03:00 CAN Preadmit ASHLEY ASIF APRN [facility] RT [id number] 03/21/2016 11:45:00 2015 11:45:00 CAN Sinamit ASHLEY ASIF APRN [facility] RAD RT LOWER GROIN PAIN [id number] 03/16/2015 12:18:00 2014 23:59:59 CLS Outpatient AMISHA RIGGS MD [facility] RAD RT HIP AND KNEE PAIN [id number] 12/25/2014 12:22:00 2014 14:10:00 DIS Inpatient AMISHA RIGGS MD [facility] CSD TRANSIENT ISCHEMIC ATTACK, HYPERTENSION [id number] 06/29/2014 15:39:00 2013 23:59:59 CLS Outpatient AMISHA RIGGS MD [facility] RAD FOOT PAIN [id number] 04/14/2014 12:53:00 2013 10:07:00 DIS Outpatient AMISHA RIGGS MD [facility] REHAB CVA [id number] 03/16/2014 12:12:00 2013 23:59:59 CLS Outpatient AMISHA RIGGS MD [facility] LAB CHRON'S DISEASE,N/A [id number] 03/07/2014 16:04:00 2013 14:05:00 DIS Inpatient AMISHA RIGGS MD [facility] 4TH MENTAL STATUS CHANGES [id number] 03/04/2014 08:20:00 2013 12:50:00 DIS Outpatient LAMONT CHIANG MD [facility] CATH CHEST PAIN [id number] 11/23/2013 06:50:00 2012 23:59:59 CLS Outpatient AMISHA RIGGS MD [facility] RAD CP [id number] 11/04/2013 12:37:00 2012 23:59:59 CLS Outpatient AMISHA RIGGS MD [facility] CARD HTN [id number] 03/27/2016 16:59:00 ACT Outpatient MELISA MARTINEZ MD [facility] LAB chronic pancreatitis [id number] 03/18/2016 18:46:00 ACT Outpatient ASHLEY ASIF APRN [facility] RAD STERNAL PAIN PLEURITIC CHEST PAIN [id number] 12/01/2015 06:24:00 ACT Outpatient MELISA MARTINEZ MD [facility] RAD RIGHT UPPER QUAD PAIN [id number] 03/16/2015 12:19:00 Document Registration [id number] 03/16/2015 12:19:00 Document Registration [id number] 01/16/2015 15:45:00 Document Registration [id number] 01/16/2015 15:45:00 Document Registration [id number] 01/16/2015 15:45:00 Document Registration [id number] 11/25/2012 23:30:00 Document Registration [id number] 03/06/2012 13:42:00 Document Registration [id number] 01/24/2012 11:17:00 Document Registration [id number] 12/31/2011 14:20:00 Document Registration [id number] 10/24/2011 13:58:00 Document Registration [id number] 10/18/2011 22:15:00 Document Registration [id number] 07/01/2011 00:00:00 Document Registration [id number] 05/14/2011 18:18:00 Document Registration [id number] 04/01/2011 09:40:00 Document Registration [id number] 04/01/2011 09:33:00 Document Registration [id number] 05/24/2010 10:20:00 Document Registration [id number] 05/17/2010 14:11:00 Document Registration [id number] 05/02/2010 11:51:00 Document Registration [id number] 02/16/2010 13:40:00 Document Registration [id number] 09/15/2009 13:51:00 Document Registration [id number] 08/10/2009 14:38:00 Document Registration
== END 2017-02-22 11:10 | disposition home or self-care (01) ==
LOC: DELPENDDIS → EDUNIT# 00:36 → ER 00:38 → ICU 02:02 → UNDOADMOB 02:02 → ICU 02:35 → UNDODISOB 13:05
PROVIDERS: ADMIT Family Medicine; ATTEND Family Medicine
DX: T40.2X1A Poisoning by other opioids, accidental (unintentional), initial encounter (principal); T45.0X1A Poisoning by antiallergic and antiemetic drugs, accidental (unintentional), initial encounter; T42.6X1A Poisoning by other antiepileptic and sedative-hypnotic drugs, accidental (unintentional), initial encounter; R41.82 Altered mental status, unspecified; M54.2 Cervicalgia; M25.461 Effusion, right knee; F41.9 Anxiety disorder, unspecified; I10 Essential (primary) hypertension; N28.9 Disorder of kidney and ureter, unspecified; M19.90 Unspecified osteoarthritis, unspecified site
CPT/HCPCS: 36415; 70450; 71010; 80053; 83735; 84100; 84484; 85025; 85379; 85610; 85730; 87081; 93005; 93041; 96361; 96374; G0378

== ENCOUNTER → 2017-06-10 | Outpatient (CLI) | payer MEDICARE, BC ==
[~2017-06-10] MED LIST changes: +ALPR0.5T7 PO; +CATHETER FLUSH 10 ML SYR IV PRN; +CNC1KV; +CYCL5TAB PO; +IOHEXOL 350 MG/ML 100 ML (OMNIPAQUE 350) VIAL IV ONE; +NS 100 ML (IVPB) BAG IV ONE; +OXYC30TA77 PO
[2017-06-10 12:24] LABS: ALBUMIN 3.3 GM/DL (3.2-4.5); BILIRUBIN,TOTAL 1.1 MG/DL (0.1-1.0); CALCIUM 8.8 MG/DL (8.5-10.1); CREATININE SERUM 1.59 MG/DL (0.60-1.30); POTASSIUM 4.8 MMOL/L (3.6-5.0); TOTAL PROTEIN 6.5 GM/DL (6.4-8.2)
--- NOTE | 2017-06-10 14:25 | Diagnostic Imaging Report ---
PROCEDURE: CT abdomen with contrast only. TECHNIQUE: Multiple contiguous axial images were obtained through the abdomen after the administration of intravenous contrast. INDICATION: Right lower quadrant pain. 100 mL of Omnipaque 350 is administered intravenously. FINDINGS: There is minimal atelectasis or scarring in the right lung base anteriorly. There are surgical clips around the GE junction. Correlate with surgical history. Cholecystectomy clips are also seen. There is mild intra- and extra-hepatic biliary dilatation, not significantly changed from 03/21/2016 exam with no definite obstructive lesion identified. The pancreatic duct is not dilated. The pancreatic parenchyma appears unremarkable. The spleen is not enlarged. The adrenals appear unremarkable. The kidneys have symmetric enhancement and contrast excretion. There is no hydronephrosis. The left kidney has numerous simple-appearing cysts replacing most of its parenchyma in the upper pole and involving parts of the mid and lower aspects. No solid component is identified. The findings are also similar to February 2016 exam. The abdominal aorta is normal in caliber. No significantly enlarged para-aortic lymph nodes are seen. The osseous structures demonstrate fusion of the right the SI joints. No ascites or fluid collection in the abdomen is seen. Please note that the cecum appears to project into the pelvis, not imaged on this CT abdomen, and the appendix is probably in the pelvis as well. IMPRESSION: 1. Numerous simple-appearing cysts seen in the left kidney replacing a significant portion of the left renal parenchyma, without significant change from 2016. 2. Stable mild biliary dilatation with no obstructive mass identified. Dictated by: Dictated on workstation # [id number]
== END ==
LOC: RAD 11:46
PROVIDERS: ATTEND Nurse Practitioner Family
DX: N28.1 Cyst of kidney, acquired (principal)
CPT/HCPCS: 36415; 74160; 80053

== ENCOUNTER → 2017-12-17 | Outpatient (CLI) | payer MEDICARE, BC ==
[~2017-12-17] MED LIST changes: -CATHETER FLUSH 10 ML SYR IV PRN; -IOHEXOL 350 MG/ML 100 ML (OMNIPAQUE 350) VIAL IV ONE; -NS 100 ML (IVPB) BAG IV ONE
--- NOTE | 2017-12-17 19:12 | Diagnostic Imaging Report ---
INDICATION: Abdominal pain, history of Crohn's disease. KUB obtained at 4:38 p.m. FINDINGS: There is moderate gaseous distention of colon without significant small bowel dilatation. There is a surgical anastomosis in the right lower quadrant. There are surgical clips over the right upper quadrant as well as near the GE junction. IMPRESSION: Nonspecific bowel gas pattern with mild gaseous distention of the colon and no significant small bowel gas. There is a surgical anastomosis in the right lower quadrant. There are no suspicious calcifications. Dictated by: Dictated on workstation # [id number]
== END ==
LOC: RAD 16:04
PROVIDERS: ATTEND Nurse Practitioner Family
DX: R10.9 Unspecified abdominal pain (principal); Z98.0 Intestinal bypass and anastomosis status; Z87.19 Personal history of other diseases of the digestive system
CPT/HCPCS: 74018

== ENCOUNTER 2018-03-12 14:10 | Outpatient (CLI) | payer MEDICARE, BC | END 2018-03-12 14:30 | disposition home or self-care (01) | LOC: SLEEP 14:10 | PROVIDERS: ATTEND Nurse Practitioner Family | DX: G47.33 Obstructive sleep apnea (adult) (pediatric) (principal); G47.10 Hypersomnia, unspecified; R06.83 Snoring; I10 Essential (primary) hypertension; Z86.73 Personal history of transient ischemic attack (TIA), and cerebral infarction without residual deficits; E53.8 Deficiency of other specified B group vitamins ==

== ENCOUNTER → 2018-05-26 | Outpatient (CLI) | payer MEDICARE, BC ==
[2018-05-26 11:08] LABS: BUN/CREATININE RATIO 21; CALCIUM 8.6 MG/DL (8.5-10.1); CARBON DIOXIDE 21 MMOL/L (21-32); CHLORIDE 112 MMOL/L (98-107); CREATININE SERUM 1.14 MG/DL (0.60-1.30); GFR ESTIMATED > 60; GLUCOSE 117 MG/DL (70-105); POTASSIUM 3.8 MMOL/L (3.6-5.0); SODIUM 142 MMOL/L (135-145)
== END ==
LOC: LAB 10:22
PROVIDERS: ATTEND Nurse Practitioner
DX: L89.812 Pressure ulcer of head, stage 2 (principal)
CPT/HCPCS: 36415; 80048

== ENCOUNTER → 2018-05-26 | Outpatient (CLI) | payer MEDICARE, BC | LOC: WOUNDCARE 08:37 | PROVIDERS: ATTEND Nurse Practitioner | DX: L89.812 Pressure ulcer of head, stage 2 (principal) | CPT/HCPCS: 11042 ==

== ENCOUNTER → 2018-06-02 | Outpatient (CLI) | payer MEDICARE, BC | LOC: WOUNDCARE 10:09 | PROVIDERS: ATTEND Nurse Practitioner | DX: L89.812 Pressure ulcer of head, stage 2 (principal) | CPT/HCPCS: 99212 ==

== ENCOUNTER 2018-07-29 14:50 | Outpatient (CLI) | payer MEDICARE, BC | END 2018-07-29 15:15 | disposition home or self-care (01) | LOC: SLEEP 14:50 | PROVIDERS: ATTEND Nurse Practitioner Family | DX: G47.33 Obstructive sleep apnea (adult) (pediatric) (principal) ==

== ENCOUNTER 2020-10-26 16:37 | Emergency (ER) | payer MEDICARE, BC ==
[~2020-10-26] VITALS: Ht 180.3 cm; Wt 68.1 kg
[2020-10-26] MEDS ORDERED: fentaNYL INJECTION 100 MCG/2 ML AMP IVP ONE (16:45)
--- NOTE | 2020-10-26 16:47 | ED GI ---
General Stated Complaint: PELVIC PAIN Source of Information: Patient Exam Limitations: No Limitations History of Present Illness Date Seen by Provider: Oct 26, 2020 Time Seen by Provider: 16:45 Initial Comments To ER by EMS with reports of suprapubic/pelvic pain. He had a prostate biopsy by Dr. Castillo 2 days ago. His fell earlier today and while helping her up he exacerbated his pelvic pain. He is not on anticoagulation. EMS did note tachycardia with a heart rate of about 140. Patient states that he has a lifelong history of tachycardia, is on medication for it and has been forbidden to play football even as early as his high school years because of the tachycardia. He states that his typical rate is around 100. Timing/Duration: 1-3 Hours Severity/Quality: Moderate, Severe Location: Suprapubic Radiation: No Radiation Activities at Onset: None Associated Symptoms: Denies Symptoms Allergies and Home Medications Allergies Coded Allergies: adalimumab (Verified Allergy, Unknown, 03/07/14) infliximab (Verified Allergy, Unknown, NEAR , 03/07/14) meloxicam (Unverified Allergy, Unknown, 12/24/16) metoclopramide (Verified Allergy, Unknown, 03/07/14) aspirin (Verified Adverse Reaction, Unknown, 03/07/14) Was told by his physician not to take it due to his Crohn's disease. Home Medications Alprazolam 0.5 Mg Tablet, 1 TAB PO TID, (Reported) Bimatoprost 2.5 Ml Drops, 1 DROP OS HS, (Reported) Brimonidine Tartrate 10 Ml Drops, 1 DROP OS BID, (Reported) Cholecalciferol 1,000 Unit Capsule, 1,000 UNIT PO DAILY, (Reported) Cyanocobalamin 1,000 Mcg/Ml Vial, 1,000 MCG INJ MONTHLY , (Reported) Cyclobenzaprine HCl 5 Mg Tablet, 5 MG PO BID PRN for MUSCLE SPASMS Prescribed by: RED HERNDON on 02/22/17 1109 Folic Acid 1 Mg Tablet, 2 MG PO DAILY, (Reported) TAKES 2 (1MG) TABLETS Folic Acid/Mv,Fe,Other Min 1 Each Tablet, 1 TAB PO DAILY, (Reported) Hydrocodone Bit/Acetaminophen 1 Each Tablet, 1-2 EACH PO Q6H PRN for PAIN, (Reported) Hyoscyamine Sulfate 0.125 Mg Tab.subl, 1-2 TAB SL Q4H Prescribed by: CHIRAG PONCE on 03/21/162149 Lorazepam 0.5 Mg Tablet, 0.5 MG PO Q8H PRN for ANXIETY, (Reported) Olmesartan Medoxomil 20 Mg Tablet, 40 MG PO DAILY, (Reported) Omeprazole 20 Mg Tablet.dr, 20 MG PO DAILY, (Reported) Ondansetron 4 Mg Tab.rapdis, 4 MG PO Q4H Prescribed by: CHIRAG PONCE on 03/21/162149 Oxycodone HCl 30 Mg Tab.er.12h, 1 TAB PO BID, (Reported) Prednisone 20 Mg Tablet, 20 MG PO DAILY Prescribed by: AMISHA RIGGS on 12/27/14711 Sertraline Hcl 50 Mg Tablet, 50 MG PO DAILY, (Reported) Verapamil Hcl 240 Mg Tablet.sa, 240 MG PO DAILY, (Reported) [Terazosin Hcl] 2 MG CAP, 2 MG PO HS Prescribed by: AMISHA RIGGS on 12/27/14711 Patient Home Medication List Home Medication List Reviewed: Yes Review of Systems Review of Systems Constitutional: see HPI EENTM: No Symptoms Reported Respiratory: No Symptoms Reported Cardiovascular: No Symptoms Reported Gastrointestinal: See HPI, Abdominal Pain Genitourinary: See HPI Musculoskeletal: no symptoms reported Skin: no symptoms reported Psychiatric/Neurological: No Symptoms Reported Endocrine: No Symptoms Reported Hematologic/Lymphatic: No Symptoms Reported Past Gjvmlrg-Itmqpy-Hgzixs Hx Patient Social History Recent Hopitalizations: No Immunizations Up To Date Tetanus Booster (TDap): Unknown Date of Pneumonia Vaccine: Nov 26, 2009 Date of Influenza Vaccine: Aug 24, 2016 Seasonal Allergies Seasonal Allergies: No Past Medical History Surgeries: Yes (HEART CATH, 2015, ESWL AND STONEBASKETING, L KNEE SCOPE X2 ) Abdominal, Eye Surgery, Gallbladder Respiratory: No Cardiac: Yes Hypertension Neurological: Yes (STROKE LAST 12/2014) Stroke, TIA Reproductive Disorders: No Sexually Transmitted Disease: No Genitourinary: Yes Kidney Stones Gastrointestinal: Yes (HEARTBURN) Gastroesophageal Reflux, Crohns Disease, Ulcer Musculoskeletal: Yes Arthritis 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) HEENT: Yes Cataract, Glaucoma Loss of Vision: Denies Hearing Impairment: Denies Cancer: No Psychosocial: Yes Sleep Difficulties, Anxiety Integumentary: No Blood Disorders: No Adverse Reaction/Blood Tranf: No Family Medical History Family history: Cardiovascular disease 03 FATHER 03 MOTHER 09 BROTHER 09 BROTHER 09 BROTHER 09 BROTHER Family history: Coronary thrombosis 09 BROTHER 09 BROTHER 09 BROTHER 09 BROTHER Family history: Diabetes mellitus 03 FATHER Family history: Hypertension 09 SISTER History of - respiratory disease 03 MOTHER Myocardial infarction 09 BROTHER 09 BROTHER 09 BROTHER 09 BROTHER Heart Disease, COPD, Diabetes, Hypertension Physical Exam Vital Signs Vital Signs - First Documented 10/26/20 16:37 Temp 35.7 Pulse 120 Resp 18 B/P (MAP) 163/100 (121) Pulse Ox 95 O2 Delivery Room Air Capillary Refill : Height/Weight/BMI Height: 5'10.00" Weight: 152lbs. 8.0oz. [id number]; 21.9 BMI Method:Estimated General Appearance: WD/WN, no apparent distress, other (Alert and oriented very pleasant) Neck: non-tender, full range of motion Respiratory: no respiratory distress, no accessory muscle use Cardiovascular: regular rate, rhythm, no murmur Gastrointestinal: normal bowel sounds, non tender, tenderness (Suprapubic. Also reports a history of Crohn's disease.) Neurologic/Psychiatric: alert, normal mood/affect, oriented x 3 Skin: normal color, warm/dry Progress/Results/Core Measures Results/Orders Lab Results Laboratory Tests Test 10/26/20 16:46 10/26/20 17:09 Range/Units White Blood Count 6.9 4.3-11.0 10^3/uL Red Blood Count 4.04 L 4.30-5.52 10^6/uL Hemoglobin 12.3 L 13.3-17.7 g/dL Hematocrit 39 L 40-54 % Mean Corpuscular Volume 97 80-99 fL Mean Corpuscular Hemoglobin 30 25-34 pg Mean Corpuscular Hemoglobin Concent 32 32-36 g/dL Red Cell Distribution Width 13.0 10.0-14.5 % Platelet Count 199 130-400 10^3/uL Mean Platelet Volume 10.0 9.0-12.2 fL Immature Granulocyte % (Auto) 0 % Neutrophils (%) (Auto) 72 42-75 % Lymphocytes (%) (Auto) 19 12-44 % Monocytes (%) (Auto) 8 0-12 % Eosinophils (%) (Auto) 0 0-10 % Basophils (%) (Auto) 0 0-10 % Neutrophils # (Auto) 5.0 1.8-7.8 10^3/uL Lymphocytes # (Auto) 1.3 1.0-4.0 10^3/uL Monocytes # (Auto) 0.6 0.0-1.0 10^3/uL Eosinophils # (Auto) 0.0 0.0-0.3 10^3/uL Basophils # (Auto) 0.0 0.0-0.1 10^3/uL Immature Granulocyte # (Auto) 0.0 0.0-0.1 10^3/uL Sodium Level 139 135-145 MMOL/L Potassium Level 3.9 3.6-5.0 MMOL/L Chloride Level 105 98-107 MMOL/L Carbon Dioxide Level 21 21-32 MMOL/L Anion Gap 13 5-14 MMOL/L Blood Urea Nitrogen 17 7-18 MG/DL Creatinine 1.44 H 0.60-1.30 MG/DL Estimat Glomerular Filtration Rate 49 BUN/Creatinine Ratio 12 Glucose Level 135 H 70-105 MG/DL Calcium Level 8.6 8.5-10.1 MG/DL Corrected Calcium 8.6 8.5-10.1 MG/DL Total Bilirubin 0.5 0.1-1.0 MG/DL Aspartate Amino Transf (AST/SGOT) 23 5-34 U/L Alanine Aminotransferase (ALT/SGPT) 26 0-55 U/L Alkaline Phosphatase 89 40-136 U/L Total Protein 7.3 6.4-8.2 GM/DL Albumin 4.0 3.2-4.5 GM/DL Urine Color YELLOW Urine Clarity CLEAR Urine pH 6.0 5-9 Urine Specific [place] <=1.005 1.016-1.022 Urine Protein NEGATIVE NEGATIVE Urine Glucose (UA) NEGATIVE NEGATIVE Urine Ketones NEGATIVE NEGATIVE Urine Nitrite NEGATIVE NEGATIVE Urine Bilirubin NEGATIVE NEGATIVE Urine Urobilinogen 0.2 < = 1.0 MG/DL Urine Leukocyte Esterase NEGATIVE NEGATIVE Urine RBC (Auto) 3+ H NEGATIVE Urine RBC 10-25 H /HPF Urine WBC NONE /HPF Urine Squamous Epithelial Cells NONE /HPF Urine Crystals NONE /LPF Urine Bacteria NEGATIVE /HPF Urine Casts NONE /LPF Urine Mucus NEGATIVE /LPF Urine Culture Indicated NO My Orders Orders - ARDEN YOO LOCATION AND MEASUREMENT TECHNICIAN Cbc With Automated Diff (10/26/20 16:43) Comprehensive Metabolic Panel (10/26/20 16:43) Ua Culture If Indicated (10/26/20 16:43) Ed Iv/Invasive Line Start (10/26/20 16:43) Fentanyl Injection (Sublimaze Injection (10/26/20 16:45) Ct Abdomen/Pelvis W (10/26/20 16:43) Ns Iv 1000 Ml (Sodium Chloride 0.9%) (10/26/20 17:15) Cervical Spine 3 Views Or Less (10/26/20 17:21) Iohexol Injection (Omnipaque 350 Mg/Ml 1 (10/26/20 17:30) Received Contrast (Hold Metformin- Contr (10/26/20 17:30) Ns (Ivpb) (Sodium Chloride 0.9% Ivpb Bag (10/26/20 17:30) Medications Given in ED Current Medications Medications Dose Ordered Sig/Chinedu Route Start Time Stop Time Status Last Admin Dose Admin Fentanyl Citrate 50 mcg ONCE ONCE IVP 10/26/20 16:45 10/26/20 16:46 DC 10/26/20 17:00 50 MCG Iohexol 75 ml ONCE ONCE IV 10/26/20 17:30 10/26/20 17:31 DC 10/26/20 17:45 75 ML Sodium Chloride 100 ml ONCE ONCE IV 10/26/20 17:30 10/26/20 17:31 DC 10/26/20 17:45 80 ML Vital Signs/I&O 10/26/20 16:37 Temp 35.7 Pulse 120 Resp 18 B/P (MAP) 163/100 (121) Pulse Ox 95 O2 Delivery Room Air Diagnostic Imaging Diagonstic Imaging: Xray, CT Comments NAME: CATALINA ACEVEDO [facility]ricia [facility] REC#: [id number] PT STATUS: REG ER : 1950 PHYSICIAN: ARDEN YOO APRN ADMIT DATE: 10/26/20/ER Draft Date of Exam:10/26/20 CT ABDOMEN/PELVIS W PROCEDURE: CT abdomen and pelvis with contrast. TECHNIQUE: Multiple contiguous axial images were obtained through the abdomen and pelvis after administration of intravenous contrast. Auto Exposure Controls were utilized during the CT exam to meet ALARA standards for radiation dose reduction. All CT scans use one or more of the following dose optimizing techniques: automated exposure control, MA and/or KvP adjustment based on patient size and exam type or iterative reconstruction. INDICATION: Pelvic pain. Groin pain. Prostate biopsy 2 days ago. COMPARISON: CT abdomen with IV contrast 06/10/2020. FINDINGS: Emphysematous changes in the lung bases. Cholecystectomy. Multiple cysts left kidney are similar to the prior exam. Postoperative changes in the GE junction. The liver, pancreas, spleen, adrenals, right kidney, collecting systems and partially opacified bladder are unremarkable. No large fluid collection or evidence of hemorrhage in the region of the prostate. Bowel anastomosis in the proximal colon. No free intraperitoneal air or fluid. No lymphadenopathy. No evidence of bowel obstruction. No acute osseous findings. IMPRESSION: 1. No acute CT findings in the abdomen or pelvis. 2. Chronic and incidental findings as above. 3. No evidence of hemorrhage within or around the prostate. Dictated on workstation # [id number] Dict: 10/26/20 1802 Trans: 10/26/20 1814 [facility] [id number] Interpreted by: CARMEN LAWRENCE MD Electronically signed by: Departure Impression Primary Impression: Post procedure discomfort Additional Impression: Tachycardia Disposition: 01 HOME, SELF-CARE Condition: Stable Departure-Patient Inst. Decision time for Depature: 18:22 Referrals: RED HERNDON MD (PCP/Family) Primary Care Physician Patient Instructions: Managing Pain After Surgery Add. Discharge Instructions: 1. Return to ER for any concerns 2. Follow-up with your doctor next week 3. ARDEN YOO LOCATION AND MEASUREMENT TECHNICIAN Oct 26, 2020 16:46
[2020-10-26 16:52] LABS: BASOPHILS % (AUTO) 0 % (0-10); EOSINOPHILS % (AUTO) 0 % (0-10); HEMATOCRIT 39 % (40-54); HEMOGLOBIN 12.3 g/dL (13.3-17.7); LYMPHOCYTES # (AUTO) 1.3 10^3/uL (1.0-4.0); LYMPHOCYTES % (AUTO) 19 % (12-44); MEAN CORPUSCULAR HEMOGLOBIN 30 pg (25-34); MEAN CORPUSCULAR HGB CONC 32 g/dL (32-36); MEAN CORPUSCULAR VOLUME 97 fL (80-99); MONOCYTES # (AUTO) 0.6 10^3/uL (0.0-1.0); MONOCYTES % (AUTO) 8 % (0-12); NEUTROPHILS % (AUTO) 72 % (42-75); PLATELET COUNT 199 10^3/uL (130-400); WHITE BLOOD COUNT 6.9 10^3/uL (4.3-11.0)
[2020-10-26 17:02] LABS: POTASSIUM 3.9 MMOL/L (3.6-5.0)
[2020-10-26 17:03] LABS: CALCIUM 8.6 MG/DL (8.5-10.1)
[2020-10-26 17:05] LABS: TOTAL PROTEIN 7.3 GM/DL (6.4-8.2)
[2020-10-26 17:06] LABS: BILIRUBIN,TOTAL 0.5 MG/DL (0.1-1.0)
--- NOTE | 2020-10-26 17:07 | NUR ---
AMB TO BATHROOM TO OBTAIN US REPORTS PAIN IS BETTER.
[2020-10-26 17:08] LABS: CREATININE SERUM 1.44 MG/DL (0.60-1.30)
[2020-10-26 17:15] LABS: BILIRUBIN,URINE NEGATIVE (NEGATIVE); CLARITY,URINE CLEAR; COLOR,URINE YELLOW; GLUCOSE, URINE (UA) NEGATIVE (NEGATIVE); KETONES,URINE NEGATIVE (NEGATIVE); LEUKOCYTE ESTERASE ,URINE NEGATIVE (NEGATIVE); NITRITE,URINE NEGATIVE (NEGATIVE); PROTEIN,URINE NEGATIVE (NEGATIVE)
[2020-10-26] MEDS ORDERED: NS IV 1000 ML 1,000 ML IV SCH (17:15)
[2020-10-26 17:27] LABS: BACTERIA,URINE NEGATIVE /HPF
[2020-10-26] MEDS ORDERED: HOLD METFORMIN - RECEIVED CONTRAST 20 ML VIAL IV SCH (17:30)
[2020-10-26] MEDS ORDERED: NS 100 ML (IVPB) BAG IV ONE (17:30)
[2020-10-26] MEDS ORDERED: IOHEXOL 350 MG/ML 100 ML (OMNIPAQUE 350) VIAL IV ONE (17:30)
--- NOTE | 2020-10-26 18:14 | Diagnostic Imaging Report ---
PROCEDURE: CT abdomen and pelvis with contrast. TECHNIQUE: Multiple contiguous axial images were obtained through the abdomen and pelvis after administration of intravenous contrast. Auto Exposure Controls were utilized during the CT exam to meet ALARA standards for radiation dose reduction. All CT scans use one or more of the following dose optimizing techniques: automated exposure control, MA and/or KvP adjustment based on patient size and exam type or iterative reconstruction. INDICATION: Pelvic pain. Groin pain. Prostate biopsy 2 days ago. COMPARISON: CT abdomen with IV contrast 06/10/2020. FINDINGS: Emphysematous changes in the lung bases. Cholecystectomy. Multiple cysts left kidney are similar to the prior exam. Postoperative changes in the GE junction. The liver, pancreas, spleen, adrenals, right kidney, collecting systems and partially opacified bladder are unremarkable. No large fluid collection or evidence of hemorrhage in the region of the prostate. Bowel anastomosis in the proximal colon. No free intraperitoneal air or fluid. No lymphadenopathy. No evidence of bowel obstruction. No acute osseous findings. IMPRESSION: 1. No acute CT findings in the abdomen or pelvis. 2. Chronic and incidental findings as above. 3. No evidence of hemorrhage within or around the prostate. Dictated by: Dictated on workstation # [id number]
[2020-10-26 18:30] VITALS: BP 149/96
--- NOTE | 2020-10-26 18:30 | NUR ---
CALLED CAB FOR PATIENT AND HIS WHO WAS ALSO A PATIENT . [facility] WILL NOT BE HERE FOR 2 HRS. WILL TRY TO CALL FRIEND.
--- NOTE | 2020-10-26 18:35 | Diagnostic Imaging Report ---
EXAMINATION: Cervical spine 2 or 3 views HISTORY: Neck pain. COMPARISON: MRI cervical spine 12/26/2014. FINDINGS: Vertebral body heights are maintained. No acute fracture, dislocation, or destructive osseous process. Disc heights are maintained. Mild multilevel facet hypertrophy. Prevertebral soft tissues are normal. The odontoid process is intact. IMPRESSION: Degenerative changes of the cervical spine without acute osseous abnormality. Dictated by: Dictated on workstation # [id number]
== END 2020-10-26 18:30 | disposition home or self-care (01) ==
LOC: EDUNIT# 16:37 → ER 16:39
DX: G89.18 Other acute postprocedural pain (principal); R00.0 Tachycardia, unspecified; K21.9 Gastro-esophageal reflux disease without esophagitis; F41.9 Anxiety disorder, unspecified; H40.9 Unspecified glaucoma; I10 Essential (primary) hypertension; Z82.49 Family history of ischemic heart disease and other diseases of the circulatory system; Z83.3 Family history of diabetes mellitus; Z88.6 Allergy status to analgesic agent; Z88.8 Allergy status to other drugs, medicaments and biological substances; Z86.73 Personal history of transient ischemic attack (TIA), and cerebral infarction without residual deficits; Z95.9 Presence of cardiac and vascular implant and graft, unspecified; Z79.52 Long term (current) use of systemic steroids
CPT/HCPCS: 36415; 72040; 74177; 80053; 81000; 85025

== ENCOUNTER → 2020-11-06 | Outpatient (CLI) | payer MEDICARE, BC ==
[~2020-11-06] MED LIST changes: +CATHETER FLUSH 10 ML SYR IV PRN
--- NOTE | 2020-11-06 12:57 | Diagnostic Imaging Report ---
PROCEDURE: CT abdomen and pelvis without contrast. TECHNIQUE: Multiple contiguous axial images were obtained through the abdomen and pelvis without the use of intravenous contrast. Auto Exposure Controls were utilized during the CT exam to meet ALARA standards for radiation dose reduction. INDICATION: Prostate cancer. The previous CT abdomen/pelvis exam of 10/26/2020 failed to show any sign of an acute abnormality of the abdomen or pelvis. On this exam the unenhanced liver seems similar in appearance to the prior exam. The spleen, pancreas, adrenals, aorta and inferior vena cava are unremarkable for an acute abnormality. As noted on the prior exam the gallbladder is surgically absent and there are numerous surgical clips about the gastroesophageal junction of the stomach. The prior study also noted numerous cysts involving the left kidney as well as a small nonobstructive calculus in the inferior pole of the left kidney. Those findings are again visualized and stable. The right kidney shows no acute abnormality. By history the appendix is surgically absent. There is no pelvic mass or free fluid collection noted. The urinary bladder and prostate gland are grossly unremarkable. The bone windows show no sign of a fracture or of a destructive lesion. The lung bases are clear. IMPRESSION: 1. When compared to the prior study there has been no significant change. There is no acute abnormality identified. 2. There is no sign of skeletal metastatic disease related to the patient's diagnosis of prostate carcinoma. If further evaluation of the osseous structures for metastatic disease is desired, then a nuclear medicine bone scan would be recommended. Dictated by: Dictated on workstation # [id number]
--- NOTE | 2020-11-06 16:53 | Diagnostic Imaging Report ---
INDICATION: Prostate cancer EXAM: Whole body bone scan 25.6 mCi of technetium 99m MDP was given intravenously. Whole body bone scan was obtained after a 3 hour delay. COMPARISON made with CT abdomen and pelvis done on the same day. There is activity in both kidneys. There are no areas of increased uptake in the skeletal system suspicious for metastatic disease. There are degenerative changes in the medial compartment of the right knee. IMPRESSION: Degenerative changes of the medial compartment of the right knee. No evidence for metastatic bone disease. Dictated by: Dictated on workstation # [id number]
== END ==
LOC: CARD 12:00
PROVIDERS: ATTEND Urology
DX: C61 Malignant neoplasm of prostate (principal); M17.11 Unilateral primary osteoarthritis, right knee
CPT/HCPCS: 74176; 78306; A9503

== ENCOUNTER 2020-11-29 10:31 | Outpatient (RCR) | payer MEDICARE, BC ==
[~2020-11-29 10:31] MED LIST changes: -CATHETER FLUSH 10 ML SYR IV PRN
[2020-12-29] MEDS ORDERED: MV-M1TAB20 PO (13:15)
[2020-12-29] MEDS ORDERED: ALPR1TAB2 PO (13:15)
[2020-12-29] MEDS ORDERED: MULT-1029 PO (13:15)
[2020-12-29] MEDS ORDERED: OLME1TAB21 PO (13:15)
[2020-12-29] MEDS ORDERED: OMEP20CA18 PO (13:15)
[2020-12-29] MEDS ORDERED: HYDR-3820 PO (13:15)
== END 2021-02-27 | disposition home or self-care (01) ==
LOC: ONC 10:31
PROVIDERS: ATTEND Radiology Radiation Oncology
DX: C61 Malignant neoplasm of prostate (principal); I10 Essential (primary) hypertension
CPT/HCPCS: 76873; G0463; 99204

== ENCOUNTER → 2021-04-13 | Outpatient (CLI) | payer MEDICARE, BC ==
[~2021-04-13] MED LIST changes: +ALPR1TAB2 PO; +HYDR-3820 PO; +MULT-1029 PO; +MV-M1TAB20 PO; +OLME1TAB21 PO; +OMEP20CA18 PO
== END ==
LOC: CARD 10:55
PROVIDERS: ATTEND Internal Medicine Cardiovascular Disease
DX: I10 Essential (primary) hypertension (principal); I36.1 Nonrheumatic tricuspid (valve) insufficiency; I25.10 Atherosclerotic heart disease of native coronary artery without angina pectoris
CPT/HCPCS: 93306

== ENCOUNTER 2021-04-14 05:51 | Emergency (ER) | payer MEDICARE, BC ==
[~2021-04-14] VITALS: Ht 180.3 cm; Wt 69.4 kg
[2021-04-14] MEDS ORDERED: NS IV 500 ML 500 ML IV ONE (07:00)
--- NOTE | 2021-04-14 07:02 | ED General ---
General Chief Complaint: General Problems/Pain Stated Complaint: PROSTATE CA,NAUSEA Source of Information: Patient Exam Limitations: No Limitations History of Present Illness Date Seen by Provider: April 14, 2021 Time Seen by Provider: 06:35 Initial Comments Here with vague report of nausea concerns about prostate cancer. Patient rob rs quite sad and relates that he lost his of 47 years last week and he is dealing with her . Patient does have longstanding history of Crohn's disease. He does follow with Dr. Becerra. Has had the nausea but no vomiting. He apparently was due to get radiation treatment for the prostate cancer earlier this year but missed the surgery after becoming ill after Covid vac cination. He has been unable to get back in with the urologist and radiation oncologist since although has had significant challenges related to his who is on hospice. He is going to try to get back in with that system. He actually came here at 1 AM and it was quite busy so he slept in the parking lot because of concerns. Does admit to anxiety and depression. Patient is well-known to me. Timing/Duration: 1 Week Severity: Mild, Moderate Associated Systoms: No Chest Pain, No Cough, No Fever/Chills; Loss of Appetite, Malaise, Nausea/Vomiting; No Weakness Allergies and Home Medications Allergies Coded Allergies: adalimumab (Verified Allergy, Unknown, 03/07/14) infliximab (Verified Allergy, Unknown, NEAR , 03/07/14) meloxicam (Unverified Allergy, Unknown, 12/24/16) metoclopramide (Verified Allergy, Unknown, 03/07/14) aspirin (Verified Adverse Reaction, Unknown, 03/07/14) Was told by his physician not to take it due to his Crohn's disease. Home Medications Alprazolam 1 Mg Tablet, 1 MG PO PRN, (Reported) Hydrocodone/Acetaminophen 1 Each Tablet, 1 EACH PO TID, (Reported) Multivit-Min/FA/Lycopene/Lut 1 Each Tablet, 1 EACH PO DAILY, (Reported) Mv-Mn/Iron/FA/Herbal Cmplx#190 1 Each Tablet, 1 EACH PO DAILY, (Reported) Olmesartan/Hydrochlorothiazide 1 Each Tablet, 1 EACH PO DAILY, (Reported) Omeprazole 20 Mg Capsule., 20 MG PO DAILY, (Reported) Patient Home Medication List Home Medication List Reviewed: Yes Review of Systems Review of Systems Constitutional: see HPI; No chills, No fever EENTM: no symptoms reported Respiratory: No cough, No short of breath Cardiovascular: No chest pain; edema Gastrointestinal: nausea; No vomiting Genitourinary: see HPI Musculoskeletal: no symptoms reported Skin: no symptoms reported Psychiatric/Neurological: Anxiety, Depressed All Other Systems Reviewed Negative Unless Noted: Yes Past Jgrqiqg-Xxkshe-Qocdoy Hx Past Med/Social Hx: Reviewed Nursing Past Med/Soc Hx Patient Social History Alcohol Use: Denies Use Smoking Status: Never a Smoker 2nd Hand Smoke Exposure: No Recent Hopitalizations: No Immunizations Up To Date Tetanus Booster (TDap): Unknown Date of Pneumonia Vaccine: Nov 26, 2009 Date of Influenza Vaccine: Aug 24, 2016 Seasonal Allergies Seasonal Allergies: No Past Medical History Surgeries: Yes (HEART CATH, 2015, ESWL AND STONEBASKETING, L KNEE SCOPE X2 ) Abdominal, Eye Surgery, Gallbladder Respiratory: No Cardiac: Yes Hypertension Neurological: Yes (STROKE LAST 12/2014) Stroke, TIA Reproductive Disorders: No Sexually Transmitted Disease: No Genitourinary: Yes Kidney Stones Gastrointestinal: Yes (HEARTBURN) Gastroesophageal Reflux, Crohns Disease, Ulcer Musculoskeletal: Yes Arthritis 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) HEENT: Yes Cataract, Glaucoma Loss of Vision: Denies Hearing Impairment: Denies Cancer: Yes Prostate Did You Recieve Any Treatments: No Psychosocial: Yes Sleep Difficulties, Anxiety Integumentary: No Blood Disorders: No Adverse Reaction/Blood Tranf: No Family Medical History Reviewed Nursing Family Hx Family history: Cardiovascular disease 03 FATHER 03 MOTHER 09 BROTHER 09 BROTHER 09 BROTHER 09 BROTHER Family history: Coronary thrombosis 09 BROTHER 09 BROTHER 09 BROTHER 09 BROTHER Family history: Diabetes mellitus 03 FATHER Family history: Hypertension 09 SISTER History of - respiratory disease 03 MOTHER Myocardial infarction 09 BROTHER 09 BROTHER 09 BROTHER 09 BROTHER Heart Disease, COPD, Diabetes, Hypertension Physical Exam Vital Signs Vital Signs - First Documented 04/14/21 06:09 Temp 36.5 Pulse 69 Resp 18 B/P (MAP) 146/93 (110) Pulse Ox 97 O2 Delivery Room Air Capillary Refill : Height, Weight, BMI Height: 5'10.00" Weight: 152lbs. 8.0oz. [id number]; 20.56 BMI Method:Estimated General Appearance: Mild Distress, Thin HEENT: PERRL/EOMI, Pharynx Normal Neck: Non Tender, Supple Respiratory: Lungs Clear, Normal Breath Sounds Cardiovascular: Regular Rate, Rhythm, No Murmur Gastrointestinal: Non Tender, Soft Back: Normal Inspection, No CVA Tenderness, No Vertebral Tenderness Extremity: Normal Range of Motion, Non Tender Neurologic/Psychiatric: Alert, Oriented x3 Skin: Warm/Dry, Pallor Progress/Results/Core Measures Suspected Sepsis SIRS Temperature: Pulse: Respiratory Rate: Laboratory Tests 04/14/21 06:15: White Blood Count 6.5 Blood Pressure / Mean: Laboratory Tests 04/14/21 06:15: Creatinine 1.39H, Platelet Count 179, Total Bilirubin 0.8 Results/Orders Lab Results Laboratory Tests Test 04/14/21 06:15 04/14/21 07:03 Range/Units White Blood Count 6.5 4.3-11.0 10^3/uL Red Blood Count 3.92 L 4.30-5.52 10^6/uL Hemoglobin 12.5 L 13.3-17.7 g/dL Hematocrit 38 L 40-54 % Mean Corpuscular Volume 97 80-99 fL Mean Corpuscular Hemoglobin 32 25-34 pg Mean Corpuscular Hemoglobin Concent 33 32-36 g/dL Red Cell Distribution Width 13.8 10.0-14.5 % Platelet Count 179 130-400 10^3/uL Mean Platelet Volume 10.5 9.0-12.2 fL Immature Granulocyte % (Auto) 0 % Neutrophils (%) (Auto) 54 42-75 % Lymphocytes (%) (Auto) 36 12-44 % Monocytes (%) (Auto) 8 0-12 % Eosinophils (%) (Auto) 1 0-10 % Basophils (%) (Auto) 1 0-10 % Neutrophils # (Auto) 3.5 1.8-7.8 10^3/uL Lymphocytes # (Auto) 2.4 1.0-4.0 10^3/uL Monocytes # (Auto) 0.5 0.0-1.0 10^3/uL Eosinophils # (Auto) 0.1 0.0-0.3 10^3/uL Basophils # (Auto) 0.0 0.0-0.1 10^3/uL Immature Granulocyte # (Auto) 0.0 0.0-0.1 10^3/uL Sodium Level 141 135-145 MMOL/L Potassium Level 4.2 3.6-5.0 MMOL/L Chloride Level 105 98-107 MMOL/L Carbon Dioxide Level 29 21-32 MMOL/L Anion Gap 7 5-14 MMOL/L Blood Urea Nitrogen 13 7-18 MG/DL Creatinine 1.39 H 0.60-1.30 MG/DL Estimat Glomerular Filtration Rate 51 BUN/Creatinine Ratio 9 Glucose Level 110 H 70-105 MG/DL Calcium Level 9.4 8.5-10.1 MG/DL Corrected Calcium 9.5 8.5-10.1 MG/DL Magnesium Level 1.9 1.6-2.4 MG/DL Total Bilirubin 0.8 0.1-1.0 MG/DL Aspartate Amino Transf (AST/SGOT) 20 5-34 U/L Alanine Aminotransferase (ALT/SGPT) 19 0-55 U/L Alkaline Phosphatase 82 40-136 U/L Total Protein 6.9 6.4-8.2 GM/DL Albumin 3.9 3.2-4.5 GM/DL Urine Color YELLOW Urine Clarity CLEAR Urine pH 6.0 5-9 Urine Specific Jean 1.010 L 1.016-1.022 Urine Protein NEGATIVE NEGATIVE Urine Glucose (UA) NEGATIVE NEGATIVE Urine Ketones NEGATIVE NEGATIVE Urine Nitrite NEGATIVE NEGATIVE Urine Bilirubin NEGATIVE NEGATIVE Urine Urobilinogen 0.2 < = 1.0 MG/DL Urine Leukocyte Esterase NEGATIVE NEGATIVE Urine RBC (Auto) NEGATIVE NEGATIVE Urine RBC NONE /HPF Urine WBC NONE /HPF Urine Squamous Epithelial Cells NONE /HPF Urine Crystals NONE /LPF Urine Bacteria NEGATIVE /HPF Urine Casts NONE /LPF Urine Mucus NEGATIVE /LPF Urine Culture Indicated NO My Orders Orders - NATA CHOUDHARY MD Cbc With Automated Diff (04/14/21 06:55) Comprehensive Metabolic Panel (04/14/21 06:55) Magnesium (04/14/21 06:55) Ua Culture If Indicated (04/14/21 06:55) Ed Iv/Invasive Line Start (04/14/21 06:55) Ns Iv 500 Ml (Sodium Chloride 0.9%) (04/14/21 07:00) Medications Given in ED Current Medications Medications Dose Ordered Sig/Chinedu Route Start Time Stop Time Status Last Admin Dose Admin Sodium Chloride 500 ml @ 0 mls/hr Q0M ONCE IV 04/14/21 07:00 04/14/21 07:01 DC 04/14/21 07:12 0 MLS/HR Vital Signs/I&O 04/14/21 06:09 Temp 36.5 Pulse 69 Resp 18 B/P (MAP) 146/93 (110) Pulse Ox 97 O2 Delivery Room Air Capillary Refill : Progress Note : Progress Note Seen and evaluated. We did have a long conversation regarding his recent stressors and follow-up for urology and radiation oncology. I did highly encouraged him to talk with his primary care doctor, Dr. Becerra regarding all of these concerns as well. We discussed current work-up and we will go ahead and check some basic labs and UA. I will give 500 of normal saline to ensure appropriate hydration while we are evaluating labs. He agreed with all of this and was appreciative of the time and care. Monitor patient. 0755: Labs reviewed and no significant findings. I did have another long conversation with the patient regarding recent loss and his current medical care. I have strongly encouraged him to follow-up with Dr. Becerra to discuss both further. He is worried about the length of time and its can take to continue evaluation of his prostate cancer and I did discuss with him about following up with Dr. Becerra to see if she can help manage that as far as appointments and recommendations. He states he will. He is encouraged and improved currently. Discharged home with return precautions. Patient verbalized understanding of instructions and agreement with plan. Departure Impression Primary Impression: Nausea Additional Impression: Grief reaction Disposition: 01 HOME, SELF-CARE Condition: Improved Departure-Patient Inst. Decision time for Depature: 07:59 Referrals: RED BECERRA MD (PCP/Family) Primary Care Physician Patient Instructions: Dealing With , Adult, Nausea and Vomiting, Adult ED Add. Discharge Instructions: All discharge instructions reviewed with patient and/or family. Voiced understanding. Call Dr. Becerra's office on Friday for appointment to discuss current concerns and ongoing medical care. Continue home medications as previously prescribed. Drink plenty of fluids and get some rest. Return for worse pain, fever, vomiting, weakness, breathing problems or other concerns as needed. Copy Copies To 1: RED BECERRA MD, TIMOTHY D MD April 14, 2021 07:01
[2021-04-14 07:05] LABS: ALBUMIN 3.9 GM/DL (3.2-4.5); BASOPHILS % (AUTO) 1 % (0-10); EOSINOPHILS # (AUTO) 0.1 10^3/uL (0.0-0.3); EOSINOPHILS % (AUTO) 1 % (0-10); HEMATOCRIT 38 % (40-54); HEMOGLOBIN 12.5 g/dL (13.3-17.7); LYMPHOCYTES # (AUTO) 2.4 10^3/uL (1.0-4.0); LYMPHOCYTES % (AUTO) 36 % (12-44); MEAN CORPUSCULAR HEMOGLOBIN 32 pg (25-34); MEAN CORPUSCULAR HGB CONC 33 g/dL (32-36); MEAN CORPUSCULAR VOLUME 97 fL (80-99); MEAN PLATELET VOLUME 10.5 fL (9.0-12.2); MONOCYTES # (AUTO) 0.5 10^3/uL (0.0-1.0); MONOCYTES % (AUTO) 8 % (0-12); NEUTROPHILS # (AUTO) 3.5 10^3/uL (1.8-7.8); NEUTROPHILS % (AUTO) 54 % (42-75); PLATELET COUNT 179 10^3/uL (130-400); WHITE BLOOD COUNT 6.5 10^3/uL (4.3-11.0)
[2021-04-14 07:06] LABS: POTASSIUM 4.2 MMOL/L (3.6-5.0)
[2021-04-14 07:07] LABS: CALCIUM 9.4 MG/DL (8.5-10.1)
[2021-04-14 07:08] LABS: TOTAL PROTEIN 6.9 GM/DL (6.4-8.2)
[2021-04-14 07:10] LABS: BILIRUBIN,TOTAL 0.8 MG/DL (0.1-1.0)
[2021-04-14 07:10] LABS: BILIRUBIN,URINE NEGATIVE (NEGATIVE); CLARITY,URINE CLEAR; COLOR,URINE YELLOW; GLUCOSE, URINE (UA) NEGATIVE (NEGATIVE); KETONES,URINE NEGATIVE (NEGATIVE); LEUKOCYTE ESTERASE ,URINE NEGATIVE (NEGATIVE); NITRITE,URINE NEGATIVE (NEGATIVE); PROTEIN,URINE NEGATIVE (NEGATIVE)
[2021-04-14 07:12] LABS: CREATININE SERUM 1.39 MG/DL (0.60-1.30)
[2021-04-14 07:15] LABS: MAGNESIUM 1.9 MG/DL (1.6-2.4)
[2021-04-14 07:28] LABS: BACTERIA,URINE NEGATIVE /HPF
[2021-04-14 08:24] VITALS: BP 144/88
== END 2021-04-14 08:26 | disposition home or self-care (01) ==
LOC: EDUNIT# 05:51 → ER 05:56
DX: R11.0 Nausea (principal); F43.20 Adjustment disorder, unspecified; C61 Malignant neoplasm of prostate; I10 Essential (primary) hypertension; F41.9 Anxiety disorder, unspecified; K21.9 Gastro-esophageal reflux disease without esophagitis; Z87.442 Personal history of urinary calculi; Z87.19 Personal history of other diseases of the digestive system; Z79.899 Other long term (current) drug therapy
CPT/HCPCS: 36415; 80053; 81000; 83735; 85025

== ENCOUNTER → 2021-07-18 | Outpatient (CLI) | payer MEDICARE, BC ==
[~2021-07-18] MED LIST changes: +CATHETER FLUSH 10 ML SYR IV PRN; +REGADENOSON 0.4 MG/5 ML SYR (LEXISCAN) IV ONE
[2021-07-18 13:05] VITALS: BP 158/94
--- NOTE | 2021-07-18 15:23 | Cardiology Stress Test Report ---
Stress Test Report Date of Procedure/Referring: Date of Procedure: Jul 18, 2021 PCP Lamont Myers MD Admitting Physician Charu Becerra MD Indications: CP Baseline Heart Rate: 73 Baseline Blood Pressure: Blood Pressure Systolic: 158 Blood Pressure Diastolic: 94 Baseline Vitals Vital Signs Date Time Temp Pulse Resp B/P (MAP) Pulse Ox O2 Delivery O2 Flow Rate FiO2 07/18/21 13:05 70 18 158/94 (115) 98 Room Air Baseline EKG: Baseline EKG: NSR Summary After explaining the procedure to the patient, he signed a consent and then brought to the stress nuclear laboratory. Patient received 0.4 mg Lexiscan for stress test, ECG, heart rate and blood pressure were monitored continuously. Resting and stress dose of radio tracer were injected, imaging was acquired and reviewed in short axis, horizontal long axis and vertical long axis views. TID: 1.17 SSS: 2 SDS: 0 EF: 58 1. Patient tolerated Lexiscan well 2. Diaphragmatic attenuation with mild decreased uptake involving the inferoapical segment true apex and anterior apical segment with subtle reversibility, could be secondary to diaphragmatic attenuation 3. Normal left ventricular size, EF 58% LAMONT MYERS MD Jul 18, 2021 15:23
== END ==
LOC: CARD 12:00
PROVIDERS: ATTEND Internal Medicine Cardiovascular Disease
DX: I25.10 Atherosclerotic heart disease of native coronary artery without angina pectoris (principal); I10 Essential (primary) hypertension
CPT/HCPCS: 78452; 93017; A9502

== ENCOUNTER 2022-01-29 17:55 | Inpatient (IN) | payer MEDICARE, BC ==
[~2022-01-29] VITALS: Ht 182 cm; Wt 71.2 kg
[~2022-01-29 17:55] MED LIST changes: -CATHETER FLUSH 10 ML SYR IV PRN; -REGADENOSON 0.4 MG/5 ML SYR (LEXISCAN) IV ONE
[2022-01-29] MEDS ORDERED: LACTATED RINGERS 1,000 ML IV ONE ×4 (18:00→20:42)
[2022-01-29] MEDS ORDERED: ACETAMINOPHEN 500 MG TAB (TYLENOL) PO PRN (18:15)
[2022-01-29 18:23] LABS: BASOPHILS # (AUTO) 0.1 10^3/uL (0.0-0.1); BASOPHILS % (AUTO) 0 % (0-10); EOSINOPHILS % (AUTO) 0 % (0-10); HEMATOCRIT 42 % (40-54); HEMOGLOBIN 14.1 g/dL (13.3-17.7); LYMPHOCYTES # (AUTO) 1.1 10^3/uL (1.0-4.0); LYMPHOCYTES % (AUTO) 6 % (12-44); MEAN CORPUSCULAR HEMOGLOBIN 32 pg (25-34); MEAN CORPUSCULAR HGB CONC 33 g/dL (32-36); MEAN CORPUSCULAR VOLUME 97 fL (80-99); MEAN PLATELET VOLUME 11.1 fL (9.0-12.2); MONOCYTES # (AUTO) 0.4 10^3/uL (0.0-1.0); MONOCYTES % (AUTO) 2 % (0-12); NEUTROPHILS # (AUTO) 15.9 10^3/uL (1.8-7.8); NEUTROPHILS % (AUTO) 90 % (42-75); PLATELET COUNT 145 10^3/uL (130-400); WHITE BLOOD COUNT 17.7 10^3/uL (4.3-11.0)
--- NOTE | 2022-01-29 18:29 | ED Chest Pain ---
General Stated Complaint: CHEST PAIN Source: patient (VERY LIMITED HISTORIAN--PT TALKING IN PRESENT AND PAST AT THE SAME TIME--DIFFICULT TO DETERMINE WHETHER PT IS TALKING ABOUT NEW PROBLEMS OR OLD/ONGOING PROBLEMS), EMS, old records (ALL [facility] IS FROM OLD RECORDS,AND HAS HAD VERY FEW VISITS HERE) History of Present Illness Date Seen by Provider: Jan 29, 2022 Time Seen by Provider: 17:56 Initial Comments PT ARRIVES VIA EMS FROM HOME--PT LIVES ALONE, LAST YEAR EMS REPORT THAT A FAMILY MEMBER WAS THERE AT THE SCENE, WHO CALLED EMS C/O RIGHT SIDED CHEST PAIN X 3 DAYS PAIN IS WORSE WITH DEEP BREATHS DENIES COUGH DENIES FEVER, BUT TEMP IS > 102 ON ARRIVAL HERE PT HAS BEEN INCONTINENT OF BOWEL AND BLADDER, WITH DIARRHEAL STOOLS--PT IS WEARING A BRIEF, BUT IS UNCLEAR IF INCONTINENCE IS A NEW OR OLD PROBLEM ( OLD RECORDS LIST CHRONIC DIARRHEA) C/O HEADACHE--UNCLEAR HOW LONG THIS HAS BEEN GOING ON PT STATES HE HAS BEEN DRINKING BUT NOT BEEN EATING--IS UNCLEAR HOW LONG THIS HAS BEEN GOING ON PT HAS HISTORY OF CROHN'S DISEASE AND HAS HAD BOWEL RESECTIONS IN PAST PT ALSO HAS PROSTATE CANCER AND HAS BEEN TREATED AT --PT MENTIONS CHEMO, BUT IS UNCLEAR WHETHER HE IS STILL RECEIVING TREATMENT OR NOT. EMS REPORT THAT A "SPOT" WAS FOUND ON HIS RIGHT LUNG, "POSSIBLY CANCER" --HAS SEEN A "LUNG DR" IN [place] NO OTHER INFORMATION IS OBTAINABLE AT THIS TIME NO TREATMENT BY EMS PT DOES STATE HE HAS HAD COVID-19 VACCINE X 3 Allergies and Home Medications Allergies Coded Allergies: adalimumab (Verified Allergy, Unknown, 03/07/14) infliximab (Verified Allergy, Unknown, NEAR , 03/07/14) meloxicam (Unverified Allergy, Unknown, 12/24/16) metoclopramide (Verified Allergy, Unknown, 03/07/14) aspirin (Verified Adverse Reaction, Unknown, 03/07/14) Was told by his physician not to take it due to his Crohn's disease. Patient Home Medication List Home Medication List Reviewed: Yes Alprazolam (Alprazolam) 0.5 Mg Tablet, 0.5 MG PO TID PRN for ANXIETY, (Reported) Entered as Reported by: OTTO GONZALEZ on 01/30/22 5283 Last Action: Reviewed Cholecalciferol (Vitamin D3) (Vitamin D3) 25 Mcg Capsule, 25 MCG PO, (Reported) Entered as Reported by: OTTO GONZALEZ on 01/30/221402 Last Action: Reviewed Cyanocobalamin (Vitamin B-12) (Vitamin B-12) 1,000 Mcg Tab.subl, 500 MG PO DAILY, (Reported) Entered as Reported by: OTTO GONZALEZ on 01/30/221402 Last Action: Reviewed Hydrocodone/Acetaminophen (Hydrocodone-Acetamin 10-325 mg) 1 Each Tablet, 1-2 EACH PO QID PRN for PAIN-MODERATE (5-7), (Reported) Entered as Reported by: JEANNETTE BROWN on 12/29/201314 Last Action: Reviewed Multivitamin/Iron/Folic Acid (Centrum Adults Tablet) 1 Each Tablet, 1 EACH PO DAILY, (Reported) Entered as Reported by: OTTO GONZALEZ on 01/30/221403 Last Action: Reviewed Olmesartan Medoxomil (Olmesartan Medoxomil) 40 Mg Tablet, 40 MG PO DAILY, (Reported) Entered as Reported by: OTTO GONZALEZ on 01/30/221402 Last Action: Reviewed Oxycodone HCl (Oxycontin) 30 Mg Tab.er.12h, 30 MG PO Q12H, (Reported) Entered as Reported by: OTTO GONZALEZ on 01/30/221402 Last Action: Reviewed Discontinued Medications Alprazolam (Xanax) 1 Mg Tablet, 1 MG PO PRN, (Reported) Discontinued Reason: No Longer Taking Entered as Reported by: JEANNETTE BROWN on 12/29/201314 Last Action: Discontinued Multivit-Min/FA/Lycopene/Lut (Centrum Silver Tablet) 1 Each Tablet, 1 EACH PO DAILY, (Reported) Discontinued Reason: No Longer Taking Entered as Reported by: JEANNETTE BROWN on 12/29/201314 Last Action: Discontinued Mv-Mn/Iron/FA/Herbal Cmplx#190 (Vitamin D3 Complete Caplet) 1 Each Tablet, 1 EACH PO DAILY, (Reported) Discontinued Reason: No Longer Taking Entered as Reported by: JEANNETTE BROWN on 12/29/201314 Last Action: Discontinued Olmesartan/Hydrochlorothiazide (Benicar Hct 40-12.5 mg Tablet) 1 Each Tablet, 1 EACH PO DAILY, (Reported) Discontinued Reason: No Longer Taking Entered as Reported by: JEANNETTE BROWN on 12/29/201314 Last Action: Discontinued Omeprazole (Omeprazole) 20 Mg Capsule.dr, 20 MG PO DAILY, (Reported) Discontinued Reason: No Longer Taking Entered as Reported by: JEANNETTE BROWN on 12/29/201314 Last Action: Discontinued Review of Systems Review of Systems Constitutional: see HPI, malaise, weakness EENTM: No Symptoms Reported Respiratory: See HPI; Denies Cough Cardiovascular: See HPI, Chest Pain Gastrointestinal: See HPI Genitourinary: See HPI Musculoskeletal: no symptoms reported Psychiatric/Neurological: See HPI, Headache Past Bfksnrm-[id number]-Pzdbhc Hx Patient Social History Tobacco Use?: No Smoking Status: Never a Smoker Substance use?: No Alcohol Use?: No Immunizations Up To Date Tetanus Booster (TDap): Unknown Seasonal Allergies Seasonal Allergies: No Past Medical History Surgeries: Yes (HEART CATH 2014, ESWL AND STONEBASKETING, L KNEE SCOPE X2 ;BOWEL RESECTION) Abdominal, Bowel Surgery, Cardiac (CATH), Eye Surgery, Gallbladder, Orthopedic, Renal Respiratory: No Cardiac: Yes Hypertension Neurological: Yes (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; LAST STROKE 12/2014) Headaches /Migraines, Stroke, TIA Reproductive Disorders: No Sexually Transmitted Disease: No Genitourinary: Yes (PROSTATE CANCER) Kidney Stones Gastrointestinal: Yes (HEARTBURN; BOWEL RESECTIONS) Gastroesophageal Reflux, Crohns Disease, Chronic Diarrhea, Ulcer Musculoskeletal: Yes Arthritis 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; MALNUTRITION) Diabetes, Non-Insulin dep HEENT: Yes (BILATERAL CATARACT SURGER) Cataract, Glaucoma Loss of Vision: Denies Hearing Impairment: Denies Cancer: Yes Prostate Did You Recieve Any Treatments: Yes TREATMENT IS UNCLEAR--UNABLE TO DETERMINE IF HE HAS HAD CHEMO OR RADIATION OR BOTH, PT IS LIMITED HISTORIAN ON 01/29/22 Psychosocial: Yes (DRUG OVERDOSE) Sleep Difficulties, Anxiety, Suicide Attempts, Depression Integumentary: Yes (SHINGLES) Blood Disorders: No Adverse Reaction/Blood Tranf: No Family Medical History Family history: Cardiovascular disease 03 FATHER 03 MOTHER 09 BROTHER 09 BROTHER 09 BROTHER 09 BROTHER Family history: Coronary thrombosis 09 BROTHER 09 BROTHER 09 BROTHER 09 BROTHER Family history: Diabetes mellitus 03 FATHER Family history: Hypertension 09 SISTER History of - respiratory disease 03 MOTHER Myocardial infarction 09 BROTHER 09 BROTHER 09 BROTHER 09 BROTHER Heart Disease, COPD, Diabetes, Hypertension PAST SURGICAL HISTORY: -PARTIAL GASTRECTOMY AND VAGUS NERVE REMOVED -BOWEL RESECTION 1976 -CHOLECYSTECTOMY 01/2016 -BILATERAL CATARACT SURGERY -KIDNEY STONE REMOVAL/STONE BASKET REMOVAL PLUS LITHOTRIPSY -PROSTATE BIOPSY -CARDIAC CATH 02/2014--MILD CAD, SIGNIFICANT HYPERTENSIVE CHANGES, NO INTERVENTION -LEFT KNEE SCOPE X 2 Physical Exam Vital Signs Vital Signs - First Documented 01/29/22 01/29/22 17:55 18:13 Temp 39.2 Pulse 131 Resp 22 B/P (MAP) 142/92 (109) Pulse Ox 97 O2 Delivery Nasal Cannula O2 Flow Rate 2.00 Capillary Refill : Height, Weight, BMI Height: 5'10.00" Weight: 152lbs. 8.0oz. 69.727296ku; 21.00 BMI Method:Estimated General Appearance: Chronically ill, Thin, Other (LETHARGIC; LOOKS ILL; COVERED IN DIARRHEAL STOOL AND URINE. ) HEENT: PERRL/EOMI, Other (ORAL MUCOSA EXTREMELY DRY; POST OP CHANGES OF CORNEAS BILATERALLY) Neck: Non Tender Respiratory: Normal Breath Sounds, No Accessory Muscle Use, No Respiratory Distress Cardiovascular: No Murmur, Tachycardia Gastrointestinal: Non Tender, Soft, Abnormal Bowel Sounds (DECREASED) Genital/Rectal: Other (INCONTINENT OF URINE AND STOOL; SCROTUM VERY E RYTHEMATOUS/MACERATED DUE TO INCONTINENCE. NO ULCERS. ) Extremity: Pedal Edema (TRACE BILATERALLY, WITH MILD CHRONIC VENOUS STASIS CHANGES BILATERALLY) Neurologic/Psychiatric: Alert, No Motor/Sensory Deficits (GROSSLY INTACT), Other (AWAKE, ALERT, BUT LETHARGIC, GIVES MINIMAL ANSWERS AND DOES NOT VOLUNTEER ANY INFORMATION. FOLLOWS SIMPLE COMMANDS. ) Skin: Normal Color, Warm/Dry (VERY WARM) Focused Exam Sepsis Stage: Sepsis Possible Source: Pulmonary Lactate Level 01/29/22 18:20: Lactic Acid Level 3.26*H Time of Focused Exam: 10:10 Respiratory: Normal Breath Sounds, No Accessory Muscle Use, No Respiratory Distress Cardiovascular: No Edema, No Murmur, Tachycardia (BUT HEART RATE DOWN FROM ARRIVAL) Capillary Refill: Less Than 3 Seconds Skin: normal color, warm/dry Lactic Acid Level Laboratory Tests Test 01/29/22 18:20 Lactic Acid Level 3.26 MMOL/L (0.50-2.00) *H Within 3hrs of presentation: Admin fluids, Admin ABX, Blood cultures prior to ABX's, Focus exam, Lactate level Progress/Results/Core Measures Results/Orders Lab Results Laboratory Tests Test 01/29/22 18:20 01/29/22 18:22 01/29/22 19:05 Range/Units White Blood Count 17.7 H 4.3-11.0 10^3/uL Red Blood Count 4.38 4.30-5.52 10^6/uL Hemoglobin 14.1 13.3-17.7 g/dL Hematocrit 42 40-54 % Mean Corpuscular Volume 97 80-99 fL Mean Corpuscular Hemoglobin 32 25-34 pg Mean Corpuscular Hemoglobin Concent 33 32-36 g/dL Red Cell Distribution Width 12.1 10.0-14.5 % Platelet Count 145 130-400 10^3/uL Mean Platelet Volume 11.1 9.0-12.2 fL Immature Granulocyte % (Auto) 1 % Neutrophils (%) (Auto) 90 H 42-75 % Lymphocytes (%) (Auto) 6 L 12-44 % Monocytes (%) (Auto) 2 0-12 % Eosinophils (%) (Auto) 0 0-10 % Basophils (%) (Auto) 0 0-10 % Neutrophils # (Auto) 15.9 H 1.8-7.8 10^3/uL Lymphocytes # (Auto) 1.1 1.0-4.0 10^3/uL Monocytes # (Auto) 0.4 0.0-1.0 10^3/uL Eosinophils # (Auto) 0.0 0.0-0.3 10^3/uL Basophils # (Auto) 0.1 0.0-0.1 10^3/uL Immature Granulocyte # (Auto) 0.2 H 0.0-0.1 10^3/uL Neutrophils % (Manual) 94 % Lymphocytes % (Manual) 6 % Blood Morphology Comment NORMAL Erythrocyte Sedimentation Rate 37 H 0-30 MM/HR Prothrombin Time 14.3 12.2-14.7 SEC INR Comment 1.1 0.8-1.4 Activated Partial Thromboplast Time 34 24-35 SEC Sodium Level 133 L 135-145 MMOL/L Potassium Level 3.8 3.6-5.0 MMOL/L Chloride Level 101 98-107 MMOL/L Carbon Dioxide Level 17 L 21-32 MMOL/L Anion Gap 15 H 5-14 MMOL/L Blood Urea Nitrogen 32 H 7-18 MG/DL Creatinine 1.55 H 0.60-1.30 MG/DL Estimat Glomerular Filtration Rate 48 BUN/Creatinine Ratio 21 Glucose Level 197 H 70-105 MG/DL Lactic Acid Level 3.26 *H 0.50-2.00 MMOL/L Calcium Level 10.1 8.5-10.1 MG/DL Corrected Calcium 10.3 H 8.5-10.1 MG/DL Magnesium Level 1.9 1.6-2.4 MG/DL Total Bilirubin 1.3 H 0.1-1.0 MG/DL Aspartate Amino Transf (AST/SGOT) 33 5-34 U/L Alanine Aminotransferase (ALT/SGPT) 25 0-55 U/L Alkaline Phosphatase 89 40-136 U/L Total Creatine Kinase 333 H 30-200 U/L Creatine Kinase MB 2.9 <6.6 NG/ML Myoglobin 420.8 H 10.0-92.0 NG/ML Troponin I < 0.028 <0.028 NG/ML C-Reactive Protein High Sensitivity 34.95 H 0.00-0.50 MG/DL Total Protein 7.8 6.4-8.2 GM/DL Albumin 3.8 3.2-4.5 GM/DL Amylase Level 23 L 25-125 U/L Lipase < 4 L 8-78 U/L Procalcitonin 29.86 H <0.10 NG/ML Influenza Type A (RT-PCR) Not Detected Not Detecte Influenza Type B (RT-PCR) Not Detected Not Detecte SARS-CoV-2 RNA (RT-PCR) Not Detected Not Detecte Urine Color YELLOW Urine Clarity CLEAR Urine pH 6.0 5-9 Urine Specific Branscomb >=1.030 1.016-1.022 Urine Protein 2+ H NEGATIVE Urine Glucose (UA) NEGATIVE NEGATIVE Urine Ketones NEGATIVE NEGATIVE Urine Nitrite NEGATIVE NEGATIVE Urine Bilirubin 1+ H NEGATIVE Urine Urobilinogen 0.2 < = 1.0 MG/DL Urine Leukocyte Esterase NEGATIVE NEGATIVE Urine RBC (Auto) 3+ H NEGATIVE Urine RBC NONE /HPF Urine WBC 0-2 /HPF Urine Squamous Epithelial Cells 0-2 /HPF Urine Crystals NONE /LPF Urine Amorphous Sediment FEW TIO URATES H /LPF Urine Bacteria FEW H /HPF Urine Casts NONE /LPF Urine Mucus NEGATIVE /LPF Urine Culture Indicated YES B-Type Natriuretic Peptide 27.8 <100.0 PG/ML Micro Results Microbiology 01/29/22 Urine Culture - Final, Complete NO GROWTH 01/29/22 Blood Culture - Preliminary, Resulted No growth My Orders Orders - CHIRAG PONCE DO Ed Iv/Invasive Line Start (01/29/22 18:00) Ekg Tracing (01/29/22 18:00) Monitor-Rhythm Ecg Trace Only (01/29/22 18:00) Amylase (01/29/22 18:00) Bnp [place] (01/29/22 18:00) Cbc With Automated Diff (01/29/22 18:00) Comprehensive Metabolic Panel (01/29/22 18:00) Creatine Kinase (01/29/22 18:00) Creatine Kinase Mb (01/29/22 18:00) Hs C Reactive Protein (01/29/22 18:00) Lipase (01/29/22 18:00) Magnesium (01/29/22 18:00) Protime With Inr (01/29/22 18:00) Partial Thromboplastin Time (01/29/22 18:00) Erythrocyte Sedimentation Rate (01/29/22 18:00) Myoglobin Serum (01/29/22 18:00) Troponin I Kathy (01/29/22 18:00) Ed Iv/Invasive Line Start (01/29/22 18:00) Lactated Ringers (Lr 1000 Ml Iv Solution (01/29/22 18:00) Chest 1 View, Ap/Pa Only (01/29/22 18:00) Procalcitonin (Pct) (01/29/22 18:00) Covid 19 Inhouse Test (01/29/22 18:00) Influenza A And B By Pcr (01/29/22 18:00) Isolation Central Supply Req (01/29/22 18:00) Blood Culture (01/29/22 18:06) Urinalysis (01/29/22 18:06) Urine Culture (01/29/22 18:06) Acetaminophen Tablet (Tylenol Tablet) (01/29/22 18:15) Ed Iv/Invasive Line Start (01/29/22 18:06) Vital Signs Adult Sepsis Patie Q15M (01/29/22 18:06) O2 (01/29/22 18:06) Remove Rings In Anticipation O (01/29/22 18:06) Lactic Acid Analyzer (01/29/22 18:06) Ed Iv/Invasive Line Start (01/29/22 18:06) Lactated Ringers (Lr 1000 Ml Iv Solution (01/29/22 18:15) Catheter(Urinary) Insert & Ass 03,15 (01/29/22 18:06) Fentanyl Inj (Sublimaze Injection) (01/29/22 18:30) Manual Differential (01/29/22 18:20) Ceftriaxone 1 Gm Pre-Mix (Rocephin 1 Gm (01/29/22 19:15) Azithromycin Injection (Zithromax Inject (01/29/22 19:15) Ed Iv/Invasive Line Start (01/29/22 19:11) Lactated Ringers (Lr 1000 Ml Iv Solution (01/29/22 19:15) Medications Given in ED Vital Signs/I&O 01/29/22 01/29/22 17:55 18:13 Temp 39.2 Pulse 131 Resp 22 B/P (MAP) 142/92 (109) Pulse Ox 97 O2 Delivery Nasal Cannula O2 Flow Rate 2.00 Progress Progress Note : Progress Note ASPIRIN HELD, THIS IS LISTED AN ALLERGY SEPSIS PROTOCOL INITIATED, AFTER DISCOVERING PT HAD SIGNIFICANT FEVER ON ARRIVAL--TEMP 102.6/39.2 ON ARRIVAL GIVEN IV FLUIDS AND TYLENOL HEART RATE DOWN, TEMP DOWN NO HYPOTENSION NO DETERIORATION IN PT'S CONDITION DURING ER STAY DID DISCUSS WITH PT THAT HE MAY NOT BE ABLE TO STAY AT HOME BY HIMSELF ANYMORE, AND PT AGREES WITH THIS. PT WISHES TO BE DNR/DNI Initial ECG Impression Date: Jan 29, 2022 Initial ECG Impression Time: 18:05 Initial ECG Rate: 129 Initial ECG Rhythm: S.Tach Diagnostic Imaging Comments CXR--PER RADIOLOGIST REPORT AT 192 Heart size and pulmonary vascularity are within normal limits. There is development of focal airspace disease in the central aspect of the right lung. Left lung remains clear. No definite pleural fluid is seen. IMPRESSION: Airspace disease in the right lung likely represents pneumonia. The possibility of pulmonary hemorrhage could have a similar appearance and clinical correlation would be of use. CT CHEST/ABDOMEN/PELVIS--PER RADIOLOGIST REPORT AT 2007 There is dense consolidation within the posterior and basilar aspect of right upper lobe. Air bronchograms are also present. Although evaluation is somewhat limited without intravenous contrast, discrete mass is not identified at this time. There is mild basilar atelectasis and/or pneumonitis in both lower lobes. No significant pleural or pericardial fluid is identified. No definite lytic or sclerotic lesion is identified within the osseous structures of the thorax. IMPRESSION: Findings are most compatible with right upper lobe pneumonia. Followup study would be useful to document resolution as central obstructing lesion cannot be fully excluded. CT abdomen and pelvis: COMPARISON: 11/06/2020. Unenhanced images of liver and spleen reveal no focal abnormality. There are surgical findings at the level of gastroesophageal junction and the gallbladder is surgically absent. No adrenal gland or pancreatic lesion is identified. Prominent left renal cyst and nonobstructing left renal calculi are present. No definite hydronephrosis or hydroureter is identified. Surgical findings are also seen in the right lower quadrant bowel loops. Urinary bladder is decompressed around a Bernardo catheter balloon. Seminal vesicles are unremarkable in appearance. There is no evidence of pathologically enlarged adenopathy within the abdomen or pelvis. There is mild lumbar degenerative disc and facet disease. IMPRESSION: No acute abdominal or pelvic abnormality is identified. Reviewed: Reviewed by Me Departure Communication (Admissions) Family Conversation 1924--SPOKE WITH PT'S DAUGHTER, SARAH CHOU, ON THE PHONE, AND UPDATED HER ON PT'S CONDITION. SHE CONFIRMS THAT PT IS DNR/DNI 1913--SPOKE WITH DR. HERNDON, ACCEPTS PT FOR ADMIT. ORDERS NOTED. SHE REPORTS THAT PT HAS HISTORY OF NON-COMPLIANCE WITH CANCER TREATMENT, AND HAD BEEN FIRED BY RADIATION ONCOLOGIST FOR NON-COMPLIANCE--REPEATEDLY WOULD NOT SHOW UP FOR TREATMENT 1924--REPORT TO E-ICU PHYSICIAN. NO ADDITIONAL RECOMMENDATIONS AT THIS TIME Impression Primary Impression: Sepsis Additional Impressions: Dehydration Pneumonia Prostate CA Hx of Crohn's disease Disposition: ADMITTED INPATIENT Condition: Stable Admissions Decision to Admit Reason: Admit from ER (General) Decision to Admit/Date: Jan 29, 2022 Time/Decision to Admit Time: 19:15 Departure-Patient Inst. Referrals: RED HERNDON MD (PCP/Family) Primary Care Physician CHIRAG PONCE DO Jan 29, 2022 18:02
[2022-01-29] MEDS ORDERED: fentaNYL INJ 100 MCG/2 ML AMP IVP ONE (18:30)
[2022-01-29 18:34] LABS: CLARITY,URINE CLEAR; COLOR,URINE YELLOW; GLUCOSE, URINE (UA) NEGATIVE (NEGATIVE); KETONES,URINE NEGATIVE (NEGATIVE); LEUKOCYTE ESTERASE ,URINE NEGATIVE (NEGATIVE); NITRITE,URINE NEGATIVE (NEGATIVE); PROTEIN,URINE 2+ (NEGATIVE)
[2022-01-29 18:36] LABS: ALBUMIN 3.8 GM/DL (3.2-4.5); CHLORIDE 101 MMOL/L (98-107); POTASSIUM 3.8 MMOL/L (3.6-5.0); SODIUM 133 MMOL/L (135-145)
[2022-01-29 18:38] LABS: AMYLASE 23 U/L (25-125); CALCIUM 10.1 MG/DL (8.5-10.1)
[2022-01-29 18:39] LABS: GLUCOSE 197 MG/DL (70-105); TOTAL PROTEIN 7.8 GM/DL (6.4-8.2)
[2022-01-29 18:40] LABS: CARBON DIOXIDE 17 MMOL/L (21-32); INR 1.1 (0.8-1.4); PROTHROMBIN TIME PATIENT 14.3 SEC (12.2-14.7)
[2022-01-29 18:41] LABS: BILIRUBIN,TOTAL 1.3 MG/DL (0.1-1.0)
[2022-01-29 18:42] LABS: ALKALINE PHOSPHATASE 89 U/L (40-136); CREATININE SERUM 1.55 MG/DL (0.60-1.30); GFR ESTIMATED 48
[2022-01-29 18:43] LABS: ERYTHROCYTE SEDIMENTATION RATE 37 MM/HR (0-30)
[2022-01-29 18:44] LABS: BUN/CREATININE RATIO 21
[2022-01-29 18:44] LABS: AMORPHOUS SEDIMENT,UR FEW AMOR URATES /LPF; BACTERIA,URINE FEW /HPF; BILIRUBIN,URINE 1+ (NEGATIVE); SQUAMOUS EPITHELIAL CELL,UR 0-2 /HPF; WBC,URINE 0-2 /HPF
[2022-01-29 18:45] LABS: ALANINE AMINOTRANSFERASE 25 U/L (0-55); MAGNESIUM 1.9 MG/DL (1.6-2.4)
[2022-01-29 18:46] LABS: LIPASE < 4 U/L (8-78)
[2022-01-29 18:47] LABS: CREATINE KINASE 333 U/L (30-200)
[2022-01-29 18:50] LABS: LYMPHOCYTES % (MANUAL) 6 %; NEUTROPHILS % (MANUAL) 94 %; RBC MORPH NORMAL
[2022-01-29 18:54] LABS: CREATINE KINASE MB 2.9 NG/ML (<6.6)
[2022-01-29] MEDS ORDERED: AZITHROMYCIN INJECTION 500 MG in NS (IVPB) 250 ML IV ONE (19:15)
[2022-01-29] MEDS ORDERED: cefTRIAXone 1 GM PRE-MIX 50 ML IV ONE (19:15)
--- NOTE | 2022-01-29 19:17 | Diagnostic Imaging Report ---
INDICATION: Chest pain AP view of the chest is obtained with comparison made to study of 02/22/2017. Heart size and pulmonary vascularity are within normal limits. There is development of focal airspace disease in the central aspect of the right lung. Left lung remains clear. No definite pleural fluid is seen. IMPRESSION: Airspace disease in the right lung likely represents pneumonia. The possibility of pulmonary hemorrhage could have a similar appearance and clinical correlation would be of use. Dictated by: Dictated on workstation # [id number]
--- NOTE | 2022-01-29 20:04 | Diagnostic Imaging Report ---
PROCEDURE: CT chest, abdomen, and pelvis without contrast. TECHNIQUE: Multiple contiguous axial images were obtained through the chest, abdomen, and pelvis without the use of intravenous contrast. Auto Exposure Controls were utilized during the CT exam to meet ALARA standards for radiation dose reduction. INDICATION: Prostate cancer, Crohn's disease and lung mass. There is dense consolidation within the posterior and basilar aspect of right upper lobe. Air bronchograms are also present. Although evaluation is somewhat limited without intravenous contrast, discrete mass is not identified at this time. There is mild basilar atelectasis and/or pneumonitis in both lower lobes. No significant pleural or pericardial fluid is identified. No definite lytic or sclerotic lesion is identified within the osseous structures of the thorax. IMPRESSION: Findings are most compatible with right upper lobe pneumonia. Followup study would be useful to document resolution as central obstructing lesion cannot be fully excluded. CT abdomen and pelvis: COMPARISON: 11/06/2020. Unenhanced images of liver and spleen reveal no focal abnormality. There are surgical findings at the level of gastroesophageal junction and the gallbladder is surgically absent. No adrenal gland or pancreatic lesion is identified. Prominent left renal cyst and nonobstructing left renal calculi are present. No definite hydronephrosis or hydroureter is identified. Surgical findings are also seen in the right lower quadrant bowel loops. Urinary bladder is decompressed around a Bernardo catheter balloon. Seminal vesicles are unremarkable in appearance. There is no evidence of pathologically enlarged adenopathy within the abdomen or pelvis. There is mild lumbar degenerative disc and facet disease. IMPRESSION: No acute abdominal or pelvic abnormality is identified. Dictated by: Dictated on workstation # [id number]
--- NOTE | 2022-01-29 20:20 | Tele-ICU Progress Note ---
Subjective Time Seen by a Provider: 20:18 Sepsis Event Evaluation Sepsis Stage: Severe Sepsis Height, Weight, BMI Height: 5'10.00" Weight: 152lbs. 8.0oz. 69.315838bx; 22.00 BMI Method:Estimated Focused Exam Lactate Level 01/29/22 18:20: Lactic Acid Level 3.26*H Time of Focused Exam: 10:10 Lactic Acid Level Laboratory Tests Test 01/29/22 18:20 Lactic Acid Level 3.26 MMOL/L (0.50-2.00) *H Exam Exam Patient acknowledged, consented, and participated in this virtual visit which was conducted using real time audio/video Vital Signs Date Time Temp Pulse Resp B/P (MAP) Pulse Ox O2 Delivery O2 Flow Rate FiO2 01/29/22 20:05 36.8 01/29/22 18:13 Nasal Cannula 2.00 01/29/22 17:55 39.2 131 22 142/92 (109) 97 Height & Weight Height: 5'10.00" Weight: 152lbs. 8.0oz. 69.650970ii; 22.00 BMI Method:Estimated General Appearance: Chronically ill, Thin, Other (LETHARGIC; LOOKS ILL; COVERED IN DIARRHEAL STOOL AND URINE. ) HEENT: PERRL/EOMI, Other (ORAL MUCOSA EXTREMELY DRY; POST OP CHANGES AND SCARRING/SCLEROSIS OF CORNEAS BILATERALLY) Neck: Non Tender Respiratory: Normal Breath Sounds, No Accessory Muscle Use, No Respiratory Dis tress Cardiovascular: No Edema, No Murmur, Tachycardia (BUT HEART RATE DOWN FROM ARRIVAL) Capillary Refill: Less Than 3 Seconds Extremity: Pedal Edema (TRACE BILATERALLY, WITH MILD CHRONIC VENOUS STASIS CHANGES BILATERALLY) Neurologic/Psychiatric: Alert, No Motor/Sensory Deficits (GROSSLY INTACT), Other (AWAKE, ALERT, BUT LETHARGIC, GIVES MINIMAL ANSWERS AND DOES NOT VOLUNTEER ANY INFORMATION. FOLLOWS SIMPLE COMMANDS. ) Skin: Normal Color, Warm/Dry (VERY WARM) Other comments above exam is autofilled. exam unable to do remotely. please disregard above exam Results Lab Laboratory Tests 01/29/22 18:20 Assessment/Plan Assessment/Plan Cc chest pain Hpi Per reports, dw ed, hx is limited. I am Monitoring from remote location, therefore unable to do exam, and history and note is limited. Patient apparently arrived from home with chest pain x 3 days. Found to have a pneumonia and admitted with sepsis. Vitals stable. Pmhx Prostrate CA Allergies: adalimumab (Verified Allergy, Unknown, 03/07/14) infliximab (Verified Allergy, Unknown, NEAR , 03/07/14) meloxicam (Unverified Allergy, Unknown, 12/24/16) metoclopramide (Verified Allergy, Unknown, 03/07/14) aspirin (Verified Adverse Reaction, Unknown, 03/07/14) Was told by his physician not to take it due to his Crohn's disease.Pshx Unk Fam HX non contributory ROS as above Social denied all in ed Vitals Temp 39.2 Pulse 131 Resp 22 B/P (MAP) 142/92 (109) Pulse Ox 97 O2 Flow Rate 2.00 Exam Unable to complete. I am In a remote location in another state. Labs LA 3.26 WBC 17.7 See emar Imaging See Emar A/P 1. Sepsis 2. CAP Sepsis protocol Abx Cultures La q6 Ivf Repeat imaging Icu admission orders See orders Critical Care: Critically Ill Patient KAYLA HERNANDEZ DO Jan 29, 2022 20:20
[2022-01-29] MEDS: NS IV 1000 ML 1,000 ML IV SCH (20:34)
[2022-01-29] MEDS ORDERED: EPINEPHrine 1 MG INJECTION 4 MG in NS (IVPB) 248 ML IV SCH (21:30)
[2022-01-29] MEDS ORDERED: NOREPINEPHRINE 8 MG/250 ML 250 ML IV SCH (21:30)
[2022-01-29] MEDS ORDERED: ONDANSETRON 4 MG/2 ML (SDV) Z0FRAN IV PRN (21:30)
[2022-01-29] MEDS ORDERED: LACTATED RINGERS 1,000 ML IV SCH ×2 (21:30)
[2022-01-29] MEDS ORDERED: RT-ALBUTEROL SULF 2.5 MG/3 ML PRE-MIX VIAL INH PRN (22:45)
[2022-01-30] VITALS (17 sets, daily range): BP systolic 113–141; BP diastolic 66–95
[2022-01-30] MEDS: ACETAMINOPHEN 500 MG TAB (TYLENOL) PO PRN ×2 (00:08→15:35)
[2022-01-30] MEDS: NS IV 1000 ML 1,000 ML IV SCH ×3 (00:47→19:56)
[2022-01-30] MEDS: VASOPRESSIN INJECTION 20 UNIT in NS (IVPB) 100 ML IV SCH ×2 (00:57→08:37)
[2022-01-30] MEDS: fentaNYL INJ 100 MCG/2 ML AMP IV PRN ×4 (02:03→15:41)
[2022-01-30] MEDS: RT-ALBUTEROL SULF 2.5 MG/3 ML PRE-MIX VIAL INH SCH ×6 (02:35→21:57)
[2022-01-30 04:36] LABS: EOSINOPHILS % (AUTO) 0 % (0-10); HEMATOCRIT 32 % (40-54)
[2022-01-30 04:39] LABS: BASOPHILS % (AUTO) 0 % (0-10); HEMOGLOBIN 10.4 g/dL (13.3-17.7); LYMPHOCYTES # (AUTO) 0.9 10^3/uL (1.0-4.0); LYMPHOCYTES % (AUTO) 8 % (12-44); MEAN CORPUSCULAR HEMOGLOBIN 32 pg (25-34); MEAN CORPUSCULAR HGB CONC 33 g/dL (32-36); MEAN CORPUSCULAR VOLUME 98 fL (80-99); MONOCYTES # (AUTO) 0.3 10^3/uL (0.0-1.0); MONOCYTES % (AUTO) 3 % (0-12); NEUTROPHILS # (AUTO) 9.9 10^3/uL (1.8-7.8); NEUTROPHILS % (AUTO) 89 % (42-75); PLATELET COUNT 108 10^3/uL (130-400); WHITE BLOOD COUNT 11.1 10^3/uL (4.3-11.0)
[2022-01-30 04:48] LABS: ALBUMIN 2.6 GM/DL (3.2-4.5); POTASSIUM 3.6 MMOL/L (3.6-5.0)
[2022-01-30 04:49] LABS: CALCIUM 8.5 MG/DL (8.5-10.1)
[2022-01-30 04:50] LABS: TOTAL PROTEIN 5.4 GM/DL (6.4-8.2)
[2022-01-30 04:52] LABS: BILIRUBIN,TOTAL 0.9 MG/DL (0.1-1.0)
[2022-01-30 04:54] LABS: CREATININE SERUM 1.22 MG/DL (0.60-1.30)
[2022-01-30 04:56] LABS: MAGNESIUM 1.7 MG/DL (1.6-2.4)
[2022-01-30] MEDS ORDERED: KCL 20 MEQ TAB (K-DUR) PO SCH (06:00)
[2022-01-30] MEDS ORDERED: MAGNESIUM 1 GM/100 ML IVPB 100 ML IV SCH (06:00)
[2022-01-30] MEDS ORDERED: POTASSIUM CL 10MEQ/50ML IVPB 50 ML IV SCH (06:00)
[2022-01-30] MEDS: MAGNESIUM 1 GM/100 ML IVPB 100 ML IV SCH ×2 (06:03→07:54)
[2022-01-30] MEDS: POTASSIUM CL 10MEQ/50ML IVPB 50 ML IV SCH ×2 (06:04→07:54)
[2022-01-30] MEDS ORDERED: CATHETER FLUSH 10 ML SYR IVP PRN (06:30)
--- NOTE | 2022-01-30 08:29 | History & Physical ---
History of Present Illness History of Present Illness Reason for visit/HPI PT IS A 71 Y/O MALE WHO IS KNOWN TO ME FROM CLINIC. CATALINA HAS HISTORY OF METASTATIC PROSTATE CANCER WITH MOST RECENT PET SCAN SHOWED HYPERMETABOLIC ACTIVITY OF THESE NODES. PT APPARENTLY HAS BEEN HAVING SHORTNESS OF BREATH THAT HAS PROGRESSED OVER THE PAST FEW DAYS CULMINATING IN AN EMERGENT TRANSFER TO THE ER FOR EVALUATION. HE WAS FOUND TO BE SEPTIC AND HAVE A LARGE OBSTRUCTIVE APPEARING PNEUMONIA ON IMAGING. Date of Admission Jan 29, 2022 at 19:15 Date Seen by a Provider: Jan 30, 2022 Time Seen by a Provider: 08:20 Attending Physician Red Becerra MD Admitting Physician Red Becerra MD Consult Allergies and Home Medications Allergies Coded Allergies: adalimumab (Verified Allergy, Unknown, 03/07/14) infliximab (Verified Allergy, Unknown, NEAR , 03/07/14) meloxicam (Unverified Allergy, Unknown, 12/24/16) metoclopramide (Verified Allergy, Unknown, 03/07/14) aspirin (Verified Adverse Reaction, Unknown, 03/07/14) Was told by his physician not to take it due to his Crohn's disease. Patient Home Medication List Home Medication List Reviewed: Yes Alprazolam (Alprazolam) 0.5 Mg Tablet, 0.5 MG PO TID PRN for ANXIETY, (Reported) Entered as Reported by: OTTO GONZALEZ on 01/30/221402 Last Action: Continued Cholecalciferol (Vitamin D3) (Vitamin D3) 25 Mcg Capsule, 25 MCG PO, (Reported) Entered as Reported by: OTTO GONZALEZ on 01/30/221402 Last Action: Held Cyanocobalamin (Vitamin B-12) (Vitamin B-12) 1,000 Mcg Tab.subl, 500 MG PO DAILY, (Reported) Entered as Reported by: OTTO GONZALEZ on 01/30/221402 Last Action: Held Hydrocodone/Acetaminophen (Hydrocodone-Acetamin 10-325 mg) 1 Each Tablet, 1-2 EACH PO QID PRN for PAIN-MODERATE (5-7), (Reported) Entered as Reported by: JEANNETTE BROWN on 12/29/20 1315 Last Action: Held Multivitamin/Iron/Folic Acid (Centrum Adults Tablet) 1 Each Tablet, 1 EACH PO DAILY, (Reported) Entered as Reported by: OTTO GONZALEZ on 01/30/221403 Last Action: Held Olmesartan Medoxomil (Olmesartan Medoxomil) 40 Mg Tablet, 40 MG PO DAILY, (Reported) Entered as Reported by: OTTO GONZALEZ on 01/30/221402 Last Action: Held Oxycodone HCl (Oxycontin) 30 Mg Tab.er.12h, 30 MG PO Q12H, (Reported) Entered as Reported by: OTTO GONZALEZ on 01/30/221402 Last Action: Converted Discontinued Medications Alprazolam (Xanax) 1 Mg Tablet, 1 MG PO PRN, (Reported) Discontinued Reason: No Longer Taking Entered as Reported by: JEANNETTE BROWN on 12/29/201314 Last Action: Discontinued Multivit-Min/FA/Lycopene/Lut (Centrum Silver Tablet) 1 Each Tablet, 1 EACH PO DAILY, (Reported) Discontinued Reason: No Longer Taking Entered as Reported by: JEANNETTE BROWN on 12/29/201314 Last Action: Discontinued Mv-Mn/Iron/FA/Herbal Cmplx#190 (Vitamin D3 Complete Caplet) 1 Each Tablet, 1 EACH PO DAILY, (Reported) Discontinued Reason: No Longer Taking Entered as Reported by: JEANNETTE BROWN on 12/29/201314 Last Action: Discontinued Olmesartan/Hydrochlorothiazide (Benicar Hct 40-12.5 mg Tablet) 1 Each Tablet, 1 EACH PO DAILY, (Reported) Discontinued Reason: No Longer Taking Entered as Reported by: JEANNETTE BROWN on 12/29/201314 Last Action: Discontinued Omeprazole (Omeprazole) 20 Mg Capsule.dr, 20 MG PO DAILY, (Reported) Discontinued Reason: No Longer Taking Entered as Reported by: JEANNETTE BROWN on 12/29/201314 Last Action: Discontinued Past Jyjypnb-Rxzklb-Fntfyy Hx Patient Social History Marrital Status: Living Status: LIVES ALONE Employed/Student: retired Tobacco Use?: No Smoking Status: Never a Smoker Use of E-Cig and/or Vaping dev: No Substance use?: No Alcohol Use?: No Pt feels they are or have been: No Immunizations Up To Date Date of Influenza Vaccine: Aug 01, 2021 First/Initial COVID19 Vaccinat: 2021 Second COVID19 Vaccination Harlan: 2020 Tetanus Booster (TDap): Unknown Date of Pneumonia Vaccine: Nov 26, 2009 Seasonal Allergies Seasonal Allergies: No Current Status Advance Directives: Yes Communicates: Verbally Primary Language: Ecuadorean Preferred Spoken Language: Ecuadorean Is interpretation needed?: No Sensory deficits: Vision impairment Implanted or Applied Medical D: None Past Medical History Surgeries: Abdominal, Bowel Surgery, Cardiac (CATH), Eye Surgery, Gallbladder, Orthopedic, Renal Hypertension Headaches /Migraines, Stroke, TIA Sexually Transmitted Disease: No Kidney Stones Gastroesophageal Reflux, Crohns Disease, Chronic Diarrhea, Ulcer Arthritis Diabetes, Non-Insulin dep Cataract, Glaucoma Loss of Vision: Denies Hearing Impairment: Denies Prostate Did You Recieve Any Treatments: Yes PT HAS BEEN SLOW TO PROCEDE WITH TREATMENT - MISSED HIS INITIAL RADIATION TREATMENTS, HAD TO ESTABLISH WITH A NEW PROVIDER, REPORTS "CHEMO INJECTIONS" STARTING RECENTLY Sleep Difficulties, Anxiety, Suicide Attempts, Depression Blood Disorders: No Adverse Reaction/Blood Tranf: No 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, crohn's disease, malnutrition, HTN, glaucoma, HTN, tachycardia, osteoarthritis Family Medical History Reviewed and Corrections made Family history: Cardiovascular disease 03 FATHER 03 MOTHER 09 BROTHER 09 BROTHER 09 BROTHER 09 BROTHER Family history: Coronary thrombosis 09 BROTHER 09 BROTHER 09 BROTHER 09 BROTHER Family history: Diabetes mellitus 03 FATHER Family history: Hypertension 09 SISTER History of - respiratory disease 03 MOTHER Myocardial infarction 09 BROTHER 09 BROTHER 09 BROTHER 09 BROTHER Heart Disease, COPD, Diabetes, Hypertension PAST SURGICAL HISTORY: -PARTIAL GASTRECTOMY AND VAGUS NERVE REMOVED -BOWEL RESECTION 1976 -CHOLECYSTECTOMY 01/2016 -BILATERAL CATARACT SURGERY -KIDNEY STONE REMOVAL/STONE BASKET REMOVAL PLUS LITHOTRIPSY -PROSTATE BIOPSY -CARDIAC CATH 02/2014--MILD CAD, SIGNIFICANT HYPERTENSIVE CHANGES, NO INTERVENTION -LEFT KNEE SCOPE X 2 Review of Systems Constitutional: chills, fever, malaise, weakness, weight loss EENTM: No hoarseness, No throat pain Respiratory: cough, dyspnea on exertion (PAIN WITH MOVEMENT OR DEEP INSPIRATION - PAIN IN RIGHT POSTERIOR RIBS), short of breath Cardiovascular: chest pain (RIGHT POSTERIOR RIBS) Gastrointestinal: RLQ, abdominal pain; No heartburn, No nausea, No vomiting Genitourinary: no symptoms reported Musculoskeletal: back pain, muscle weakness Skin: no symptoms reported Psychiatric/Neurological: Anxiety, Depressed, Weakness All Other Systems Reviewed Negative Unless Noted: Yes Physical Exam Vital Signs Vital Signs - First Documented 01/29/22 01/29/22 17:55 18:13 Temp 39.2 Pulse 131 Resp 22 B/P (MAP) 142/92 (109) Pulse Ox 97 O2 Delivery Nasal Cannula O2 Flow Rate 2.00 Capillary Refill : Less Than 3 Seconds Height, Weight, BMI Height: 5'10.00" Weight: 152lbs. 8.0oz. [id number]; 21.40 BMI Method:Estimated General Appearance: Mild Distress (DUE TO PAIN WITh AttEMPTED MOVEMENT OF BODY), Thin HEENT: PERRL/EOMI, Pharynx Normal Neck: Full Range of Motion, Supple Respiratory: Chest Non Tender, No Accessory Muscle Use, No Respiratory Distre ss, Crackles (RIGHT MID LUNG TO BASE), Decreased Breath Sounds (POOR EFFORT) Cardiovascular: Systolic Murmur, Tachycardia Gastrointestinal: Normal Bowel Sounds, No Organomegaly, No Pulsatile Mass, Non Tender, Soft Rectal: Deferred Back: No CVA Tenderness Extremity: Normal Capillary Refill, Non Tender, No Pedal Edema Neurologic/Psychiatric: Alert, Oriented x3, No Motor/Sensory Deficits, Normal Mood/Affect Skin: Normal Color, Warm/Dry Lymphatic: No Adenopathy Assessment/Plan Assessment and Plan SEPSIS RESPIRATORY DISTRESS RIGHT UPPER LOBE PNEUMONIA HYPOTENSION WITH CHRONIC HYPERTENSION GENERALIZED WEAKNESS CHRONIC CROHN'S DISEASE METASTATIC PROSTATE CANCER LEUKOCYTOSIS ELEVATED PROCALCITONIN ELEVATED CK MILD HYPONATREMIA ACUTE RENAL INSUFFICIENCY ANEMIA THROMBOCYTOPENIA MALNOURISHMENT UNDERWEIGHT CHRONIC PAIN SYNDROME SEPSIS WITH RESPIRATORY DISTRESS DUE TO RIGHT UPPER LOBE PNEUMONIA - PT ON SEPSIS PROTOCOL - CONSULT PLACED INITIALLY TO EICU - PT WILL BE TRANSFERRED OUT OF ICU TO 4TH FLOOR TODAY - PT IS STABLE FOR FLOOR MANAGEMENT. - PT CONTINUES WITH COMMUNITY ACQUIRED PNEUMONIA PROTOCOL - REPEAT IMAGING TOMORROW MORNING. - WILL CHECK REPEAT CT SCAN OF CHEST FRIDAY MORNING. - MONITOR LABS. HYPOTENSION WITH CHRONIC HYPERTENSION - HYPOTENSION IMPROVED, MONITOR, WILL RESTART HOME MEDS TOMORROW. GENERALIZED WEAKNESS WITH MALNOURISHMENT, WEIGHT LOSS, AND CHRONIC BACK PAIN - PLANNING ON THERAPY WHEN PT MORE STABLE AND WOULD LIKE TO SEE DAPHNE GO TO A USP FOR SKILLED REHAB - WE WILL LOOK INTO [facility] ON DISCHARGE. CHRONIC CROHN'S DISEASE - SUPPORTIVE CARE METASTATIC PROSTATE CANCER - WE WILL SEND A COPY OF HIS NOTE TO HIS PRIMARY ONCOLOGIST. LEUKOCYTOSIS ELEVATED PROCALCITONIN ELEVATED CK - MONTIOR LABS MILD HYPONATREMIA - IMPROVED THIS MORNING REPEAT LABS IN MORNING. ACUTE RENAL INSUFFICIENCY - IMPROVED WITH HYDRATION ANEMIA AND THROMBOCYTOPENIA - WORSENING TODAY - WILL MONITOR H AND H CHRONIC PAIN SYNDROME - RESUME HOME OXYCONTIN DOSING TO PREVENT WITHDRAWALS. DVT PROPHYLAXIS WITH SCD'S HOLD OFF ON LOVENOX RIGHT NOW DUE TO THROMBOCYTOPENIA GI PROHYLAXIS WITH PPI THERAPY Admission Diagnosis SEPSIS RESPIRATORY DISTRESS RIGHT UPPER LOBE PNEUMONIA HYPOTENSION WITH CHRONIC HYPERTENSION GENERALIZED WEAKNESS CHRONIC CROHN'S DISEASE METASTATIC PROSTATE CANCER LEUKOCYTOSIS ELEVATED PROCALCITONIN ELEVATED CK MILD HYPONATREMIA ACUTE RENAL INSUFFICIENCY ANEMIA THROMBOCYTOPENIA MALNOURISHMENT UNDERWEIGHT CHRONIC PAIN SYNDROME Admission Status: Inpatient Order (span 2 midnights) Reason for Inpatient Admission: INPT ADMISSION FOR PNEUMONIA, WILL REQUIRE AT LEAST 2-3 MIDNIGHTS IN THE HOSPITAL FOR STABILIZATION AND MANAGEMENT RED BECERRA MD Jan 30, 2022 08:29
--- NOTE | 2022-01-30 11:29 | Physical Therapy Evaluation ---
PT Evaluation-General Medical Diagnosis Admission Date Jan 29, 2022 at 19:15 Medical Diagnosis: weakness, gait instability Onset Date: Jan 29, 2022 Therapy Diagnosis Therapy Diagnosis: impaired mobility, strength, endurance Height/Weight Height (Feet): 5 Height (Inches): 10.00 Weight (Pounds): 152 Weight (Ounces): 8.0 Precautions Precautions/Isolations: Fall Prevention, Standard Precautions Referral Physician: Mariam Reason for Referral: Evaluation/Treatment Medical History Additional Medical History Past Medical History Surgeries: Abdominal, Bowel Surgery, Cardiac (CATH), Eye Surgery, Gallbladder, Orthopedic, Renal Hypertension Headaches /Migraines, Stroke, TIA Sexually Transmitted Disease: No Kidney Stones Gastroesophageal Reflux, Crohns Disease, Chronic Diarrhea, Ulcer Arthritis Diabetes, Non-Insulin dep Cataract, Glaucoma Loss of Vision: Denies Hearing Impairment: Denies Prostate Did You Recieve Any Treatments: Yes Current History has metastatic prostate CA Reviewed History: Yes Social History Home: Single Level Current Living Status: Children Entry Into Home: Ramp Patient states his son lives with him but he works and is gone a lot. Prior Prior Level of Function SCALE: Activities may be completed with or without assistive devices. 5-Ugmcuiogdi-mypkddc completes the activity by him/herself with no assistance from a helper. 5-Set-up or Clean-up Assistance-helper sets up or cleans up; patient completes activity. [place] assists only prior to or following the activity. 4-Supervision or Touching Assistance-helper provides verbal cues and/or touching/steadying and/or contact guard assistance as patient completes activity. Assistance may be provided throughout the activity or intermittently. 3-Partial/Moderate Assistance-helper does LESS THAN HALF the effort. [place] li fts, holds or supports trunk or limbs, but provides less than half the effort. 2-Substantial/Maximal Assistance-helper does MORE THAN HALF the effort. [place] lifts or holds trunk or limbs and provides more than half the effort. 3-Lpvsrgice-hajsnt does ALL the effort. Patient does none of the effort to complete the activity. Or, the assistance of 2 or more helpers is required for the patient to complete the activity. If activity was not attempted, code reason: 7-Patient Refused. 9-Not Applicable-not attempted and the patient did not perform the activity before the current illness, exacerbation or injury. 10-Not Attempted due to Environmental Limitations-(lack of equipment, weather restraints, etc.). 88-Not Attempted due to Medical Conditions or Safety Concerns. Bed Mobility: 6 Transfers (B,C,W/C): 6 Gait: 6 Indoor Mobility (Ambulation): Independent Prior Devices Use: None Patient states he did use a cane the day before coming to the hospital PT Evaluation-Current Subjective Patient in bed pre tx, agrees to PT but states he doesn't want to get out of bed at this time. Patient encouraged to get into his recliner but he continues to refuse. Pt/Family Goals to be independent at home Objective Patient Orientation: Person, Place, Situation ROM/Strength ROM Lower Extremities WNL Strength Lower Extremities grossly 4+/5 BLE Treatment BLE supine exercises x15 (AP, QS, GS, HS, SLR) Assessment/Needs Patient in bed post tx with nurse call, phone, tray, all needs met. Patient has impaired mobility, strength, endurance. He refused to get out of bed today. Rehab Potential: Fair PT Skilled Nursing Goals Skilled Nursing Goals PT Assistant Auto Center Manager Goals Time Frame: Feb 06, 2022 Roll Left & Right (QC): 6 Sit to Lying (QC): 6 Lying-Sitting on Side/Bed(QC): 6 Sit to Stand (QC): 4 Chair/Lnk-co-Unarl Xfer(QC): 4 Walk 10 feet (QC): 4 Walk 50ft with 2 Turns (QC): 4 PT Plan Problem List Problem List: Activity Tolerance, Functional Strength, Safety, Balance, Gait, Transfer, Bed Mobility, ROM Treatment/Plan Treatment Plan: Continue Plan of Care Treatment Plan: Bed Mobility, Education, Functional Activity Ajith, Functional Strength, Gait, Safety, Therapeutic Exercise, Transfers Treatment Duration: Feb 06, 2022 Frequency: 6 times per week Estimated Hrs Per Day: .25 hour per day Patient and/or Family Agrees t: Yes Safety Risks/Education Patient Education: Correct Positioning, Safety Issues Teaching Recipient: Patient Teaching Methods: Demonstration, Discussion Response to Teaching: Reinforcement Needed Discharge Recommendations Plan Patient will perform bed mobility and transfer training, balance and endurance training, functional strengthening, stair training, gait training, and education, to improve functional mobility and independence at home. Therapy Discharge Recommendati: Scheduled Assistance, Home & Family, Post Acute PT Time/GCodes Time In: 1100 Time Out: 1113 Total Billed Treatment Time: 13 Total Billed Treatment 1 visit EVM 13' TESSA KATZ PT Jan 30, 2022 11:29
--- NOTE | 2022-01-30 13:38 | Occupational Therapy Eval ---
OT Evaluation-General/PLF Medical Diagnosis Admission Date Jan 29, 2022 at 19:15 Medical Diagnosis: weakness, gait instability Onset Date: Jan 29, 2022 Therapy Diagnosis Therapy Diagnosis: reduced adl status, endurance, strength Height/Weight Height (Feet): 5 Height (Inches): 10.00 Weight (Pounds): 152 Weight (Ounces): 8.0 Precautions Precautions/Isolations: Fall Prevention, Standard Precautions Referral Physician: Mariam Referral Reason: Evaluation/Treatment Medical History Pertinent Medical History: Arthritis, CVA, DM, HTN Additional Medical History metastatic prostate cancer, chrohns disease, TIA Current History Pt presents to hospital with SOB that has progressed over last few days. He was found to be septic. Per patient he lives in a single story home with his son (who is not home very often). Pt was indep with adls and shared iadl responsibilities with his son. Pt reports that he owns a cane but only used it the day before he came into the hospital. Reviewed History: Yes Social History Home: Single Level Current Living Status: Children Entry Into Home: [facility] ADL-Prior Level of Function SCALE: Activities may be completed with or without assistive devices. 8-Jkotuuormy-kxtijee completes the activity by him/herself with no assistance from a helper. 5-Set-up or Clean-up Assistance-helper sets up or cleans up; patient completes activity. [place] assists only prior to or following the activity. 4-Supervision or Touching Assistance-helper provides verbal cues and/or touching/steadying and/or contact guard assistance as patient completes activity. Assistance may be provided throughout the activity or intermittently. 3-Partial/Moderate Assistance-helper does LESS THAN HALF the effort. [place] lifts, holds or supports trunk or limbs, but provides less than half the effort. 2-Substantial/Maximal Assistance-helper does MORE THAN HALF the effort. [place] lifts or holds trunk or limbs and provides more than half the effort. 8-Kjxsvbytt-rqklfs does ALL the effort. Patient does none of the effort to comp lete the activity. Or, the assistance of 2 or more helpers is required for the patient to complete the activity. If activity was not attempted, code reason: 7-Patient Refused. 9-Not Applicable-not attempted and the patient did not perform the activity before the current illness, exacerbation or injury. 10-Not Attempted due to Environmental Limitations-(lack of equipment, weather restraints, etc.). 88-Not Attempted due to Medical Conditions or Safety Concerns. Self Care: Independent Functional Cognition: Independent DME/Equipment: Bath Chair, Grab Bars, Tub/Shower OT Current Status Subjective Pt reports pain on R lateral side of abdomen. He reports related to cancer. Appearance Pt left supine in bed, all needs within reach. Mental Status/Objective Patient Orientation: Person, Place, Situation Attachments: Parsons Catheter, IV, Oxygen Current Glasses/Contacts: Yes Hearing Aids: No Dentures/Partials: Yes Hand Dominance: Right Upper Extremity ROM History of CVA with L hemiparesis, but able to complete full range with extra time. Upper Extremity Strength Not tested due to abdominal pain. Anticipate at least 3/5 throughout. ADL-Treatment Eating (QC): 5 Oral Hygiene (QC): 4 Toileting Hygiene (QC): 1 (parsons catheter) At OT arrival, pt observed eating while sitting upright in the bed. He politely declines moving to the chair despite education and encouragement. Pt reports difficulty swallowing secondary to not having his top dentures. He states that his daughter will be bringing them later in the day. Assist from OT to cut food into smaller pieces. Pt reports slight improvement post modification. Due to c/o significant fatigue and pain, pt declines all other adls. Pt is very conversational and appears disappointed when therapist had to leave. Education OT Patient Education: Correct positioning, Modified ADL techniques, Progress toward Goal/Update tx plan, Purpose of tx/functional activities, Safety issues Teaching Recipient: Patient Teaching Methods: Discussion Response to Teaching: Verbalize Understanding, Return Demonstration, Re inforcement Needed OT Prison Goals Office Services Manager Goals Time Frame: Feb 13, 2022 Eating (QC): 6 Oral Hygiene (QC): 5 Toileting Hygiene (QC): 4 Upper Body Dressing (QC): 4 Lower Body Dressing (QC): 4 On/Off Footwear (QC): 4 1=Demonstrate adherence to instructed precautions during ADL tasks. 2=Patient will verbalize/demonstrate understanding of assistive devices/modifications for ADL. 3=Patient will improve strength/tolerance for activity to enable patient to pe rform ADL's. OT Education/Plan Problem List/Assessment Assessment: Decreased Activ Tolerance, Decreased UE Strength, Impaired Funct Balance, Impaired I ADL's, Impaired Self-Care Skills Discharge Recommendations Plan/Recommendations: Continue POC Target Placement ongoing assessment Treatment Plan/Plan of Care Treatment,Training & Education: Yes Patient would benefit from OT for education, treatment and training to promote independence in ADL's, mobility, safety and/or upper extremity function for ADL' s. Plan of Care: ADL Retraining, Functional Mobility, Group Exercise/Act as Ind, UE Funct Exercise/Act Treatment Duration: Feb 13, 2022 Frequency: 3 times per week (3-5x/week) Estimated Hrs Per Day: .25 hour per day Agreement: Yes Rehab Potential: Fair Time/GCodes Start Time: 13:08 Stop Time: 13:27 Total Time Billed (hr/min): 19 Billed Treatment Time 1 visit Chloe Danielle OT Jan 30, 2022 13:38
[2022-01-30] MEDS ORDERED: OXYC30TA77 PO (14:03)
[2022-01-30] MEDS ORDERED: CYAN100015 PO (14:03)
[2022-01-30] MEDS ORDERED: CHOL10007 PO (14:03)
[2022-01-30] MEDS ORDERED: ALPR0.5T7 PO (14:03)
[2022-01-30] MEDS ORDERED: OLME40TA18 PO (14:03)
[2022-01-30] MEDS ORDERED: MULT-1067 PO (14:04)
[2022-01-30] MEDS ORDERED: NS IV 500 ML 500 ML IV ONE (16:00)
[2022-01-30] MEDS: cefTRIAXone 1 GM PRE-MIX 50 ML IV SCH (19:57)
[2022-01-30] MEDS: ACETAMINOPHEN 500 MG TAB (TYLENOL) PO SCH (20:00)
[2022-01-30] MEDS ORDERED: AZITHROMYCIN INJECTION 500 MG in NS (IVPB) 250 ML IV SCH (21:00)
[2022-01-30] MEDS ORDERED: IBUPROFEN 600 MG (MOTRIN) TAB PO SCH (21:00)
[2022-01-30] MEDS ORDERED: ALPRAZolam 0.5 MG (XANAX) TAB PO PRN (21:15)
[2022-01-30] MEDS: oxyCODONE ER 10 MG (OxyCONTIN CR) TAB PO SCH (21:47)
[2022-01-31] MEDS: RT-ALBUTEROL SULF 2.5 MG/3 ML PRE-MIX VIAL INH SCH ×7 (02:39→21:05)
[2022-01-31 03:58] VITALS: BP 129/65
[2022-01-31] MEDS: NS IV 1000 ML 1,000 ML IV SCH ×2 (04:45→05:34)
[2022-01-31 06:00] LABS: BASOPHILS % (AUTO) 0 % (0-10); HEMOGLOBIN 9.8 g/dL (13.3-17.7); MEAN CORPUSCULAR VOLUME 99 fL (80-99); MEAN PLATELET VOLUME 11.6 fL (9.0-12.2)
[2022-01-31 06:02] LABS: EOSINOPHILS % (AUTO) 0 % (0-10); HEMATOCRIT 30 % (40-54); LYMPHOCYTES # (AUTO) 0.9 10^3/uL (1.0-4.0); LYMPHOCYTES % (AUTO) 11 % (12-44); MEAN CORPUSCULAR HEMOGLOBIN 32 pg (25-34); MEAN CORPUSCULAR HGB CONC 32 g/dL (32-36); MONOCYTES # (AUTO) 0.5 10^3/uL (0.0-1.0); MONOCYTES % (AUTO) 6 % (0-12); NEUTROPHILS % (AUTO) 83 % (42-75); PLATELET COUNT 125 10^3/uL (130-400); WHITE BLOOD COUNT 8.4 10^3/uL (4.3-11.0)
[2022-01-31 06:20] LABS: ALBUMIN 2.7 GM/DL (3.2-4.5); POTASSIUM 3.2 MMOL/L (3.6-5.0)
[2022-01-31 06:21] LABS: CALCIUM 8.7 MG/DL (8.5-10.1)
[2022-01-31 06:22] LABS: TOTAL PROTEIN 5.5 GM/DL (6.4-8.2)
[2022-01-31 06:24] LABS: BILIRUBIN,TOTAL 0.4 MG/DL (0.1-1.0)
[2022-01-31 06:26] LABS: CREATININE SERUM 1.12 MG/DL (0.60-1.30)
[2022-01-31 07:58] VITALS: BP 134/69
[2022-01-31] MEDS ORDERED: POTASSIUM CHLORIDE INJ 20 MEQ in NS IV 1000 ML 1,000 ML IV SCH (08:25)
--- NOTE | 2022-01-31 08:27 | Progress Note ---
Subjective Subjective Date Seen by Provider: Jan 31, 2022 Time Seen by Provider: 08:18 PT REPORTS THAT HE IS FEELING A LITTLE BETTER TODAY - STILL HAVING PAIN IN HIS CHEST WALL ON THE RIGHT. HE REPORTS THAT HIS SHORTNESS OF BREATH IS BETTER WELL, HIS APPETITE IS IMPROVED. Review of Systems General: No Chills, No Fatigue HEENT: No Head Aches Pulmonary: Dyspnea, Cough Cardiovascular: No: Chest Pain Gastrointestinal: No: Nausea, Abdominal Pain Genitourinary: No Dysuria Neurological: Weakness; No: Confusion All Other Systems Reviewed All Other Systems Reviewed: Yes Objective Exam Vital Signs Vital Signs Date Time Temp Pulse Resp B/P (MAP) Pulse Ox O2 Delivery O2 Flow Rate FiO2 01/31/22 08:21 Nasal Cannula 01/31/22 07:58 37.4 91 20 134/69 (90) 93 Nasal Cannula 2.00 01/31/22 07:47 Room Air 0.00 01/31/22 07:38 97 Nasal Cannula 2.00 01/31/22 03:58 36.6 88 16 129/65 (86) 96 Nasal Cannula 2.00 01/31/22 02:39 94 Nasal Cannula 2.00 01/31/22 01:00 76 01/30/22 23:51 36.7 84 18 124/66 (85) 94 Nasal Cannula 2.00 01/30/22 21:57 95 Nasal Cannula 2.00 01/30/22 21:30 96 Nasal Cannula 2.00 01/30/22 20:27 37.6 108 20 132/75 (94) 95 Nasal Cannula 2.00 01/30/22 19:23 96 Nasal Cannula 2.00 01/30/22 19:00 101 01/30/22 16:17 37.8 01/30/22 16:16 37.8 01/30/22 15:53 39.0 107 18 136/74 (94) 96 Nasal Cannula 2.00 01/30/22 15:35 39.0 01/30/22 15:33 98 Nasal Cannula 2.00 01/30/22 13:00 97 01/30/22 12:05 37.9 134 20 150/87 98 Nasal Cannula 2.00 01/30/22 11:00 105 Nasal Cannula 2.00 01/30/22 10:48 93 Nasal Cannula 1.00 01/30/22 10:45 98 24 133/85 (110) 85 Nasal Cannula 2.00 01/30/22 10:30 112 24 127/94 (103) 98 Nasal Cannula 2.00 01/30/22 10:15 115 11 127/93 (101) 99 Nasal Cannula 2.00 01/30/22 10:00 112 24 133/85 94 Nasal Cannula 2.00 01/30/22 10:00 112 15 117/68 (86) 100 Nasal Cannula 2.00 01/30/22 09:45 111 26 126/83 (98) 97 Nasal Cannula 2.00 01/30/22 09:30 115 39 134/95 (111) 95 Nasal Cannula 2.00 01/30/22 09:15 112 25 124/80 (92) 95 Nasal Cannula 2.00 01/30/22 09:00 112 25 126/83 96 Nasal Cannula 2.00 01/30/22 09:00 114 25 139/86 (105) 96 Nasal Cannula 2.00 01/30/22 08:45 113 27 141/87 (100) 97 Nasal Cannula 2.00 01/30/22 08:37 108 117/72 I & O 01/31/22 07:00 Intake Total 2150 ml Output Total 3000 ml Balance -850 ml General Appearance: No Apparent Distress, Thin HEENT: PERRL/EOMI, Pharynx Normal Neck: Full Range of Motion, Supple Respiratory: Chest Non Tender, No Accessory Muscle Use, No Respiratory Distress, Crackles (RIGHT MID LUNG TO BASE), Decreased Breath Sounds (POOR EFFORT) Cardiovascular: Systolic Murmur, Tachycardia Gastrointestinal: Normal Bowel Sounds, No Organomegaly, No Pulsatile Mass, Non Tender, Soft Rectal: Deferred Genital/Rectal: Other (INCONTINENT OF URINE AND STOOL; SCROTUM VERY ERYTHEMATOUS/MACERATED DUE TO INCONTINENCE. NO ULCERS. ) Back: No CVA Tenderness Extremity: Normal Capillary Refill, Non Tender, No Pedal Edema Neurologic/Psychiatric: Alert, Oriented x3, No Motor/Sensory Deficits, Normal Mood/Affect Skin: Normal Color, Warm/Dry Lymphatic: No Adenopathy Results Lab Laboratory Tests 01/31/22 05:31: White Blood Count 8.4, Red Blood Count 3.07L, Hemoglobin 9.8L, Hematocrit 30L, Mean Corpuscular Volume 99, Mean Corpuscular Hemoglobin 32, Mean Corpuscular Hemoglobin Concent 32, Red Cell Distribution Width 12.6, Platelet Count 125L, Mean Platelet Volume 11.6, Immature Granulocyte % (Auto) 1, Neutrophils (%) (Auto) 83H, Lymphocytes (%) (Auto) 11L, Monocytes (%) (Auto) 6, Eosinophils (%) (Auto) 0, Basophils (%) (Auto) 0, Neutrophils # (Auto) 7.0, Lymphocytes # (Auto) 0.9L, Monocytes # (Auto) 0.5, Eosinophils # (Auto) 0.0, Basophils # (Auto) 0.0, Immature Granulocyte # (Auto) 0.1, Percent Immature Platelet Fraction 5.8, Sodium Level 140, Potassium Level 3.2L, Chloride Level 112H, Carbon Dioxide Level 18L, Anion Gap 10, Blood Urea Nitrogen 16, Creatinine 1.12, Estimat Glomerular Filtration Rate 71, BUN/Creatinine Ratio 14, Glucose Level 148H, Calcium Level 8.7, Corrected Calcium 9.7, Total Bilirubin 0.4, Aspartate Amino Transf (AST/SGOT) 18, Alanine Aminotransferase (ALT/SGPT) 14, Alkaline Phosphatase 68, Total Protein 5.5L, Albumin 2.7L Microbiology 01/29/22 Blood Culture - Preliminary, Resulted No growth 01/29/22 Urine Culture - Final, Complete NO GROWTH Assessment/Plan Assessment/Plan Admission Dx SEPSIS RESPIRATORY DISTRESS RIGHT UPPER LOBE PNEUMONIA HYPOTENSION WITH CHRONIC HYPERTENSION GENERALIZED WEAKNESS CHRONIC CROHN'S DISEASE METASTATIC PROSTATE CANCER LEUKOCYTOSIS ELEVATED PROCALCITONIN ELEVATED CK MILD HYPONATREMIA ACUTE RENAL INSUFFICIENCY ANEMIA THROMBOCYTOPENIA MALNOURISHMENT UNDERWEIGHT CHRONIC PAIN SYNDROME Assessment and Plan SEPSIS RESPIRATORY DISTRESS RIGHT UPPER LOBE PNEUMONIA HYPOTENSION WITH CHRONIC HYPERTENSION GENERALIZED WEAKNESS CHRONIC CROHN'S DISEASE METASTATIC PROSTATE CANCER LEUKOCYTOSIS ELEVATED PROCALCITONIN ELEVATED CK MILD HYPONATREMIA ACUTE RENAL INSUFFICIENCY ANEMIA THROMBOCYTOPENIA MALNOURISHMENT UNDERWEIGHT CHRONIC PAIN SYNDROME SEPSIS WITH RESPIRATORY DISTRESS DUE TO RIGHT UPPER LOBE PNEUMONIA - PT ON SEPSIS PROTOCOL - CONSULT PLACED INITIALLY TO EICU - PT WILL BE TRANSFERRED OUT OF ICU TO 4TH FLOOR TODAY - PT IS STABLE FOR FLOOR MANAGEMENT. - PT CONTINUES WITH COMMUNITY ACQUIRED PNEUMONIA PROTOCOL - REPEAT IMAGING TOMORROW MORNING. - MONITOR LABS. HYPOTENSION WITH CHRONIC HYPERTENSION - HYPOTENSION IMPROVED, MONITOR, WILL RESTART HOME MEDS TOMORROW. GENERALIZED WEAKNESS WITH MALNOURISHMENT, WEIGHT LOSS, AND CHRONIC BACK PAIN - PLANNING ON THERAPY WHEN PT MORE STABLE AND WOULD LIKE TO SEE DAPHNE GO TO A SKILLED NURSING FOR SKILLED REHAB - WE WILL LOOK INTO [facility] ON DISCHARGE. CHRONIC CROHN'S DISEASE - SUPPORTIVE CARE METASTATIC PROSTATE CANCER - WE WILL SEND A COPY OF HIS NOTE TO HIS PRIMARY ONCOLOGIST. LEUKOCYTOSIS ELEVATED PROCALCITONIN ELEVATED CK - MONTIOR LABS MILD HYPONATREMIA - IMPROVED THIS MORNING REPEAT LABS IN MORNING. ACUTE RENAL INSUFFICIENCY - IMPROVED WITH HYDRATION ANEMIA AND THROMBOCYTOPENIA - STABLE, MONITOR CBC CHRONIC PAIN SYNDROME - RESUMED HOME OXYCONTIN DOSING TO PREVENT WITHDRAWALS. DVT PROPHYLAXIS WITH SCD'S HOLD OFF ON LOVENOX RIGHT NOW DUE TO THROMBOCYTOPENIA GI PROHYLAXIS WITH PPI THERAPY Admission Dx SEPSIS RESPIRATORY DISTRESS RIGHT UPPER LOBE PNEUMONIA HYPOTENSION WITH CHRONIC HYPERTENSION GENERALIZED WEAKNESS CHRONIC CROHN'S DISEASE METASTATIC PROSTATE CANCER LEUKOCYTOSIS ELEVATED PROCALCITONIN ELEVATED CK MILD HYPONATREMIA ACUTE RENAL INSUFFICIENCY ANEMIA THROMBOCYTOPENIA MALNOURISHMENT UNDERWEIGHT CHRONIC PAIN SYNDROME Clinical Quality Measures Admission Status Admission Dx SEPSIS RESPIRATORY DISTRESS RIGHT UPPER LOBE PNEUMONIA HYPOTENSION WITH CHRONIC HYPERTENSION GENERALIZED WEAKNESS CHRONIC CROHN'S DISEASE METASTATIC PROSTATE CANCER LEUKOCYTOSIS ELEVATED PROCALCITONIN ELEVATED CK MILD HYPONATREMIA ACUTE RENAL INSUFFICIENCY ANEMIA THROMBOCYTOPENIA MALNOURISHMENT UNDERWEIGHT CHRONIC PAIN SYNDROME DVT/VTE Risk/Contraindication: Contraindications-Pharm: Other *list below* Other: HOLDING LOVENOX DUE TO ACute DROP IN PLTS RED HERNDON MD Jan 31, 2022 08:27
[2022-01-31] MEDS: oxyCODONE ER 10 MG (OxyCONTIN CR) TAB PO SCH ×2 (08:38→19:51)
[2022-01-31] MEDS: fentaNYL INJ 100 MCG/2 ML AMP IV PRN ×2 (08:38→15:44)
[2022-01-31] MEDS: ACETAMINOPHEN 500 MG TAB (TYLENOL) PO SCH ×3 (08:38→19:50)
[2022-01-31] MEDS: PANTOPRAZOLE 40 MG (PROTONIX) VIAL IV SCH (08:39)
[2022-01-31] MEDS: NS W/KCL 20 MEQ/L 1,000 ML IV SCH ×2 (08:45→18:27)
--- NOTE | 2022-01-31 09:06 | Diagnostic Imaging Report ---
INDICATION: Pneumonia. Compared with radiograph 01/29/2022. FINDINGS: There has been significant improvements in right perihilar and mid lung infiltrate with no adverse development. Continued follow-up to resolution recommended. Infiltrate is predominantly within the right middle lobe but also juxta fissural in the right upper lobe. Tiny pleural effusions in the posterior sulci seen in the lateral radiograph. No pneumothorax. IMPRESSION: Improvements in right lung pneumonia, similar tiny pleural effusions. No adverse development. Continued follow-up recommended. Dictated by: Dictated on workstation # [id number]
--- NOTE | 2022-01-31 09:32 | Occupational Ther Daily Note ---
OT Current Status-Daily Note Subjective Pt alert, sitting up in recliner. Pt agrees to therapy. No c/o pain at this time. Mental Status/Objective Patient Orientation: Person, Place, Time, Situation Attachments: IV, Oxygen (2L) ADL-Treatment Pt reported that he needed max A x2 for transfer from bed to recliner. Pt able to open containers and packages to set up own meal. Pt uses regular utensils to cut food and eat. Therapy Code Descriptions/Definitions Functional [place] Measure: 0=Not Assessed/NA 4=Minimal Assistance 1=Total Assistance 5=Supervision or Setup 2=Maximal Assistance 6=Modified [place] 3=Moderate Assistance 7=Complete IndependenceSCALE: Activities may be completed with or without assistive devices. 7-Heibcysepi-sndtofs completes the activity by him/herself with no assistance f rom a helper. 5-Set-up or Clean-up Assistance-helper sets up or cleans up; patient completes activity. [place] assists only prior to or following the activity. 4-Supervision or Touching Assistance-helper provides verbal cues and/or touching/steadying and/or contact guard assistance as patient completes activity. Assistance may be provided throughout the activity or intermittently. 3-Partial/Moderate Assistance-helper does LESS THAN HALF the effort. [place] lifts, holds or supports trunk or limbs, but provides less than half the effort. 2-Substantial/Maximal Assistance-helper does MORE THAN HALF the effort. [place] lifts or holds trunk or limbs and provides more than half the effort. 2-Bskwulslw-hkobmo does ALL the effort. Patient does none of the effort to complete the activity. Or, the assistance of 2 or more helpers is required for the patient to complete the activity. If activity was not attempted, code reason: 7-Patient Refused. 9-Not Applicable-not attempted and the patient did not perform the activity before the current illness, exacerbation or injury. 10-Not Attempted due to Environmental Limitations-(lack of equipment, weather restraints, etc.). 88-Not Attempted due to Medical Conditions or Safety Concerns. Eating (QC): 6 Other Treatment Pt educated on BUE exercises against gravity. Shldr flexion, horizontal shldr abd/add, finger flex/ext to increase strength by completing throughout the day. Demonstrates understanding of exercises. Will bring theraband and therapy sponge for pt next treatment. Pt is very communicative and wants to talk. After therapy, pt sitting in recliner with call light/phone in reach. All needs met in room. OT Small Appliance Assembly Supervisor Goals Small Appliance Assembly Supervisor Goals Time Frame: Feb 13, 2022 Eating (QC): 6 Oral Hygiene (QC): 5 Toileting Hygiene (QC): 4 Upper Body Dressing (QC): 4 Lower Body Dressing (QC): 4 On/Off Footwear (QC): 4 1=Demonstrate adherence to instructed precautions during ADL tasks. 2=Patient will verbalize/demonstrate understanding of assistive devices/modifications for ADL. 3=Patient will improve strength/tolerance for activity to enable patient to perform ADL's. OT Education/Plan Problem List/Assessment Assessment: Decreased Activ Tolerance, Decreased UE Strength, Dependent Transfers Discharge Recommendations Plan/Recommendations: Continue POC Treatment Plan/Plan of Care Patient would benefit from OT for education, treatment and training to promote independence in ADL's, mobility, safety and/or upper extremity function for ADL's. Plan of Care: ADL Retraining, Functional Mobility, Group Exercise/Act as Ind, UE Funct Exercise/Act Treatment Duration: Feb 13, 2022 Frequency: 3 times per week (3-5x/week) Estimated Hrs Per Day: .25 hour per day Agreement: Yes Rehab Potential: Fair Time/GCodes Start Time: 09:20 Stop Time: 09:45 Total Time Billed (hr/min): 25 Billed Treatment Time 1 visit-EX 1 (10 min) ADL 1 (15 min) JAN SALAS Jan 31, 2022 09:32
--- NOTE | 2022-01-31 09:34 | Physical Therapy Daily Note ---
PT Daily Note-Current Subjective Patient agrees to PT. Just returned from xray. Mental Status Patient Orientation: Normal For Age Attachments: Oxygen, Bernardo Catheter Transfers SCALE: Activities may be completed with or without assistive devices. 7-Rlenytiowy-pehgufk completes the activity by him/herself with no assistance from a helper. 5-Set-up or Clean-up Assistance-helper sets up or cleans up; patient completes activity. [place] assists only prior to or following the activity. 4-Supervision or Touching Assistance-helper provides verbal cues and/or touching/steadying and/or contact guard assistance as patient completes activity. Assistance may be provided throughout the activity or intermittently. 3-Partial/Moderate Assistance-helper does LESS THAN HALF the effort. [place] lifts, holds or supports trunk or limbs, but provides less than half the effort. 2-Substantial/Maximal Assistance-helper does MORE THAN HALF the effort. [place] lifts or holds trunk or limbs and provides more than half the effort. 7-Mwpxrckje-vcwxmk does ALL the effort. Patient does none of the effort to complete the activity. Or, the assistance of 2 or more helpers is required for the patient to complete the activity. If activity was not attempted, code reason: 7-Patient Refused. 9-Not Applicable-not attempted and the patient did not perform the activity before the current illness, exacerbation or injury. 10-Not Attempted due to Environmental Limitations-(lack of equipment, weather restraints, etc.). 88-Not Attempted due to Medical Conditions or Safety Concerns. Sit to Stand (QC): 2 Chair/Iju-gm-Jlhzq Xfer(QC): 2 Gait Training Distance: 15' Walk 10 feet (QC): 2 Gait Assistive Device: FWW flexed bilateral knees and trunk flexed posture Exercises Seated Therapy Exercises: Sit to stand Seated Reps: 3 Assessment Patient up in recliner with needs met. Patient improving with mobility and strength. PT Corncob Pipes Assembler Goals [facility] Goals PT Corncob Pipes Assembler Goals Time Frame: Feb 06, 2022 Roll Left & Right (QC): 6 Sit to Lying (QC): 6 Lying-Sitting on Side/Bed(QC): 6 Sit to Stand (QC): 4 Chair/Etq-jo-Zbeuu Xfer(QC): 4 Walk 10 feet (QC): 4 Walk 50ft with 2 Turns (QC): 4 PT Plan Treatment/Plan Treatment Plan: Continue Plan of Care Treatment Plan: Bed Mobility, Education, Functional Activity Ajith, Functional Strength, Gait, Safety, Therapeutic Exercise, Transfers Treatment Duration: Feb 06, 2022 Frequency: 6 times per week Estimated Hrs Per Day: .25 hour per day Patient and/or Family Agrees t: Yes Time/GCodes Time In: 850 Time Out: 906 Total Billed Treatment Time: 16 Total Billed Treatment 1 visit FA 16 min [facility] AM[facility] PT Jan 31, 2022 09:34
[2022-01-31 12:11] VITALS: BP 124/63
--- NOTE | 2022-01-31 14:14 | Physician Query Clarification ---
Physician Query-General Query to Physician: The medical record reflects the following clinical evidence: Clinical Indicators: Reporting Progressive SOB, RR on Admission 22, Day 2 was 25 - 39, 02 Sats predominately 94 to 96% on 2L, Sat did drop to 85% on 2L , Nursing Documentation of SOA at rest on admission and still documenting SOA at rest currently Risk Factor(s): Sepsis, Pneumonia, Cancer, Advance age, No documentation of home 02, Treatment: Supplemental O2, Multiple IV ABX, Albuterol, Respiratory monitoring 1. Acute respiratory failure, present on admission 2. Other explanation of clinical findings 3. Unable to determine (no explanation for clinical findings) Please clarify and document your clinical opinion in the progress notes and discharge summary including the definitive and/or presumptive diagnosis, (suspected or probable), related to the above clinical findings. Please include clinical findings supporting your diagnosis. Lyly Benz MSN, RN Clinical Supermarket Manager [phone] [email or web address] PHYSICIAN RESPONSE: Based on the clinical findings in the record, please respond to the query above on this document as an addendum. Physician Response: Physician Response ACUTE RESPIRATORY DISTRESS WITH RESPIRATORY FAILURE ON ADMISSION If you have questions please contact: City Marshal: Ext: Thank you for your time and cooperation. Clinical Supermarket Manager/City Marshal This is a permanent part of the medical record LYLY BENZ Jan 31, 2022 14:14 RED HERNDON MD Feb 01, 2022 09:16
--- NOTE | 2022-01-31 14:21 | Physician Query Clarification ---
Physician Query-General Query to Physician: The medical record reflects the following clinical evidence: Clinical Indicators: Admission Cr 1.55 eGFR 48 improved to 1.12 and 71 Risk Factor(s): Sepsis, Prostate CA, Treatment: Lab monitoring, I and O, IV fluids >7L since admission 2L in first 24 hours 1. Acute kidney failure, unspecified, present on admission 2. Other explanation of clinical findings 3. Unable to determine (no explanation for clinical findings) Please clarify and document your clinical opinion in the progress notes and discharge summary including the definitive and/or presumptive diagnosis, (suspected or probable), related to the above clinical findings. Please include clinical findings supporting your diagnosis. Lyly Benz MSN, RN Clinical Electric Motor Repair Supervisor [phone] [email or web address] PHYSICIAN RESPONSE: Based on the clinical findings in the record, please respond to the query above on this document as an addendum. Physician Response: Physician Response ACUTE RENAL FAILURE ON ADMISSION DUE TO DEHYDRATION If you have questions please contact: Cable Splicing Technician: Ext: Thank you for your time and cooperation. Clinical Electric Motor Repair Supervisor/Cable Splicing Technician This is a permanent part of the medical re cord LYLY BENZ Jan 31, 2022 14:21 RED HERNDON MD Feb 01, 2022 09:17
[2022-01-31 16:00] VITALS: BP 151/73
[2022-01-31 19:23] VITALS: BP 165/85
[2022-01-31] MEDS: cefTRIAXone 1 GM PRE-MIX 50 ML IV SCH (19:50)
[2022-01-31] MEDS ORDERED: AZITHROMYCIN 250 MG TAB (ZITHROMAX) PO SCH (21:00)
[2022-01-31 23:57] VITALS: BP 134/72
[2022-02-01] MEDS: RT-ALBUTEROL SULF 2.5 MG/3 ML PRE-MIX VIAL INH SCH (03:06)
[2022-02-01 03:55] VITALS: BP 150/74
[2022-02-01] MEDS: fentaNYL INJ 100 MCG/2 ML AMP IV PRN (04:00)
[2022-02-01] MEDS: NS W/KCL 20 MEQ/L 1,000 ML IV SCH (05:22)
[2022-02-01 05:49] LABS: MEAN CORPUSCULAR VOLUME 99 fL (80-99); MONOCYTES % (AUTO) 8 % (0-12)
[2022-02-01 05:51] LABS: BASOPHILS % (AUTO) 0 % (0-10); EOSINOPHILS # (AUTO) 0.1 10^3/uL (0.0-0.3); EOSINOPHILS % (AUTO) 1 % (0-10); HEMATOCRIT 31 % (40-54); LYMPHOCYTES # (AUTO) 1.3 10^3/uL (1.0-4.0); LYMPHOCYTES % (AUTO) 17 % (12-44); MEAN CORPUSCULAR HEMOGLOBIN 32 pg (25-34); MEAN CORPUSCULAR HGB CONC 33 g/dL (32-36); MEAN PLATELET VOLUME 10.9 fL (9.0-12.2); MONOCYTES # (AUTO) 0.6 10^3/uL (0.0-1.0); NEUTROPHILS # (AUTO) 5.7 10^3/uL (1.8-7.8); NEUTROPHILS % (AUTO) 73 % (42-75); PLATELET COUNT 130 10^3/uL (130-400); WHITE BLOOD COUNT 7.8 10^3/uL (4.3-11.0)
[2022-02-01 06:08] LABS: ALBUMIN 2.8 GM/DL (3.2-4.5); POTASSIUM 3.3 MMOL/L (3.6-5.0)
[2022-02-01 06:10] LABS: CALCIUM 8.9 MG/DL (8.5-10.1)
[2022-02-01 06:11] LABS: TOTAL PROTEIN 5.9 GM/DL (6.4-8.2)
[2022-02-01 06:13] LABS: BILIRUBIN,TOTAL 0.5 MG/DL (0.1-1.0)
[2022-02-01 06:14] LABS: CREATININE SERUM 1.02 MG/DL (0.60-1.30)
[2022-02-01 06:17] LABS: MAGNESIUM 1.6 MG/DL (1.6-2.4)
[2022-02-01 06:29] VITALS: BP 150/74
[2022-02-01 07:04] VITALS: BP 153/75
[2022-02-01] MEDS ORDERED: RT-ALBUTEROL SULF 2.5 MG/3 ML PRE-MIX VIAL INH SCH (08:00)
--- NOTE | 2022-02-01 09:12 | Physical Therapy Daily Note ---
PT Daily Note-Current Subjective Patient agrees to PT. Mental Status Patient Orientation: Normal For Age Attachments: Bernardo Catheter, IV Transfers SCALE: Activities may be completed with or without assistive devices. 7-Mgyfgqalga-uclywmi completes the activity by him/herself with no assistance from a helper. 5-Set-up or Clean-up Assistance-helper sets up or cleans up; patient completes activity. [place] assists only prior to or following the activity. 4-Supervision or Touching Assistance-helper provides verbal cues and/or touching/steadying and/or contact guard assistance as patient completes activity. Assistance may be provided throughout the activity or intermittently. 3-Partial/Moderate Assistance-helper does LESS THAN HALF the effort. [place] lifts, holds or supports trunk or limbs, but provides less than half the effort. 2-Substantial/Maximal Assistance-helper does MORE THAN HALF the effort. [place] lifts or holds trunk or limbs and provides more than half the effort. 5-Mtkmlzmyq-rrayxs does ALL the effort. Patient does none of the effort to complete the activity. Or, the assistance of 2 or more helpers is required for the patient to complete the activity. If activity was not attempted, code reason: 7-Patient Refused. 9-Not Applicable-not attempted and the patient did not perform the activity before the current illness, exacerbation or injury. 10-Not Attempted due to Environmental Limitations-(lack of equipment, weather restraints, etc.). 88-Not Attempted due to Medical Conditions or Safety Concerns. Lying to Sitting/Side of Bed(Q: 3 Sit to Stand (QC): 3 Chair/Wqo-ph-Jnoui Xfer(QC): 3 Gait Training Distance: 100' Walk 10 feet (QC): 3 Walk 50 ft with 2 Turns(QC): 3 Gait Assistive Device: FWW very slow gait sequence/much improved Exercises Seated Therapy Exercises: Ankle pumps, Long arc quads, Hip flexion Seated Reps: 12 Assessment Patient up in recliner with needs met. Improving with treatment plan and will dismiss to NH on this date per report. PT Ibm [employer] Commerce Consultant Goals [facility] Goals PT [facility] Goals Time Frame: Feb 06, 2022 Roll Left & Right (QC): 6 Sit to Lying (QC): 6 Lying-Sitting on Side/Bed(QC): 6 Sit to Stand (QC): 4 Chair/Jaf-ur-Rvnui Xfer(QC): 4 Walk 10 feet (QC): 4 Walk 50ft with 2 Turns (QC): 4 PT Plan Treatment/Plan Treatment Plan: Continue Plan of Care Treatment Plan: Bed Mobility, Education, Functional Activity Ajith, Functional Strength, Gait, Safety, Therapeutic Exercise, Transfers Treatment Duration: Feb 06, 2022 Frequency: 6 times per week Estimated Hrs Per Day: .25 hour per day Patient and/or Family Agrees t: Yes Time/GCodes Time In: 756 Time Out: 810 Total Billed Treatment Time: 14 Total Billed Treatment 1 visit FA 14 min [facility] AM[facility]OS[facility] PT Feb 01, 2022 09:12
--- NOTE | 2022-02-01 09:19 | Discharge Summary ---
Diagnosis/Chief Complaint Date of Admission Jan 29, 2022 at 19:15 Date of Discharge Discharge Date: Feb 01, 2022 Discharge Time: 11:00 Admission Diagnosis Admission Diagnosis SEPSIS RESPIRATORY DISTRESS WITH RESPIRATORY FAILURE RIGHT UPPER LOBE PNEUMONIA HYPOTENSION WITH CHRONIC HYPERTENSION GENERALIZED WEAKNESS CHRONIC CROHN'S DISEASE METASTATIC PROSTATE CANCER LEUKOCYTOSIS ELEVATED PROCALCITONIN ELEVATED CK MILD HYPONATREMIA ACUTE RENAL FAILURE DEHYDRATION ANEMIA THROMBOCYTOPENIA MALNOURISHMENT UNDERWEIGHT CHRONIC PAIN SYNDROME Discharge Diagnosis SEPSIS RESPIRATORY DISTRESS WITH RESPIRATORY FAILURE RIGHT UPPER LOBE PNEUMONIA HYPOTENSION WITH CHRONIC HYPERTENSION GENERALIZED WEAKNESS CHRONIC CROHN'S DISEASE METASTATIC PROSTATE CANCER LEUKOCYTOSIS ELEVATED PROCALCITONIN ELEVATED CK MILD HYPONATREMIA ACUTE RENAL FAILURE DEHYDRATION ANEMIA THROMBOCYTOPENIA MALNOURISHMENT UNDERWEIGHT CHRONIC PAIN SYNDROME Reason Hospital Visit NIGEL IS A 71 Y/O MALE WHO IS KNOWN TO ME FROM CLINIC. CATALINA HAS HISTORY OF METASTATIC PROSTATE CANCER WITH MOST RECENT PET SCAN SHOWED HYPERMETABOLIC ACTIVITY OF THESE NODES. NIGEL APPARENTLY HAS BEEN HAVING SHORTNESS OF BREATH THAT HAS PROGRESSED OVER THE PAST FEW DAYS CULMINATING IN AN EMERGENT TRANSFER TO THE ER FOR EVALUATION. HE WAS FOUND TO BE SEPTIC AND HAVE A LARGE OBSTRUCTIVE APPEARING PNEUMONIA ON IMAGING. Discharge Summary Discharge Physical Examination Allergies: Coded Allergies: adalimumab (Verified Allergy, Unknown, 03/07/14) infliximab (Verified Allergy, Unknown, NEAR , 03/07/14) meloxicam (Unverified Allergy, Unknown, 12/24/16) metoclopramide (Verified Allergy, Unknown, 03/07/14) aspirin (Verified Adverse Reaction, Unknown, 03/07/14) Was told by his physician not to take it due to his Crohn's disease. Vitals & I&Os Vital Signs Date Time Temp Pulse Resp B/P (MAP) Pulse Ox O2 Delivery O2 Flow Rate FiO2 02/01/22 09:30 91 Room Air 02/01/22 07:37 2.00 02/01/22 07:04 37.8 70 18 153/75 (101) 02/01/22 06:29 28 General Appearance: Alert, Oriented X3, Cooperative, No Acute Distress HEENT: Atraumatic, PERRLA, Mucous Memb Moist/[place] Respiratory: Normal Air Movement, Other (FAINT CRACKLES MID RIGHT LUNG) Cardiovascular: Regular Rate Abdominal: Normal Bowel Sounds, Soft, No Tenderness Extremities: No Clubbing, No Cyanosis Skin: No Rashes Neuro: Cranial Nerves 3-12 NL Psych/Mental Status: Mental Status NL, Mood NL Hospital Course Was the Problem List Reviewed?: Yes SEPSIS RESPIRATORY DISTRESS WITH RESPIRATORY FAILURE RIGHT UPPER LOBE PNEUMONIA HYPOTENSION WITH CHRONIC HYPERTENSION GENERALIZED WEAKNESS CHRONIC CROHN'S DISEASE METASTATIC PROSTATE CANCER LEUKOCYTOSIS ELEVATED PROCALCITONIN ELEVATED CK MILD HYPONATREMIA ACUTE RENAL FAILURE DEHYDRATION ANEMIA THROMBOCYTOPENIA MALNOURISHMENT UNDERWEIGHT CHRONIC PAIN SYNDROME SEPSIS WITH RESPIRATORY DISTRESS DUE TO RIGHT UPPER LOBE PNEUMONIA - PT ON SEPSIS PROTOCOL - CONSULT PLACED INITIALLY TO EICU - PT WILL BE TRANSFERRED OUT OF ICU TO 4TH FLOOR TODAY - PT IS STABLE FOR FLOOR MANAGEMENT. - PT CONTINUES WITH COMMUNITY ACQUIRED PNEUMONIA PROTOCOL - CHANGED TO AZITHROMYCIN AND CEFDINIR. - WILL CHECK REPEAT CT SCAN OF CHEST IN 2-3 WEEKS CXR SHOWED IMPROVEMENT - REPEAT CXR ON 02/04/22 - MONITOR LABS. HYPOTENSION WITH CHRONIC HYPERTENSION - HYPOTENSION IMPROVED, MONITOR, WILL RESTART HOME MEDS TOMORROW. GENERALIZED WEAKNESS WITH MALNOURISHMENT, WEIGHT LOSS, AND CHRONIC BACK PAIN - PLANNING ON THERAPY AT ASSISTED - PT TO BE [facility] CHRONIC CROHN'S DISEASE - SUPPORTIVE CARE METASTATIC PROSTATE CANCER - WE WILL SEND A COPY OF HIS NOTE TO HIS PRIMARY ONCOLOGIST. LEUKOCYTOSIS ELEVATED PROCALCITONIN ELEVATED CK - MONTIOR LABS MILD HYPONATREMIA - IMPROVED THIS MORNING REPEAT LABS IN MORNING. ACUTE RENAL INSUFFICIENCY - IMPROVED WITH HYDRATION ANEMIA AND THROMBOCYTOPENIA - WORSENING TODAY - WILL MONITOR H AND H CHRONIC PAIN SYNDROME - RESUMED HOME OXYCONTIN DOSING TO PREVENT WITHDRAWALS. DVT PROPHYLAXIS WITH SCD'S HOLD OFF ON LOVENOX RIGHT NOW DUE TO THROMBOCYTOPENIA GI PROHYLAXIS WITH PPI THERAPY Pending Labs Laboratory Tests 02/01/22 05:30: White Blood Count 7.8, Red Blood Count 3.10, Hemoglobin 10.0, Hematocrit 31, Mean Corpuscular Volume 99, Mean Corpuscular Hemoglobin 32, Mean Corpuscular Hemoglobin Concent 33, Red Cell Distribution Width 13.0, Platelet Count 130, Mean Platelet Volume 10.9, Immature Granulocyte % (Auto) 1, Neutrophils (%) (Auto) 73, Lymphocytes (%) (Auto) 17, Monocytes (%) (Auto) 8, Eosinophils (%) (Auto) 1, Basophils (%) (Auto) 0, Neutrophils # (Auto) 5.7, Lymphocytes # (Auto) 1.3, Monocytes # (Auto) 0.6, Eosinophils # (Auto) 0.1, Basophils # (Auto) 0.0, Immature Granulocyte # (Auto) 0.1, Percent Immature Platelet Fraction 4.7, Sodium Level 138, Potassium Level 3.3, Chloride Level 111, Carbon Dioxide Level 17, Anion Gap 10, Blood Urea Nitrogen 13, Creatinine 1.02, Estimat Glomerular Filtration Rate 79, BUN/Creatinine Ratio 13, Glucose Level 121, Calcium Level 8.9, Corrected Calcium 9.9, Magnesium Level 1.6, Total Bilirubin 0.5, Aspartate Amino Transf (AST/SGOT) 23, Alanine Aminotransferase (ALT/SGPT) 20, Alkaline Phosphatase 78, Total Protein 5.9, Albumin 2.8 Discharge Condition at discharge IMPROVED Instructions to patient/family Please see electronic discharge instructions given to patient. Discharge Medications Reviewed and agree with Discharge Medication list on patient's Discharge Instruction sheet Clinical Quality Measures DVT/VTE Risk/Contraindication: Contraindications-Pharm: Other *list below* Other: HOLDING LOVENOX DUE TO ACute DROP IN PLTS RED HERNDON MD Feb 01, 2022 09:18
[2022-02-01] MEDS ORDERED: MULT-1067 PO (09:25)
[2022-02-01] MEDS ORDERED: AZIT250T12 PO (09:25)
[2022-02-01] MEDS ORDERED: OXYC30TA77 PO (09:25)
[2022-02-01] MEDS ORDERED: CEFD300C3 PO (09:25)
[2022-02-01] MEDS ORDERED: ACET-93 PO (09:25)
[2022-02-01] MEDS ORDERED: OLME40TA18 PO (09:25)
[2022-02-01] MEDS ORDERED: CHOL10007 PO (09:25)
[2022-02-01] MEDS ORDERED: CYAN100015 PO (09:25)
[2022-02-01] MEDS ORDERED: FAMO-119 PO (09:25)
[2022-02-01] MEDS ORDERED: LACT1CAP87 PO (09:25)
[2022-02-01] MEDS ORDERED: ALPR0.5T7 PO (09:25)
[2022-02-01] MEDS ORDERED: HYDR-3820 PO (09:25)
[2022-02-01] MEDS ORDERED: ALBU2.5V4 INH ×2 (09:25)
[2022-02-01] MEDS: ACETAMINOPHEN 500 MG TAB (TYLENOL) PO SCH ×2 (09:28→12:55)
[2022-02-01] MEDS: PANTOPRAZOLE 40 MG (PROTONIX) VIAL IV SCH (09:28)
[2022-02-01] MEDS: oxyCODONE ER 10 MG (OxyCONTIN CR) TAB PO SCH (09:28)
--- NOTE | 2022-02-01 09:29 | Discharge Inst-Skilled Nursing ---
Discharge Inst-Skilled NF Reconcile Patient Problems Problems Reviewed?: Yes Patient Instructions Patient Problems: SEPSIS RESPIRATORY DISTRESS WITH RESPIRATORY FAILURE RIGHT UPPER LOBE PNEUMONIA HYPOTENSION WITH CHRONIC HYPERTENSION GENERALIZED WEAKNESS CHRONIC CROHN'S DISEASE METASTATIC PROSTATE CANCER LEUKOCYTOSIS ELEVATED PROCALCITONIN ELEVATED CK MILD HYPONATREMIA ACUTE RENAL FAILURE DEHYDRATION ANEMIA THROMBOCYTOPENIA MALNOURISHMENT UNDERWEIGHT CHRONIC PAIN SYNDROME Goal: improved chest wall pain, improved strength, improved pneumonia Consult/Follow Up/Orders Follow Up Appt.: 1 wk [facility] keep previously scheduled appts with oncologist Skilled NF Admit to: [facility] Certification ([facility]) I certify that [facility] services are required to be given on an inpatient basis because of the above named patient's need for care home care on a continuing basis for the conditions(s) for which he/she was receiving inpatient hospital services prior to his/her transfer to the SNF. Long-Term Facility Order: Nursing Services, [employer] Clerk-Evaluate & Treat, Physical Therapy-Evaluate & Treat Discharge Diet: Regular Diet Daily Activity as Tolerated: Yes Resuscitation Status: Do Not Resuscitate New & Resume Previous Orders New & Resume Previous Orders repeat chest xray on 02/04/22 ct of chest with and without iv contrast in 10 days from [place] correction to set up the ct scan cbc, cmp on 02/04/22 Red Becerra Feb 01, 2022 09:26 RED BECERRA MD Feb 01, 2022 09:29
[2022-02-01 11:15] VITALS: BP 147/73
== END 2022-02-01 13:00 | DRG 871 ==
LOC: EDUNIT# 17:55 → ER 17:56 → ICU 19:15 → 4TH 01-30 11:00
PROVIDERS: ADMIT Family Medicine; ATTEND Family Medicine
DX: A41.9 Sepsis, unspecified organism (principal); J18.9 Pneumonia, unspecified organism; J96.90 Respiratory failure, unspecified, unspecified whether with hypoxia or hypercapnia; K50.90 Crohn's disease, unspecified, without complications; C79.82 Secondary malignant neoplasm of genital organs; E87.1 Hypo-osmolality and hyponatremia; N17.9 Acute kidney failure, unspecified; E46 Unspecified protein-calorie malnutrition; I95.9 Hypotension, unspecified; I10 Essential (primary) hypertension; R53.1 Weakness; D72.829 Elevated white blood cell count, unspecified; E86.0 Dehydration; D64.9 Anemia, unspecified; D69.6 Thrombocytopenia, unspecified; G89.4 Chronic pain syndrome; K21.9 Gastro-esophageal reflux disease without esophagitis; M19.90 Unspecified osteoarthritis, unspecified site; E11.9 Type 2 diabetes mellitus without complications; H40.9 Unspecified glaucoma; Z20.822 Contact with and (suspected) exposure to COVID-19; Z68.21 Body mass index [BMI] 21.0-21.9, adult
CPT/HCPCS: 36415; 71045; 71046; 71250; 74176; 80053; 81000; 82150; 82550; 82553; 83605; 83690; 83735; 83874; 83880; 84100; 84145; 84484; 85007; 85025; 85027; 85610; 85652; 85730; 86141; 87040; 87081; 87088; 87636; 93005; 93041; 94640; 94664; 94760; 94761

== ENCOUNTER → 2022-02-19 | Outpatient (CLI) | payer MEDICARE, BC ==
[~2022-02-19] MED LIST changes: +ACET-93 PO; +ALBU2.5V4 INH; +AZIT250T12 PO; +CEFD300C3 PO; +CHOL10007 PO; +CYAN100015 PO; +FAMO-119 PO; +LACT1CAP87 PO; +MULT-1067 PO; +OLME40TA18 PO
--- NOTE | 2022-02-19 13:19 | Diagnostic Imaging Report ---
EXAMINATION: CT chest without contrast. TECHNIQUE: Multiple contiguous axial images were obtained through the chest without the use of intravenous contrast. All CT scans use one or more of the following dose optimizing techniques: automated exposure control, MA and/or KvP adjustment based on patient size and exam type or iterative reconstruction. HISTORY: Lymphadenopathy. COMPARISON: 01/29/2022 FINDINGS: There has been slight decrease in the right upper and middle lobe consolidation but it does persist. There are few air bronchograms. No pleural effusion. No pneumothorax. No suspicious nodules. There is no axillary or supraclavicular lymphadenopathy. There is a 13 mm right lower paratracheal lymph node that is unchanged. Heart size is normal. There are mild coronary artery calcifications. No pericardial effusion. Aorta is normal in caliber. Limited views of the upper abdomen show numerous cysts in left kidney, unchanged. There are no suspicious osseous lesions. IMPRESSION: 1. Persistent consolidation in the right upper middle lobe is slightly decreased from prior exam. This is favored to represent resolving pneumonia but an additional 6-8 week follow-up is recommended to exclude an invasive mucinous adenocarcinoma. 2. Stable mediastinal mildly enlarged lymph nodes which are likely reactive. Dictated by: Dictated on workstation # [id number]
== END ==
LOC: RAD 08:45
PROVIDERS: ATTEND Family Medicine
DX: R59.0 Localized enlarged lymph nodes (principal)
CPT/HCPCS: 71250

== ENCOUNTER → 2022-04-19 | Outpatient (CLI) | payer MEDICARE, BC ==
--- NOTE | 2022-04-19 16:18 | Diagnostic Imaging Report ---
PROCEDURE: CT chest without contrast. TECHNIQUE: Multiple contiguous axial images were obtained through the chest without the use of intravenous contrast. Auto Exposure Controls were utilized during the CT exam to meet ALARA standards for radiation dose reduction. DATE: April 19, 2022. COMPARISON: CT chest February 19, 2022. INDICATION: 71-year-old male, history of prostate cancer. Shortness of breath. Followup pneumonia. PROCEDURE: Axial noncontrasted CT images of the chest. Noncontrasted limits the evaluation of the mediastinum and vascular structures. FINDINGS: There is new nodular masslike consolidation in the left lower lobe measuring 5.3 x 3.8 cm in axial extent on current axial image 120. There is interval improved airspace consolidation in the right upper and right middle lobe since prior CT chest exam with residual linear opacities in this distribution most consistent with scarring and/or atelectasis. There is no additional identified pulmonary nodule or lung mass. There is no pneumothorax. There is no pleural effusion. The central airways are patent. The heart is not enlarged. There is no pericardial effusion. The gallbladder is surgically absent. There are numerous low-attenuation left renal lesions most likely reflecting numerous left renal cysts. There is no identified bone lesion suspicious for a bone metastasis. There is a superior endplate concavity of T4 which is unchanged. IMPRESSION: 1. New nodular masslike consolidation in the left lower lobe since February 19, 2022. Primary differential diagnostic considerations include pneumonia or malignancy. Particularly if there is little clinical concern for pneumonia, PET/CT or CT-guided biopsy is recommended. 2. Interval improved aeration of the right upper lobe and right middle lobe at site of previously noted consolidation with predominantly linear opacities in this distribution currently most compatible with scarring and/or atelectasis. Dictated by: Dictated on workstation # [id number]
== END ==
LOC: RAD 14:45
PROVIDERS: ATTEND Nurse Practitioner Family
DX: J18.9 Pneumonia, unspecified organism (principal); Z85.46 Personal history of malignant neoplasm of prostate
CPT/HCPCS: 71250

== ENCOUNTER → 2022-05-07 | Outpatient (CLI) | payer MEDICARE, BC ==
[~2022-05-07] MED LIST changes: +CATHETER FLUSH 10 ML SYR IV PRN; +HOLD METFORMIN - RECEIVED CONTRAST 20 ML VIAL IV SCH; +IOHEXOL 350 MG/ML 100 ML (OMNIPAQUE 350) VIAL IV ONE; +NS 100 ML (IVPB) BAG IV ONE
[2022-05-07 10:52] LABS: POTASSIUM 3.8 MMOL/L (3.6-5.0)
[2022-05-07 10:54] LABS: CALCIUM 9.2 MG/DL (8.5-10.1)
[2022-05-07 10:58] LABS: CREATININE SERUM 1.46 MG/DL (0.60-1.30)
--- NOTE | 2022-05-07 13:20 | Diagnostic Imaging Report ---
PROCEDURE: CT chest with contrast only. TECHNIQUE: Multiple contiguous axial images were obtained through the chest after administration of intravenous contrast. Auto Exposure Controls were utilized during the CT exam to meet ALARA standards for radiation dose reduction. INDICATION: Lung mass. COMPARISON: Chest CT of 04/19/2022 and 02/19/2022. FINDINGS: A multilobulated and somewhat linear and branching morphology of an infrahilar left lower lobe lung mass is again noted; however, it has decreased in size from the prior exam and today measures 4.8 x 2.8 cm, previously 5.3 x 3.8 cm. No new lung mass is found. Some residual scarring or partial atelectasis in the juxta fissural right middle lobe is noted. No adverse development. No new lesion. No lymphadenopathy. No effusion or pneumothorax. IMPRESSION: 1. Multilobulated mass in the left lower lobe lung, decreased in size from prior, with no adverse development or lymphadenopathy. Regression over this time course is felt to favor benignity but continued followup is recommended. Assuming the absence of adverse interval change, a repeat chest CT in 3 months time would be recommended. This would not require IV contrast. 2. Not mentioned above are innumerable cysts replacing the upper pole of the left kidney and there is intra and extrahepatic bile duct dilatation, all unchanged from priors. Dictated by: Dictated on workstation # [id number]
== END ==
LOC: RAD 10:30
PROVIDERS: ATTEND Nurse Practitioner Family
DX: R91.8 Other nonspecific abnormal finding of lung field (principal); N28.1 Cyst of kidney, acquired
CPT/HCPCS: 36415; 71260; 80048

== ENCOUNTER → 2022-08-20 | Outpatient (CLI) | payer MEDICARE, BC ==
[2022-08-20 13:40] LABS: CREATININE SERUM 1.37 MG/DL (0.60-1.30)
--- NOTE | 2022-08-20 16:54 | Diagnostic Imaging Report ---
INDICATION: Left shoulder injury with pain. AP, oblique and transscapular views of the left shoulder are obtained. FINDINGS: There is mild right convexity curvature of the upper thoracic spine. No acute fracture or dislocation is identified. No abnormal lytic or sclerotic focus is seen, and there is no radiopaque foreign body. IMPRESSION: No acute abnormality. Note is made of chronic appearing mild right convexity upper thoracic spinal curvature. Dictated by: Dictated on workstation # [id number]
--- NOTE | 2022-08-20 17:25 | Diagnostic Imaging Report ---
PROCEDURE: CT chest with contrast only. TECHNIQUE: Multiple contiguous axial images were obtained through the chest after administration of intravenous contrast. Auto Exposure Controls were utilized during the CT exam to meet ALARA standards for radiation dose reduction. DATE: August 20, 2022. COMPARISON: CT chest May 07, 2022. Additional CT chest imaging dating back to at least March 21, 2016. INDICATION: 71-year-old male, followup lung mass. Left shoulder pain. FINDINGS: There is a 4 mm nodular opacity in the left upper lobe on axial image 100 which is new since May 07, 2022. There are subjacent areas of nodularity in the left lower lobe on axial image 111 and adjacent sequential images with foci of nodularity measuring up to approximately 10, 13, and 14 mm in size. This is notably decreased in size since May 07, 2022. There is no additional identified pulmonary nodule. There are linear opacities in the right middle lobe and right upper lobe most consistent with mild atelectasis and/or scarring. There is mild dependent atelectasis in the lower lobes. There is minimal atelectasis in the lingula. There is no lung mass. There is no additional focal airspace consolidation. There is no pneumothorax. There is no pleural effusion. The central airways are patent. The heart is not enlarged. There is no pericardial effusion. There is no mediastinal, hilar, or axillary lymph node meeting CT size criteria for adenopathy. The gallbladder surgically absent. There is moderate bilateral intrahepatic bile duct dilation. The common bile duct measures up to 1.3 cm in size. The common bile duct is not imaged to its insertion. The pancreas is only partially imaged. There are numerous cystic left renal lesions likely relating to multiple cysts. There is no identified acute bony abnormality. IMPRESSION: CT CHEST. 1. Notable decrease in size in previous noted areas of nodularity in the left lower lobe on May 07, 2022. Particularly if there have been no treatment related changes for malignancy, this is most consistent with an infectious or inflammatory etiology. 2. 4 mm left upper lobe pulmonary nodule which is new since May 07, 2022. Followup CT chest in 3 months is recommended. 3. Moderate intrahepatic bile duct dilation and dilation of the common bile duct which is incompletely imaged and also present on May 07, 2022. Dictated by: Dictated on workstation # [id number]
== END ==
LOC: RAD 13:15
PROVIDERS: ATTEND Nurse Practitioner Family
DX: M25.511 Pain in right shoulder (principal); R91.1 Solitary pulmonary nodule; K83.8 Other specified diseases of biliary tract; Z90.49 Acquired absence of other specified parts of digestive tract
CPT/HCPCS: 36415; 71260; 73030; 82565

== ENCOUNTER → 2022-09-27 | Outpatient (CLI) | payer MEDICARE, BC ==
[~2022-09-27] MED LIST changes: -CATHETER FLUSH 10 ML SYR IV PRN; -HOLD METFORMIN - RECEIVED CONTRAST 20 ML VIAL IV SCH; -IOHEXOL 350 MG/ML 100 ML (OMNIPAQUE 350) VIAL IV ONE; -NS 100 ML (IVPB) BAG IV ONE; +OLME-39 PO; -OLME1TAB21 PO
--- NOTE | 2022-09-27 14:01 | Diagnostic Imaging Report ---
EXAMINATION: Magnetic resonance imaging of the left shoulder without contrast. DATE: September 27, 2022. COMPARISON: Left shoulder radiographs August 20, 2022. HISTORY: 71-year-old male, left shoulder pain. TECHNIQUE: Magnetic Resonance Imaging sequences were performed of the shoulder without contrast. FINDINGS: ROTATOR CUFF, LIGAMENTS, TENDONS, AND MUSCLES: The supraspinatus, infraspinatus, teres minor, and subscapularis tendons and muscles are intact. There is normal rotator cuff muscle bulk and signal. LONG HEAD OF BICEPS: The biceps labral attachment and long head of the biceps tendon is intact. The long head of the biceps tendon is normally positioned within the bicipital groove. GLENOHUMERAL JOINT: The humeral head is well positioned relative to the glenoid. The labrum is grossly intact. There is no identified paralabral cyst. The articular cartilage is grossly intact. There is no joint effusion. ACROMIOCLAVICULAR JOINT: The acromioclavicular joint is normally aligned. The coracoclavicular and coracoacromial ligaments are intact. There are mild acromioclavicular degenerative changes without large undersurface osteophyte. BONE: There is no os acromiale. There is no Hill-Sachs deformity. There is no acute fracture, bone contusion, or evidence of osteonecrosis. BURSAE AND SOFT TISSUES: The bursae and soft tissue surrounding the shoulder are unremarkable. IMPRESSION: 1. Intact rotator cuff and proximal long head of biceps tendon. 2. Mild acromioclavicular degenerative changes without large undersurface osteophyte. 3. Grossly intact labrum and unremarkable additional glenohumeral joint assessment. 4. No acute fracture, bone contusion, or evidence of osteonecrosis. Dictated by: Dictated on workstation # [id number]
== END ==
LOC: RAD 11:58
PROVIDERS: ATTEND Family Medicine
DX: M19.012 Primary osteoarthritis, left shoulder (principal); M25.712 Osteophyte, left shoulder
CPT/HCPCS: 73221